=== PATIENT | female | born 1970 | race Caucasian/White ===

== ENCOUNTER 2019-10-28 11:15 | Emergency (ER) | payer MEDICAID, SELFPAY ==
[2019-10-28 11:30] VITALS: PULSE 102; RESP 20; TEMP 36.7; O2SAT 92; BMI 41.1
[2019-10-28 11:36] VITALS: BP 204/126
--- NOTE | 2019-10-28 11:42 | W.ED.GENADLT ---
HPI - General Adult General: Chief complaint: Headache Stated complaint: H/A Time Seen by Provider: 10/28/19 11:31 History of Present Illness: HPI narrative: Patient is had a headache for 2 weeks. I reviewed her MRI from February where she says she was told she had a mass in her brain and there is no mass on that report. Patient relates that she feels like she has stress tension and possible migraine as she has had in the past. MD complaint: Headache Onset (ago): day(s) Location: head Severity: moderate Severity scale (1-10): 6 Quality: aching Pain Consistency: intermittent Relieving factors: none Associated symptoms: Reports no associated symptoms and headache(s); Deny chest pain, dyspnea, nausea, rash or vomiting Review of Systems Const: Denies: fever, chills or body aches Eyes: Denies: change in vision or blurry vision ENMT: Denies: throat pain or nasal congestion Card: Denies: chest pain or shortness of breath on exertion Resp: Denies: shortness of breath, productive cough or non-productive cough GI: Denies: abdominal pain, nausea or vomiting Musc: Denies: extremity pain Skin/Breast: Denies: rash Neuro: Reports: headache Psych: Denies: anxiety or depression Marlon/Lymph: Denies: easy bruising PFSH ED PFSH: Social History Smoking and tobacco status: never smoked Physical Exam Const: COMMON NORMALS: no apparent distress, average body habitus and oriented x3 HENMT: COMMON NORMALS: normocephalic HEAD & SCALP: normal to inspection and normocephalic FACE & SINUS: normal facial exam Eye: COMMON NORMALS: conjunctivae normal GENERAL EYE: normal appearance of both eyes CONJUNCTIVA: Yes conjunctivae normal Neck/C-Spine: COMMON NORMALS: no JVD Chest: COMMONS NORMALS: inspection of chest normal Resp: COMMON NORMALS: normal respiratory effort and clear to auscultation bilaterally AUSCULTATION: clear to auscultation bilaterally Cardio: COMMON NORMALS: no JVD, regular rate and regular rhythm RATE: regular rate RHYTHM: regular rhythm GI: COMMON NORMALS: normal to inspection, nondistended, normoactive bowel sounds Extremity: COMMON NORMALS: normal to inspection and full ROM Neuro: COMMON NORMALS: oriented x3 and CN's II-XII intact bilaterally Course Vital Signs: Vital signs: Vital Signs Temperature 98.0 F 10/28/19 11:30 Pulse Rate 102 H 10/28/19 11:30 Respiratory Rate 20 H 10/28/19 11:30 Blood Pressure 204/126 10/28/19 11:36 Pulse Oximetry 92 10/28/19 11:30 Coding Level of Care Code ED Concrete Finisher Apprentice for Evelyn Berg
[2019-10-28] MEDS: sodium chloride 0.9% 1,000 ML 999 ML IV (12:02)
[2019-10-28] MEDS: metoclopramide 5 mg/mL SDV 2 mL 10 MG IVP (12:03)
[2019-10-28] MEDS: ketorolac 30 mg/mL INJ IVP (12:04)
[2019-10-28 13:36] VITALS: BP 172/100; PULSE 84; RESP 16; TEMP 36.3; O2SAT 97
== END 2019-10-28 13:37 | disposition home or self-care (01) ==
PROVIDERS: Emergency Provider Nurse Practitioner Family; Family Provider Nurse Practitioner Family; PCP Nurse Practitioner Family
DX: R51 Headache (principal)
CPT/HCPCS: 96361; 96374; 96375; 99282; 99283; J1885; J2765; J7030

== ENCOUNTER 2019-11-01 09:56 | Emergency (ER) | payer MEDICAID, SELFPAY ==
[2019-11-01 09:56] VITALS: BP 132/97; PULSE 96; RESP 20; TEMP 36.7; O2SAT 96; BMI 41.1
[2019-11-01 10:02] VITALS: O2SAT 96
--- NOTE | 2019-11-01 10:19 | W.ED.URI ---
HPI - URI/Sore Throat General: Chief Complaint: Upper Respiratory Infection Stated Complaint: FEVER N/V History of Present Illness: HPI Narrative: 49 yo female presents with nause, vomiting, fever. MD elicited complaint: fever PFSH ED PFSH: Social History Smoking and tobacco status: never smoked Course Vital Signs: Vital signs: Vital Signs Temperature 98.1 F 11/01/19 09:56 Pulse Rate 96 11/01/19 09:56 Respiratory Rate 20 H 11/01/19 09:56 Blood Pressure 132/97 11/01/19 09:56 Pulse Oximetry 96 11/01/19 09:56 Discharge Plan Discharge Prescriptions: No Action Esgic 50-325-40 mg capsule 1 cap PO Q6H PRN (Reason: pain) Qty: 14 RF: 0 Coding Level of Care Code ED Carpenter General for Evelyn Berg
[2019-11-01 10:47] LABS: Influenza A by IFA Negative (Negative); Influenza B by IFA Negative (Negative)
--- NOTE | 2019-11-01 11:12 | XR_ITS ---
WS: [id number] Portable AP upright chest, 11/01/2019 Clinical Data: cough/congestion Comparison: Portable chest, 02/08/2019. Findings: No nodules, masses or effusions are seen. The heart is normal. The pulmonary vascularity is not increased. No pneumonia or pneumothorax is seen. There is diminished aeration in the upper lobes unchanged. XR/XR chest 1V portable [id number] Impression: Probable chronic obstructive pulmonary disease.
--- NOTE | 2019-11-01 11:25 | PC.NURSE ---
RADIOLOGY AT BEDSIDE FOR CHEST XRAY
--- NOTE | 2019-11-01 11:34 | ED_ITS ---
HPI - General Adult General: Chief complaint: Upper Respiratory Infection Stated complaint: FEVER N/V Time Seen by Provider: 11/01/19 10:26 Source: patient Mode of arrival: ambulatory Limitations: no limitations History of Present Illness: HPI narrative: Patient is a 49-year-old female who presents to ED today with multiple medical complaints. She tells me over the past 2 weeks she has had intermittent fevers, body aches, cough, congestion, sinus pain, headache, abdominal pain, nausea, vomiting, and diarrhea. She has not had any blood in her vomit or diarrhea. She is afebrile upon arrival. Patient has multiple chronic medical conditions and is completely noncompliant with her medication regimen. According to pharmacy she has not had medications filled since June. Onset (ago): week(s) Associated symptoms: Reports headache(s), nausea and vomiting; Deny chest pain, dyspnea, rash, palpitations or syncope Review of Systems Const: Reports: fever, chills and body aches Eyes: Denies: change in vision or blurry vision ENMT: Reports: nasal discharge, nasal congestion and facial/sinus pain; Denies: throat pain, enlarged tonsils, painful swallowing, oral sores/lesions, ear pain or ear discharge Card: Denies: chest pain, palpitations, irregular heart rhythm, edema, swelling of feet/ankles, lightheadedness, syncope, pre-syncope, shortness of breath on exertion or shortness of breath when lying down Resp: Reports: productive cough and chest congestion; Denies: shortness of breath, non-productive cough, pain on inspiration, change in phlegm color or coughing up blood GI: Reports: abdominal pain, nausea, vomiting and diarrhea; Denies: vomiting blood, coffee grounds in vomit, blood in stool, black tarry stool, white/light colored stool or fatty stool : Denies: flank pain, difficulty urinating, painful urination, urinary frequency, urinary urgency, urinary hesitancy, vaginal odor or vaginal discharge Musc: Denies: neck pain, back pain, extremity pain, extremity swelling, joint pain or joint swelling Skin/Breast: Denies: rash Neuro: Reports: headache; Denies: numbness in extremities, weakness in extremities, changes in sensation, lack of coordination, difficulty walking or slurred speech PFSH ED PFSH: Social History Smoking and tobacco status: never smoked Physical Exam Const: COMMON NORMALS: no apparent distress, oriented x3, no limitations, healthy appearing and alert NUTRITIONAL APPEARANCE: obese morbidly obese HENMT: COMMON NORMALS: normocephalic, head/scalp atraumatic, hearing grossly normal bilaterally, external ears normal, EAC's normal, TM's normal bilaterally, nasal mucous membranes and turbinates normal, moist oral mucous membranes and oropharynx normal HEAD & SCALP: normocephalic and atraumatic FACE & SINUS: sinus tenderness maxillary (mild) NOSE: nasal mucous membranes and turbinates normal EXTERNAL EAR: Yes external ears normal EXTERNAL AUDITORY CANAL: EAC's normal TYMPANIC MEMBRANE: TM's normal bilaterally THROAT: posterior oropharynx normal, tonsils normal and uvula midline Eye: COMMON NORMALS: PERRL, EOMs intact bilaterally, conjunctivae normal and no scleral icterus CONJUNCTIVA: Yes conjunctivae normal PUPIL: Yes PERRL Neck/C-Spine: COMMON NORMALS: full ROM, no lymphadenopathy and no meningeal signs Lymph: LYMPHATIC: no lymphadenopathy noted Resp: COMMON NORMALS: normal respiratory effort and clear to auscultation bilaterally AUSCULTATION: clear to auscultation bilaterally Cardio: COMMON NORMALS: regular rate and regular rhythm RATE: regular rate RHYTHM: regular rhythm GI: COMMON NORMALS: normal to inspection, nondistended, normoactive bowel sounds, soft to palpation and no hepatosplenomegaly PALPATION: Yes soft, Yes tender (mild diffusely; non surgical abdomen) and Yes no hepatosplenomegaly : COMMON NORMALS: Yes no CVA tenderness BLADDER/KIDNEY EXAM: Yes no CVA tenderness Back/Pelvis: COMMON NORMALS: no CVA tenderness Extremity: COMMON NORMALS: normal to inspection Neuro: WAQAS COMA SCALE: document GCS findings Waqas coma scale eye opening: Spontaneous [place] coma scale verbal response: Orientated Waqas coma scale motor response: Obey commands [place] coma scale total score: 15 COMMON NORMALS: oriented x3, CN's II-XII intact bilaterally, moves all extremities, no focal motor deficits, no sensory deficits noted and gait normal SENSORIUM/ORIENTATION: Yes alert MENINGEAL SIGNS: Yes no meningeal signs Skin: COMMON NORMALS: no rashes or lesions noted GENERAL SKIN EXAM: no rashes or lesions noted Course Vital Signs: Vital signs: Vital Signs Temperature 98.1 F 11/01/19 09:56 Pulse Rate 82 11/01/19 13:00 Respiratory Rate 19 H 11/01/19 13:00 Blood Pressure 116/72 11/01/19 13:00 Pulse Oximetry 95 11/01/19 13:00 MDM - General Adult MDM Narrative: Medical decision making narrative: Patient's physical exam is benign. Her vitals are completely stable. CXR shows probable COPD but no acute consolidation or active process. Influenza was negative. Blood work does not show any concerning abnormalities. She has no evidence for DKA. Symptoms most likely sound like a viral syndrome. Patient needs to follow-up with primary care to get back on her medications and for follow-up if symptoms do not improve or fail to resolve. Return to ED precautions given. Lab Data: Labs: Lab Results 11/01/19 11/01/19 11/01/19 Range/Units 10:05 11:30 11:38 WBC 11.7 H (4.0-10.0) 10^3/ uL RBC 5.58 H (4.1-5.3) 10^6/u L Hgb 16.9 H (11.5-15.3) g/dL Hct 49.8 H (37.0-47.0) % MCV 89.2 (81-99) fL MCH 30.3 (28.0-34.0) pg MCHC 33.9 (30.0-36.0) g/dL RDW 12.7 (12.1-15.1) % Plt Count 305 (130-400) 10^3/c mm MPV 11.4 H (7.4-10.4) fL Neut % (Auto) 71.4 % Lymph % (Auto) 18.2 % Sabine % (Auto) 9.3 % Eos % (Auto) 0.6 % Baso % (Auto) 0.2 % Neut # (Auto) 8.3 H (1.8-7.7) 10^3/u L Lymph # (Auto) 2.1 (0.8-4.8) 10^3/u L Sabine # (Auto) 1.1 H (0.2-0.9) 10^3/u L Eos # (Auto) 0.1 (0.0-0.8) 10^3/u L Baso # (Auto) 0.0 (0.0-0.1) 10^3/u L Nucleated RBC % (a uto) 0 % Nucleated RBCs # 0.0 /100WBC Specimen Type Sample Site ABG pH (7.35-7.45) ABG pCO2 (35-45) mmHg ABG pO2 (80.0-100.0) mmH g ABG HCO3 (22-26) mmol/L ABG O2 Saturation ABG Base Excess (-2.0-2.0) mmol/ L Sukhi Test A-a O2 Gradient (5-10) mmHg Hematocrit (37-47) % Hgb O2 Saturation (95-100) % Carboxyhemoglobin (0.4-20.1) %THgb Methemoglobin (0.4-1.5) % Total Hemoglobin (12-16) g/dL Ionized Calcium (1.1-1.4) mmol/L O2 Delivery Device FiO2 % Alternative Energy Engineer ID Sodium (136-145) mmol/L Potassium (3.5-5.1) mmol/L Chloride (98-107) mmol/L Carbon Dioxide (22-29) mmol/L Anion Gap (5-19) BUN (6-20) mg/dL Creatinine (0.5-0.9) mg/dL GFR Calculation (90-130) mL/min Glucose (65-115) mg/dL Calcium (8.5-10.5) mg/dL Total Bilirubin (0.15-1.2) mg/dL AST (0-32) U/L ALT (0-33) U/L Alkaline Phosphata se (35-105) IU/L Total Protein (6.6-8.7) g/dL Albumin (3.5-5.2) g/dL Globulin (1.3-4.6) g/dL Lipase (13-60) U/L HCG, Qual (Negative) Urine Color Yellow (Yellow) Urine Appearance Clear (CLEAR) Urine pH 5.0 (5-7) Ur Specific Gravit y 1.015 (1.005-1.030) Urine Protein 2+ H (Negative) Urine Glucose (UA) 2+ (Normal) Urine Ketones 1+ H (Negative) Urine Blood Neg (Negative) Urine Nitrate Negative (Negative) Urine Bilirubin 1+ H (NEGATIVE) Urine Urobilinogen Norm (Negative) mg/dL Ur Leukocyte Maribel ase Negative (Negative) Urine RBC None (0-2) /hpf Urine WBC None (0-5) /hpf Ur Squamous Epith Cells 5-10 H (0-5) Urine Bacteria 1+ H (NONE) Urine Mucus 2+ Serum Ketones (Negative) Influenza Type A A g Negative (Negative) POC Influenza B Ag Negative (Negative) 11/01/19 11/01/19 11/01/19 Range/Units 11:38 11:38 11:38 WBC (4.0-10.0) 10^3/ uL RBC (4.1-5.3) 10^6/u L Hgb (11.5-15.3) g/dL Hct (37.0-47.0) % MCV (81-99) fL MCH (28.0-34.0) pg MCHC (30.0-36.0) g/dL RDW (12.1-15.1) % Plt Count (130-400) 10^3/c mm MPV (7.4-10.4) fL Neut % (Auto) % Lymph % (Auto) % Sabine % (Auto) % Eos % (Auto) % Baso % (Auto) % Neut # (Auto) (1.8-7.7) 10^3/u L Lymph # (Auto) (0.8-4.8) 10^3/u L Sabine # (Auto) (0.2-0.9) 10^3/u L Eos # (Auto) (0.0-0.8) 10^3/u L Baso # (Auto) (0.0-0.1) 10^3/u L Nucleated RBC % (a uto) % Nucleated RBCs # /100WBC Specimen Type Sample Site ABG pH (7.35-7.45) ABG pCO2 (35-45) mmHg ABG pO2 (80.0-100.0) mmH g ABG HCO3 (22-26) mmol/L ABG O2 Saturation ABG Base Excess (-2.0-2.0) mmol/ L Sukhi Test A-a O2 Gradient (5-10) mmHg Hematocrit (37-47) % Hgb O2 Saturation (95-100) % Carboxyhemoglobin (0.4-20.1) %THgb Methemoglobin (0.4-1.5) % Total Hemoglobin (12-16) g/dL Ionized Calcium (1.1-1.4) mmol/L O2 Delivery Device FiO2 % Alternative Energy Engineer ID Sodium 130 L (136-145) mmol/L Potassium 4.1 (3.5-5.1) mmol/L Chloride 87 L (98-107) mmol/L Carbon Dioxide 28 (22-29) mmol/L Anion Gap 19.1 H (5-19) BUN 27 H (6-20) mg/dL Creatinine 0.9 (0.5-0.9) mg/dL GFR Calculation 66.8 L (90-130) mL/min Glucose 270 H (65-115) mg/dL Calcium 9.5 (8.5-10.5) mg/dL Total Bilirubin 0.3 (0.15-1.2) mg/dL AST 36 H (0-32) U/L ALT 32 (0-33) U/L Alkaline Phosphata se 93 (35-105) IU/L Total Protein 8.7 (6.6-8.7) g/dL Albumin 3.6 (3.5-5.2) g/dL Globulin 5.1 H (1.3-4.6) g/dL Lipase 36 (13-60) U/L HCG, Qual Negative (Negative) Urine Color (Yellow) Urine Appearance (CLEAR) Urine pH (5-7) Ur Specific Gravit y (1.005-1.030) Urine Protein (Negative) Urine Glucose (UA) (Normal) Urine Ketones (Negative) Urine Blood (Negative) Urine Nitrate (Negative) Urine Bilirubin (NEGATIVE) Urine Urobilinogen (Negative) mg/dL Ur Leukocyte Maribel ase (Negative) Urine RBC (0-2) /hpf Urine WBC (0-5) /hpf Ur Squamous Epith Cells (0-5) Urine Bacteria (NONE) Urine Mucus Serum Ketones Negative (Negative) Influenza Type A A g (Negative) POC Influenza B Ag (Negative) 11/01/19 Range/Units 12:10 WBC (4.0-10.0) 10^3/ uL RBC (4.1-5.3) 10^6/u L Hgb (11.5-15.3) g/dL Hct (37.0-47.0) % MCV (81-99) fL MCH (28.0-34.0) pg MCHC (30.0-36.0) g/dL RDW (12.1-15.1) % Plt Count (130-400) 10^3/c mm MPV (7.4-10.4) fL Neut % (Auto) % Lymph % (Auto) % Sabine % (Auto) % Eos % (Auto) % Baso % (Auto) % Neut # (Auto) (1.8-7.7) 10^3/u L Lymph # (Auto) (0.8-4.8) 10^3/u L Sabine # (Auto) (0.2-0.9) 10^3/u L Eos # (Auto) (0.0-0.8) 10^3/u L Baso # (Auto) (0.0-0.1) 10^3/u L Nucleated RBC % (a uto) % Nucleated RBCs # /100WBC Specimen Type Arterial Sample Site Radial, right ABG pH 7.38 (7.35-7.45) ABG pCO2 46.0 H (35-45) mmHg ABG pO2 53.2 L (80.0-100.0) mmH g ABG HCO3 26.9 H (22-26) mmol/L ABG O2 Saturation 87.9 ABG Base Excess 1.1 (-2.0-2.0) mmol/ L Sukhi Test Pos A-a O2 Gradient 40.1 H (5-10) mmHg Hematocrit 47.1 H (37-47) % Hgb O2 Saturation 86.6 L (95-100) % Carboxyhemoglobin 1.2 (0.4-20.1) %THgb Methemoglobin 0.3 L (0.4-1.5) % Total Hemoglobin 15.4 (12-16) g/dL Ionized Calcium 1.1 (1.1-1.4) mmol/L O2 Delivery Device None FiO2 21.0 % Alternative Energy Engineer ID ed Sodium 133.0 (136-145) mmol/L Potassium 3.5 (3.5-5.1) mmol/L Chloride (98-107) mmol/L Carbon Dioxide (22-29) mmol/L Anion Gap (5-19) BUN (6-20) mg/dL Creatinine (0.5-0.9) mg/dL GFR Calculation (90-130) mL/min Glucose 208.0 H (65-115) mg/dL Calcium (8.5-10.5) mg/dL Total Bilirubin (0.15-1.2) mg/dL AST (0-32) U/L ALT (0-33) U/L Alkaline Phosphata se (35-105) IU/L Total Protein (6.6-8.7) g/dL Albumin (3.5-5.2) g/dL Globulin (1.3-4.6) g/dL Lipase (13-60) U/L HCG, Qual (Negative) Urine Color (Yellow) Urine Appearance (CLEAR) Urine pH (5-7) Ur Specific Gravit y (1.005-1.030) Urine Protein (Negative) Urine Glucose (UA) (Normal) Urine Ketones (Negative) Urine Blood (Negative) Urine Nitrate (Negative) Urine Bilirubin (NEGATIVE) Urine Urobilinogen (Negative) mg/dL Ur Leukocyte Maribel ase (Negative) Urine RBC (0-2) /hpf Urine WBC (0-5) /hpf Ur Squamous Epith Cells (0-5) Urine Bacteria (NONE) Urine Mucus Serum Ketones (Negative) Influenza Type A A g (Negative) POC Influenza B Ag (Negative) Imaging Data^: CXR: Radiologist's impression: [place] [address] XRay Report Signed Patient: Felicia Valdez Unit #: [id number] : 1970 Age/Sex: 49 / F ADM Date: 11/01/19 Loc: ER Room/Bed: Attending Dr: Ordering Provider/Ordering MD: Shayna Good Date of Service: 11/01/19 Procedure(s): XR chest 1V portable [id number] Accession Number(s): [id number] Report Number: [id number] WS: [id number] Portable AP upright chest, 11/01/2019 Clinical Data: cough/congestion Comparison: Portable chest, 02/08/2019. Findings: No nodules, masses or effusions are seen. The heart is normal. The pulmonary vascularity is not increased. No pneumonia or pneumothorax is seen. There is diminished a eration in the upper lobes unchanged. XR/XR chest 1V portable [id number] Impression: Probable chronic obstructive pulmonary disease. Dictated By: Yu Gauthier MD Signed By: Yu Gauthier MD Signed Date/Time: 11/01/19 1127 DD/ 1126 Discharge Plan Discharge Patient Disposition: Home, Self-Care Clinical Impression: Viral syndrome Condition: Stable Prescriptions: No Action [id number] [Esgic] 50-325-40 mg capsule 1 cap PO Q6H PRN (Reason: pain) Qty: 14 RF: 0 atorvastatin 40 mg tablet 40 mg PO DAILY RF: 0 metoprolol tartrate 100 mg tablet 100 mg PO BID RF: 0 gabapentin 400 mg capsule 400 mg PO TID RF: 0 Aspir-81 81 mg Tablet,Delayed Release (Dr/Ec) 81 mg PO DAILY RF: 0 Norvasc 10 mg tablet 10 mg PO DAILY RF: 0 metformin 1,000 mg tablet 1,000 mg PO BID RF: 0 nitroglycerin 0.4 mg tablet, sublingual 0.4 mg sublingual DIRECTED PRN (Reason: Chest Pain) RF: 0 mirtazapine 15 mg tablet 7.5 mg PO DAILY RF: 0 losartan 100 mg tablet 100 mg PO DAILY RF: 0 Victoza 2-Bryan 0.6 mg/0.1 mL (18 mg/3 mL) pen injector See Rx Instructions .ROUTE .COMPLEX RF: 0 Discharge Orders: Discharge Order (Routine); Ordered 11/01/19 Ordered By: Shayna Good Referrals: Yesy Carbajal FNP-C [Primary Care Provider] - Discharge Diet: Usual diet Discharge Activity: Increase activity as tolerated Patient Instructions: Viral Syndrome - Adult Activity Restrictions/Additional Instructions: Follow up with primary care next week for continued symptoms. Discharge Date/Time: 11/01/19 12:58 Coding Level of Care Code ED Real Estate Office Supervisor for Chg Fwd Exam Comprehensive
[2019-11-01] MEDS: sodium chloride 0.9% 1,000 ML 999 ML IV (11:40)
[2019-11-01 11:46] VITALS: BP 153/96; PULSE 83; RESP 18; O2SAT 86
[2019-11-01 11:46] LABS: Basophils % 0.2 %; Eosinophils # 0.1 10^3/uL (0.0-0.8); Eosinophils % 0.6 %; Hematocrit 49.8 % (37.0-47.0); Hemoglobin 16.9 g/dL (11.5-15.3); Lymphocytes # 2.1 10^3/uL (0.8-4.8); Lymphocytes % 18.2 %; Mean Corpuscular HGB Conc 33.9 g/dL (30.0-36.0); Mean Corpuscular Hemoglobin 30.3 pg (28.0-34.0); Mean Corpuscular Volume 89.2 fL (81-99); Mean Platelet Volume 11.4 fL (7.4-10.4); Monocytes # 1.1 10^3/uL (0.2-0.9); Monocytes % 9.3 %; Neutrophils # 8.3 10^3/uL (1.8-7.7); Neutrophils % 71.4 %; Nucleated Red Blood Cells % 0 %; Platelet Count 305 10^3/cmm (130-400); Red Blood Count 5.58 10^6/uL (4.1-5.3); Red Cell Distribution Width 12.7 % (12.1-15.1); White Blood Count 11.7 10^3/uL (4.0-10.0)
[2019-11-01 11:52] LABS: Add Urine Microscopic? YES; Bilirubin Urine 1+ (NEGATIVE); Blood Urine Neg (Negative); Glucose Urine UA 2+ (Normal); Ketones Urine 1+ (Negative); Leukocyte Esterase Urine Negative (Negative); Nitrate Urine Negative (Negative); Protein Urine 2+ (Negative); Specific Gravity, Urine 1.015 (1.005-1.030); Urine Appearance Clear (CLEAR); Urine Color Yellow (Yellow); Urobilinogen Urine Norm (Negative)
[2019-11-01 11:57] LABS: HCG, Serum Qual Negative (Negative)
[2019-11-01 12:05] LABS: Alanine Aminotransferase 32 U/L (0-33); Albumin Level 3.6 g/dL (3.5-5.2); Alkaline Phosphatase 93 IU/L (35-105); Anion Gap 19.1 (5-19); Aspartate Amino Transferase 36 U/L (0-32); Blood Urea Nitrogen 27 mg/dL (6-20); Calcium 9.5 mg/dL (8.5-10.5); Carbon Dioxide 28 mmol/L (22-29); Chloride 87 mmol/L (98-107); Globulin 5.1 g/dL (1.3-4.6); Glomerular Filtration Rate 66.8 mL/min (90-130); Glucose 270 mg/dL (65-115); Lipase 36 U/L (13-60); Potassium 4.1 mmol/L (3.5-5.1); Sodium 130 mmol/L (136-145); Total Bilirubin 0.3 mg/dL (0.15-1.2); Total Protein 8.7 g/dL (6.6-8.7)
[2019-11-01 12:08] LABS: Bacteria Urine 1+; Mucus Urine 2+
[2019-11-01 12:09] LABS: Add Urine Culture? No
[2019-11-01 12:11] VITALS: BP 150/96; PULSE 80; RESP 18; O2SAT 94; O2SAT 98
[2019-11-01 12:21] LABS: Ketone (Acetest) Serum Negative (Negative)
[2019-11-01 12:21] LABS: ABG PH Result 7.38 (7.35-7.45); Alveolar-Arterial Oxygen Gradi 40.1 mmHg (5-10); Arterial Blood Gas Hematocrit 47.1 % (37-47); Base Excess ABG 1.1 mmol/L (-2.0-2.0); Blood Gas Allen Test Pos; Blood Gas Sample Site Radial, right; Blood Gas Sample Type Arterial; Carboxyhemoglobin 1.2 %THgb (0.4-20.1); HCO3 ABG 26.9 mmol/L (22-26); HGB O2 Sat 86.6 % (95-100); Ionized Calcium Level - ABG 1.1 mmol/L (1.1-1.4); Methemoglobin 0.3 % (0.4-1.5); Oxygen Saturation ABG 87.9; PO2 ABG 53.2 mmHg (80.0-100.0); Potassium Level - ABG 3.5 mmol/L (3.5-5.0); Total Hemoglobin 15.4 g/dL (12-16)
[2019-11-01 13:00] VITALS: BP 116/72; PULSE 82; RESP 19; O2SAT 95
== END 2019-11-01 12:58 | disposition home or self-care (01) ==
PROVIDERS: Family Medicine; Emergency Provider Physician Assistant; Family Provider Nurse Practitioner Family; PCP Nurse Practitioner Family
DX: B34.9 Viral infection, unspecified (principal); E66.01 Morbid (severe) obesity due to excess calories; Z68.41 Body mass index [BMI] 40.0-44.9, adult
CPT/HCPCS: 36600; 71045; 80051; 80053; 81001; 82009; 82810; 83690; 83986; 84703; 85025; 87804; 96360; 99283; J7030

== ENCOUNTER 2019-11-27 15:37 | Emergency (ER) | payer MEDICAID, SELFPAY ==
[2019-11-27 15:39] VITALS: BP 146/98; PULSE 103; RESP 18; TEMP 37.1; O2SAT 93; BMI 41.5
[2019-11-27 15:45] VITALS: PULSE 95; RESP 18; O2SAT 87
--- NOTE | 2019-11-27 15:46 | XR_ITS ---
WS: [id number] Portable AP upright chest, 11/27/2019 Clinical Data: cough/congestion Comparison: Portable chest, 11/01/2019 Findings: No nodules, masses or effusions are seen. The heart is normal. The pulmonary vascularity is not increased. No pneumonia or pneumothorax is seen. XR/XR chest 1V portable [id number] Impression: Negative chest.
--- NOTE | 2019-11-27 15:58 | W.ED.URI ---
HPI - URI/Sore Throat General: Chief Complaint: Shortness of Breath/Dyspnea Stated Complaint: SOB, chest pain, cough Time Seen by Provider: 11/27/19 15:46 Source: patient Mode of arrival: ambulatory Limitations: no limitations History of Present Illness: HPI Narrative: Patient is a 49-year-old female who presents to ED today with complaints of a productive cough over the past month. Patient tells me I think I overdid it with the cleaning chemicals . 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 She is complaining of thick productive white phlegm. She states she has a sore throat and painful swallowing. She denies difficulty breathing. Reports some shortness of breath and chest pains only when coughing. Reports a fever yesterday but otherwise afebrile throughout this course. No sick contacts. No recent travel. MD elicited complaint: cough and sore throat Able to tolerate fluids by mouth: Yes Exacerbating factors: other (coughing) Relieving factors: nothing Associated symptoms: Reports fever(s) (subjective; yesterday ); Deny abdominal pain, chills, chest pain (only when coughing), diarrhea, ear or mastoid pain, headache(s), nasal congestion, nausea, sinus pain or vomiting Treatments prior to arrival: none Review of Systems General: Reports: 10 or more systems reviewed and unremarkable except in HPI and below Const: Reports: fever (subjective; yesterday ); Denies: chills, body aches, change in appetite, change in weight, fatigue or malaise Eyes: Denies: change in vision, blurry vision or photophobia ENMT: Reports: throat pain, enlarged tonsils and painful swallowing; Denies: uvular edema, oral sores/lesions, dental pain, ear pain, nasal discharge, nasal congestion or facial/sinus pain Card: Denies: chest pain (only when coughing), palpitations, irregular heart rhythm, edema, swelling of feet/ankles, lightheadedness, syncope, pre-syncope, shortness of breath on exertion, shortness of breath when lying down or leg pain with exertion Resp: Reports: shortness of breath (only when coughing), productive cough and chest congestion; Denies: wheezing, pain on inspiration or coughing up blood GI: Denies: abdominal pain, nausea, vomiting or diarrhea Musc: Denies: neck pain or back pain Skin/Breast: Denies: rash Neuro: Denies: headache, numbness in extremities, weakness in extremities or changes in sensation PFSH ED PFSH: Social History Smoking and tobacco status: never smoked Physical Exam Const: COMMON NORMALS: no apparent distress, oriented x3, no limitations and alert NUTRITIONAL APPEARANCE: obese morbidly obese HENMT: COMMON NORMALS: normocephalic, head/scalp atraumatic, hearing grossly normal bilaterally, external ears normal, EAC's normal, TM's normal bilaterally, external nose normal, nasal mucous membranes and turbinates normal, moist oral mucous membranes and gingiva normal HEAD & SCALP: normal to inspection, normocephalic and atraumatic FACE & SINUS: normal facial exam and sinuses nontender NOSE: external nose normal and nasal mucous membranes and turbinates normal EXTERNAL EAR: Yes external ears normal EXTERNAL AUDITORY CANAL: EAC's normal TYMPANIC MEMBRANE: TM's normal bilaterally MOUTH: lip normal and tongue normal THROAT: tonsils abnormal bilateral erythema and hypertrophy; no peritonsillar mass and no uvular edema Eye: COMMON NORMALS: PERRL and EOMs intact bilaterally PUPIL: Yes PERRL Neck/C-Spine: COMMON NORMALS: full ROM, no lymphadenopathy and no meningeal signs Chest: COMMONS NORMALS: inspection of chest normal and palpation of chest normal Resp: COMMON NORMALS: normal respiratory effort and clear to auscultation bilaterally AUSCULTATION: clear to auscultation bilaterally OTHER: RN stated she saw pt at 88% on RA thus placed her on 2L; reported this was after coughing; I removed O2 while I was in the room and during my entire exam and patient talking she remained at 94-96% with good waveforms. Cardio: COMMON NORMALS: regular rate and regular rhythm RATE: regular rate RHYTHM: regular rhythm Neuro: COMMON NORMALS: oriented x3 SENSORIUM/ORIENTATION: Yes alert MENINGEAL SIGNS: Yes no meningeal signs Skin: COMMON NORMALS: no rashes or lesions noted GENERAL SKIN EXAM: no rashes or lesions noted Course Vital Signs: Vital signs: Vital Signs Temperature 98.8 F 11/27/19 15:39 Pulse Rate 95 11/27/19 15:45 Respiratory Rate 18 11/27/19 15:45 Blood Pressure 146/98 11/27/19 15:39 Pulse Oximetry 87 L 11/27/19 15:45 MDM - URI/Sore Throat MDM Narrative: Medical decision making narrative: Patient is strep positive. She was given IM Bicillin-LA for treatment of this. Still with possibility of bronchitis given her productive cough. We will go ahead and put her on some steroids and albuterol. Patient was once again reexamined after nurse stating she saw patient's O2 on the monitor dipping down to 87-88%. Patient again during my entire reexamination with no oxygen was satting at 94%. She has absolutely no signs or symptoms of respiratory distress. Her lungs were clear to auscultation. Her CXR is normal. Patient at this time is stable to go home with recommendations to continue to self quarantine. Lab Data: Labs: Lab Results 11/27/19 11/27/19 11/27/19 Range/Units 15:59 16:10 16:10 WBC 15.8 H (4.0-10.0) 10^3/ uL RBC 5.19 (4.1-5.3) 10^6/u L Hgb 15.2 (11.5-15.3) g/dL Hct 45.9 (37.0-47.0) % MCV 88.4 (81-99) fL MCH 29.3 (28.0-34.0) pg MCHC 33.1 (30.0-36.0) g/dL RDW 13.0 (12.1-15.1) % Plt Count 325 (130-400) 10^3/c mm MPV 11.3 H (7.4-10.4) fL Neut % (Auto) 66.8 % Lymph % (Auto) 20.7 % [place] % (Auto) 9.3 % Eos % (Auto) 2.1 % Baso % (Auto) 0.5 % Neut # (Auto) 10.5 H (1.8-7.7) 10^3/u L Lymph # (Auto) 3.3 (0.8-4.8) 10^3/u L [place] # (Auto) 1.5 H (0.2-0.9) 10^3/u L Eos # (Auto) 0.3 (0.0-0.8) 10^3/u L Baso # (Auto) 0.1 (0.0-0.1) 10^3/u L Nucleated RBC % (a uto) 0 % Nucleated RBCs # 0.0 /100WBC Sodium 134 L (136-145) mmol/L Potassium 4.3 (3.5-5.1) mmol/L Chloride 93 L (98-107) mmol/L Carbon Dioxide 27 (22-29) mmol/L Anion Gap 18.3 (5-19) BUN 19 (6-20) mg/dL Creatinine 0.6 (0.5-0.9) mg/dL GFR Calculation 106.7 (90-130) mL/min Glucose 270 H (65-115) mg/dL Calculated Osmolal ity 284 L (285-295) mOsm/k g Calcium 9.9 (8.5-10.5) mg/dL Total Bilirubin 0.3 (0.15-1.2) mg/dL AST 19 (0-32) U/L ALT 25 (0-33) U/L Alkaline Phosphata se 114 H (35-105) IU/L Total Protein 8.3 (6.6-8.7) g/dL Albumin 3.6 (3.5-5.2) g/dL Globulin 4.7 H (1.3-4.6) g/dL Group A Strep Rapi d Positive H (Negative) Imaging Data^: CXR: Radiologist's impression: [address] [address] XRay Report Signed Patient: Felicia Valdez Unit #: [id number] : 1970 Age/Sex: 49 / F ADM Date: 11/27/19 Loc: ER Room/Bed: Attending Dr: Ordering Provider/Ordering MD: Shayna Good Date of Service: 11/27/19 Procedure(s): XR chest 1V portable [id number] Accession Number(s): [id number] Report Number: [id number] WS: [id number] Portable AP upright chest, 11/27/2019 Clinical Data: cough/congestion Comparison: Portable chest, 11/01/2019 Findings: No nodules, masses or effusions are seen. The heart is normal. The pulmonary vascularity is not increased. No pneumonia or pneumothorax is seen. XR/XR chest 1V portable [id number] Impression: Negative chest. Dictated By: Yu Gauthier MD Signed By: Yu Gauthier MD Signed Date/Time: 11/27/191605 DD/ 04 Discharge Plan Discharge Patient Disposition: Home, Self-Care Clinical Impression: Strep tonsillitis, Bronchitis Condition: Stable Prescriptions: New albuterol sulfate 90 mcg/actuation HFA aerosol inhaler 2 inh INHALATION Q4H PRN (Reason: shortness of breath) Qty: 6.7 RF: 0 prednisone 10 mg tablet 60 mg PO DAILY 5 Days Qty: 30 RF: 0 No Action [id number]-[id number] [Esgic] 50-325-40 mg capsule 1 cap PO Q6H PRN (Reason: pain) Qty: 14 RF: 0 atorvastatin 40 mg tablet 40 mg PO DAILY RF: 0 metoprolol tartrate 100 mg tablet 100 mg PO BID RF: 0 gabapentin 400 mg capsule 400 mg PO TID RF: 0 Aspir-81 81 mg Tablet,Delayed Release (Dr/Ec) 81 mg PO DAILY RF: 0 Norvasc 10 mg tablet 10 mg PO DAILY RF: 0 metformin 1,000 mg tablet 1,000 mg PO BID RF: 0 nitroglycerin 0.4 mg tablet, sublingual 0.4 mg sublingual DIRECTED PRN (Reason: Chest Pain) RF: 0 mirtazapine 15 mg tablet 7.5 mg PO DAILY RF: 0 losartan 100 mg tablet 100 mg PO DAILY RF: 0 Victoza 2-Bryan 0.6 mg/0.1 mL (18 mg/3 mL) pen injector See Rx Instructions .ROUTE .COMPLEX RF: 0 Discharge Orders: Discharge Order (Routine); Ordered 11/27/19 Ordered By: Shayna Good Referrals: Yesy Carbajal FNP-C [Primary Care Provider] - Patient Instructions: Strep Throat (ED) Coding Level of Care Code ED Unix Manager for Chg Fwd Exam Comprehensive
[2019-11-27 16:00] VITALS: BP 168/110; PULSE 97; O2SAT 94
[2019-11-27 16:17] LABS: Basophils # 0.1 10^3/uL (0.0-0.1); Basophils % 0.5 %; Eosinophils # 0.3 10^3/uL (0.0-0.8); Eosinophils % 2.1 %; Hematocrit 45.9 % (37.0-47.0); Hemoglobin 15.2 g/dL (11.5-15.3); Lymphocytes # 3.3 10^3/uL (0.8-4.8); Lymphocytes % 20.7 %; Mean Corpuscular HGB Conc 33.1 g/dL (30.0-36.0); Mean Corpuscular Hemoglobin 29.3 pg (28.0-34.0); Mean Corpuscular Volume 88.4 fL (81-99); Mean Platelet Volume 11.3 fL (7.4-10.4); Monocytes # 1.5 10^3/uL (0.2-0.9); Monocytes % 9.3 %; Neutrophils # 10.5 10^3/uL (1.8-7.7); Neutrophils % 66.8 %; Nucleated Red Blood Cells % 0 %; Platelet Count 325 10^3/cmm (130-400); Red Blood Count 5.19 10^6/uL (4.1-5.3); White Blood Count 15.8 10^3/uL (4.0-10.0)
[2019-11-27 16:23] LABS: Rapid Strep A Test Positive (Negative)
[2019-11-27 16:32] LABS: Alanine Aminotransferase 25 U/L (0-33); Albumin Level 3.6 g/dL (3.5-5.2); Alkaline Phosphatase 114 IU/L (35-105); Anion Gap 18.3 (5-19); Aspartate Amino Transferase 19 U/L (0-32); Blood Urea Nitrogen 19 mg/dL (6-20); Calcium 9.9 mg/dL (8.5-10.5); Carbon Dioxide 27 mmol/L (22-29); Chloride 93 mmol/L (98-107); Globulin 4.7 g/dL (1.3-4.6); Glomerular Filtration Rate 106.7 mL/min (90-130); Glucose 270 mg/dL (65-115); Osmolality Calculated 284 mOsm/kg (285-295); Potassium 4.3 mmol/L (3.5-5.1); Sodium 134 mmol/L (136-145); Total Bilirubin 0.3 mg/dL (0.15-1.2); Total Protein 8.3 g/dL (6.6-8.7)
[2019-11-27] MEDS: penicillin g (L-A) 1,200,000 unit/2 mL Syr 1200000 UNIT IM (17:18)
[2019-11-27 17:45] VITALS: BP 144/102; PULSE 100; RESP 18; O2SAT 93
== END 2019-11-27 17:45 | disposition home or self-care (01) ==
PROVIDERS: Emergency Provider Physician Assistant; Family Provider Nurse Practitioner Family; PCP Nurse Practitioner Family
DX: J03.00 Acute streptococcal tonsillitis, unspecified (principal); J40 Bronchitis, not specified as acute or chronic; E66.01 Morbid (severe) obesity due to excess calories; Z68.41 Body mass index [BMI] 40.0-44.9, adult
CPT/HCPCS: 12345; 36415; 71045; 80053; 85025; 87880; 96372; 99281; 99283; J0561

== ENCOUNTER 2021-04-03 11:55 | Emergency (ER) | payer MEDICAID, SELFPAY ==
[2021-04-03 12:22] VITALS: BP 161/112; PULSE 74; RESP 17; TEMP 37.1; O2SAT 95; BMI 42.9
--- NOTE | 2021-04-03 12:33 | XR_ITS ---
WS: [id number] XR chest 1V portable [id number] REASON FOR EXAM: reduced breath sounds FINDINGS: Mild tortuosity of the thoracic aorta without aneurysmal dilatation. Normal heart size. Calcified granulomatous changes in both hemithoraces. No acute pulmonary parenchymal or pleural abnor mality is identified. Bony thorax is intact. XR/XR chest 1V portable [id number] IMPRESSION: No acute chest abnormality.
--- NOTE | 2021-04-03 12:33 | ECG_ITS ---
[facility] Test Date: 2021-04-03 Pat Name: Felicia Valdez Department: Room: Gender: Female Neurology Nurse: : 1970 Requested By: Jose E Finn Order Number: [id number] Reading MD: RADHA PURVIS Measurements Intervals [place] Rate: 74 P: 44 [place]: 208 QRS: -40 QRSD: 118 T: 155 QT: 387 QTc: 432 Interpretive Statements SINUS RHYTHM MARKED LEFT AXIS DEVIATION [QRS AXIS < -30] INCOMPLETE RIGHT BUNDLE BRANCH BLOCK [90+ ms QRS DURATION, TERMINAL R IN V1/V2, 40+ ms S IN I/aVL/V4/V5/V6] SEPTAL MYOCARDIAL INFARCTION [40+ ms Q WAVE IN V1/V2], PROBABLY OLD MODERATE T-WAVE ABNORMALITY, CONSIDER LATERAL ISCHEMIA [-0.1+ mV T WAVE IN I/aVL/V5/V6] INTERPRETATION BASED ON A DEFAULT AGE OF 40 YEARS Compared to ECG 02/08/2019 14:01:19 No significant change Electronically Signed On 04-04-2021 20:29:29 CDT by RADHA PURVIS [id number] f
--- NOTE | 2021-04-03 13:52 | W.ED.CHESTPA ---
HPI - Chest Pain General: Chief Complaint: Chest Pain Stated Complaint: CP Time Seen by Provider: 04/03/21 13:10 History of Present Illness: HPI narrative: 51-year-old female with a known history of left ventricular mural thrombus on Coumadin. She was Coumadin was stopped for an angiogram last week which was negative. She has not restarted the Coumadin lost her prescription. She is currently at about 10 days since she has been on her Coumadin. She had stopped taking it for 4 days prior to the procedure. She has some left-sided chest discomfort that is vague in nature she has had no shortness of breath no difficulty speech swallowing. No abdominal pain no fever sweats or chills MD complaint: chest pain and chest heaviness Onset (ago): minute(s) Timing of current episode: episodic Prior episodes: Yes Onset: during rest Pain location: left chest Pain radiation: none Severity: mild Quality: tightness and heaviness Relieving factors: nothing Exacerbating factors: nothing Associated symptoms: Deny abdominal pain, diaphoresis, dyspnea, fever(s), leg edema, palpitations, sense of impending doom, syncope or vomiting Treatment prior to arrival: none Review of Systems Const: Denies: fever(s) or diaphoresis ENMT: Denies: throat pain, ear or mastoid pain, nasal discharge or nasal congestion Card: Denies: palpitations or syncope Resp: Denies: dyspnea GI: Denies: abdominal pain or vomiting : Denies: flank pain, difficulty voiding, dysuria, urinary frequency or urinary urgency Skin/Breast: Denies: rash or pruritus PFS ED PFSH: Social History Smoking and tobacco status: never smoked Physical Exam Const: COMMON NORMALS: no acute distress GENERAL APPEARANCE: cooperative and comfortable ORIENTATION/CONSCIOUSNESS: Yes awake, Yes oriented to person, Yes oriented to place and Yes oriented to time HENMT: COMMON NORMALS: normocephalic, atraumatic and hearing grossly normal bilaterally HEAD & SCALP: normocephalic and atraumatic Neck/C-Spine: COMMON NORMALS: no JVD Resp: COMMON NORMALS: normal respiratory effort, No retractions, No use of accessory muscles and clear to auscultation bilaterally AUSCULTATION: clear to auscultation bilaterally Cardio: COMMON NORMALS: no JVD, regular rate, regular rhythm and No murmurs present (Cardio) RATE: regular rate RHYTHM: regular rhythm GI: COMMON NORMALS: Soft to palpation and No hepatosplenomegaly present AUSCULTATION: Yes normoactive bowel sounds PALPATION: Yes Soft to palpation, No Tenderness to palpation present (GI), No Guarding due to palpation present (GI) and Yes No hepatosplenomegaly present Extremity: COMMON NORMALS: normal to inspection, capillary refill normal, no clubbing, cyanosis or edema, no calf tenderness and no pedal edema Neuro: SENSORIUM/ORIENTATION: Yes oriented to person, Yes oriented to place and Yes oriented to time Skin: COMMON NORMALS: no rashes or lesions noted GENERAL SKIN EXAM: no rashes or lesions noted Course Vital Signs: Vital signs: Vital Signs Temperature 98.7 F 04/03/21 16:00 Pulse Rate 73 04/03/21 16:47 Respiratory Rate 18 04/03/21 16:47 Blood Pressure 188/116 04/03/21 16:47 Pulse Oximetry 96 04/03/21 16:47 MDM - Chest Pain MDM Narrative: Medical decision making narrative: Labs unremarkable refill all of her medications and try to get her set up with a primary care doctor. Her biggest concern she came in today was getting her medications refilled we will get her restarted on her Coumadin she should resume her previous dose and should get it INR checked within the next 3 to 5 days. Return if has further problems. Lab Data: Labs: Lab Results 04/03/21 04/03/21 04/03/21 Range/Units 14:00 14:00 14:00 WBC Cancelled Corrected WBC Cancelled RBC Cancelled Hgb Cancelled Hct Cancelled MCV Cancelled MCH Cancelled MCHC Cancelled RDW Cancelled Plt Count Cancelled MPV Cancelled Gran % Cancelled Neut % (Auto) Cancelled Lymph % (Auto) Cancelled [place] % (Auto) Cancelled Eos % (Auto) Cancelled Baso % (Auto) Cancelled Neut # (Auto) Cancelled Lymph # (Auto) Cancelled [place] # (Auto) Cancelled Eos # (Auto) Cancelled Baso # (Auto) Cancelled Absolute Gran (aut o) Cancelled Nucleated RBC % (a uto) Cancelled Nucleated RBCs # Cancelled PT Cancelled INR Cancelled D-Dimer Cancelled Sodium Cancelled Potassium Cancelled Chloride Cancelled Carbon Dioxide Cancelled Anion Gap Cancelled BUN Cancelled Creatinine Cancelled GFR Calculation Cancelled Glucose Cancelled Calculated Osmolal ity Cancelled Calcium Cancelled Total Bilirubin Cancelled AST Cancelled ALT Cancelled Alkaline Phosphata se Cancelled Troponin T Baselin e NT-Pro-B Natriuret Pep Cancelled Total Protein Cancelled Albumin Cancelled Globulin Cancelled Urine Color (Yellow) Urine Appearance (CLEAR) Urine pH (5-7) Ur Specific Gravit y (1.005-1.030) Urine Protein (Negative) Urine Glucose (UA) (Normal) Urine Ketones (Negative) Urine Blood (Negative) Urine Nitrate (Negative) Urine Bilirubin (Negative) Urine Urobilinogen (Negative) mg/dL Ur Leukocyte Maribel ase (Negative) Urine RBC (0-2) /hpf Urine WBC (0-5) /hpf Ur Squamous Epith Cells (0-5) /hpf Amorphous Sediment Urine Bacteria (NONE) /hpf 04/03/21 04/03/21 04/03/21 Range/Units 14:00 14:00 14:30 WBC 10.9 H Corrected WBC RBC 4.70 Hgb 14.4 Hct 42.6 MCV 90.6 MCH 30.6 MCHC 33.8 RDW 12.8 Plt Count 325 MPV 11.3 H Gran % Neut % (Auto) 59.9 Lymph % (Auto) 27.5 [place] % (Auto) 8.8 Eos % (Auto) 2.7 Baso % (Auto) 0.8 Neut # (Auto) 6.50 Lymph # (Auto) 3.0 [place] # (Auto) 1.0 H Eos # (Auto) 0.3 Baso # (Auto) 0.1 Absolute Gran (aut o) Nucleated RBC % (a uto) 0 Nucleated RBCs # 0.0 PT INR D-Dimer Sodium Potassium Chloride Carbon Dioxide Anion Gap BUN Creatinine GFR Calculation Glucose Calculated Osmolal ity Calcium Total Bilirubin AST ALT Alkaline Phosphata se Troponin T Baselin e Cancelled NT-Pro-B Natriuret Pep Total Protein Albumin Globulin Urine Color Yellow (Yellow) Urine Appearance Clear (CLEAR) Urine pH 5 (5-7) Ur Specific Gravit y 1.015 (1.005-1.030) Urine Protein 1+ H (Negative) Urine Glucose (UA) 4+ H (Normal) Urine Ketones Negative (Negative) Urine Blood Neg (Negative) Urine Nitrate Negative (Negative) Urine Bilirubin Neg (Negative) Urine Urobilinogen Norm (Negative) mg/dL Ur Leukocyte Maribel ase Negative (Negative) Urine RBC None (0-2) /hpf Urine WBC None (0-5) /hpf Ur Squamous Epith Cells 0-4 H (0-5) /hpf Amorphous Sediment Not Reportable Urine Bacteria 1+ H (NONE) /hpf 04/03/21 04/03/21 04/03/21 Range/Units 14:30 14:30 14:30 WBC Corrected WBC RBC Hgb Hct MCV MCH MCHC RDW Plt Count MPV Gran % Neut % (Auto) Lymph % (Auto) [place] % (Auto) Eos % (Auto) Baso % (Auto) Neut # (Auto) Lymph # (Auto) [place] # (Auto) Eos # (Auto) Baso # (Auto) Absolute Gran (aut o) Nucleated RBC % (a uto) Nucleated RBCs # PT 13.40 INR 0.99 D-Dimer 0.34 Sodium 136 Potassium 4.1 Chloride 98 Carbon Dioxide 27 Anion Gap 15.1 BUN 17 Creatinine 0.5 GFR Calculation 130.6 H Glucose 179 H Calculated Osmolal ity 288 Calcium 9.0 Total Bilirubin 0.2 AST 12 ALT 15 Alkaline Phosphata se 77 Troponin T Baselin e 15 H NT-Pro-B Natriuret Pep 180 H Total Protein 7.4 Albumin 4.0 Globulin 3.4 Urine Color (Yellow) Urine Appearance (CLEAR) Urine pH (5-7) Ur Specific Gravit y (1.005-1.030) Urine Protein (Negative) Urine Glucose (UA) (Normal) Urine Ketones (Negative) Urine Blood (Negative) Urine Nitrate (Negative) Urine Bilirubin (Negative) Urine Urobilinogen (Negative) mg/dL Ur Leukocyte Maribel ase (Negative) Urine RBC (0-2) /hpf Urine WBC (0-5) /hpf Ur Squamous Epith Cells (0-5) /hpf Amorphous Sediment Urine Bacteria (NONE) /hpf Discharge Plan Discharge Patient Disposition: Home Clinical Impression: Atypical chest pain, Mural thrombus of heart, Hypertension Condition: Stable Prescriptions: New albuterol sulfate 90 mcg/actuation HFA aerosol inhaler 2 inh inhalation Q4H PRN (Reason: shortness of breath or wheezing) Qty: 18 RF: 0 carvedilol 6.25 mg tablet 6.25 mg PO BID Qty: 60 RF: 0 Lasix 20 mg tablet 20 mg PO DAILY Qty: 30 RF: 0 gabapentin 100 mg capsule 200 mg PO DAILY Qty: 60 RF: 0 isosorbide mononitrate 60 mg tablet extended release 24 hr 60 mg PO DAILY Qty: 30 RF: 0 losartan 100 mg tablet 100 mg PO DAILY Qty: 30 RF: 0 spironolactone 25 mg tablet 25 mg PO DAILY Qty: 30 RF: 0 warfarin 5 mg tablet 5 mg PO DAILY Qty: 30 RF: 0 Lantus Solostar U-100 Insulin 100 unit/mL (3 mL) insulin pen 15 unit SUBCUT QPM Qty: 15 RF: 0 Novolog Flexpen U-100 Insulin 100 unit/mL (3 mL) insulin pen 3 unit SUBCUT TID Qty: 15 RF: 0 No Action nitroglycerin 0.4 mg tablet, sublingual 0.4 mg sublingual DIRECTED PRN (Reason: Chest Pain) RF: 0 losartan 100 mg tablet 100 mg PO DAILY RF: 0 carvedilol 6.25 mg Tablet 6.25 mg PO BID RF: 0 Lantus U-100 Insulin 100 unit/mL Solution 15 unit SUBCUT BEDTIME RF: 0 spironolactone 25 mg Tablet 25 mg PO DAILY RF: 0 isosorbide mononitrate 60 mg Tablet Extended Release 24 Hr 60 mg PO DAILY RF: 0 Novolog U-100 Insulin aspart 100 unit/mL Solution See Rx Instructions .ROUTE .COMPLEX RF: 0 warfarin 5 mg Tablet 5 mg PO . DIRECTED RF: 0 Lasix 20 mg Tablet 20 mg PO DAILY PRN (Reason: Edema) RF: 0 gabapentin 100 mg Capsule 200 mg PO QID RF: 0 albuterol sulfate 90 mcg/actuation HFA aerosol inhaler 2 inh INHALATION Q4H PRN (Reason: shortness of breath) Qty: 6.7 RF: 0 Discharge Orders: Discharge ED (Routine); Ordered 04/03/21 Ordered By: Vinny Abbott Referrals: Seth Brock MD [Physician] - 04/10/21 8:00 am (You have an appointment to establish primary care with Dr. Brock on April 10 at 08:00. Please take your discharge paperwork and medications with you to your appointment. ) Discharge Diet: Usual diet Discharge Activity: Resume usual activity Patient Instructions: Opioid Safety Activity Restrictions/Additional Instructions: Check INR at your primary care doctor or to urgent care clinic within the next 4 to 5 days return to the ER if you have further problems Coding Level of Care Code ED Master Deputy [employer] [address] Security for Evelyn Berg
[2021-04-03 14:04] VITALS: BP 184/122; PULSE 72; RESP 18; O2SAT 95
[2021-04-03 14:39] LABS: Protein Urine 1+ (Negative); Specific Gravity, Urine 1.015 (1.005-1.030); Urine Appearance Clear (CLEAR); Urine Color Yellow (Yellow); pH Urine 5 (5-7)
[2021-04-03 14:40] LABS: Add Urine Microscopic? YES; Bacteria Urine 1+ /hpf; Bilirubin Urine Neg (Negative); Blood Urine Neg (Negative); Glucose Urine UA 4+ (Normal); Ketones Urine Negative (Negative); Leukocyte Esterase Urine Negative (Negative); Nitrate Urine Negative (Negative); Squamous Epithelial Cell Urine 0-4 /hpf (0-5); Urobilinogen Urine Norm (Negative)
[2021-04-03 14:41] LABS: Add Urine Culture? No
[2021-04-03 14:55] LABS: Basophils # 0.1 10^3/uL (0.0-0.1); Basophils % 0.8 %; Eosinophils # 0.3 10^3/uL (0.0-0.8); Eosinophils % 2.7 %; Hematocrit 42.6 % (37.0-47.0); Hemoglobin 14.4 g/dL (11.5-15.3); Lymphocytes % 27.5 %; Mean Corpuscular HGB Conc 33.8 g/dL (30.0-36.0); Mean Corpuscular Hemoglobin 30.6 pg (28.0-34.0); Mean Corpuscular Volume 90.6 fL (81-99); Mean Platelet Volume 11.3 fL (7.4-10.4); Monocytes % 8.8 %; Neutrophils % 59.9 %; Nucleated Red Blood Cells % 0 %; Platelet Count 325 10^3/cmm (130-400); Red Cell Distribution Width 12.8 % (12.1-15.1); White Blood Count 10.9 10^3/uL (4.0-10.0)
[2021-04-03 15:04] VITALS: BP 184/122; PULSE 71; RESP 15; O2SAT 95
[2021-04-03 15:50] LABS: Troponin(5th) Baseline 15 ng/L (0-10)
[2021-04-03 15:59] LABS: Alanine Aminotransferase 15 U/L (0-33); Alkaline Phosphatase 77 IU/L (35-105); Anion Gap 15.1 (5-19); Aspartate Amino Transferase 12 U/L (0-32); Blood Urea Nitrogen 17 mg/dL (6-20); Carbon Dioxide 27 mmol/L (22-29); Chloride 98 mmol/L (98-107); Globulin 3.4 g/dL (1.3-4.6); Glomerular Filtration Rate 130.6 mL/min (90-130); Glucose 179 mg/dL (65-115); NT Pro B Type Natriuretic Pept 180 pg/mL (0-125); Osmolality Calculated 288 mOsm/kg (285-295); Potassium 4.1 mmol/L (3.5-5.1); Sodium 136 mmol/L (136-145); Total Bilirubin 0.2 mg/dL (0.15-1.2); Total Protein 7.4 g/dL (6.6-8.7)
[2021-04-03 16:00] VITALS: BP 184/122; PULSE 71; RESP 15; TEMP 37.1; O2SAT 95
[2021-04-03 16:01] LABS: INR 0.99 (0.8-1.2)
[2021-04-03 16:05] LABS: D Dimer 0.34 ug/mIFEU (0-0.59)
[2021-04-03 16:47] VITALS: BP 188/116; PULSE 73; RESP 18; O2SAT 96
== END 2021-04-03 16:48 | disposition home or self-care (01) ==
PROVIDERS: Family Medicine; Emergency Provider Family Medicine
DX: R07.89 Other chest pain (principal); I10 Essential (primary) hypertension; I25.2 Old myocardial infarction
CPT/HCPCS: 36415; 71045; 80053; 81001; 83880; 84484; 85025; 85378; 85610; 93005; 99283

== ENCOUNTER → 2021-04-10 08:41 | Outpatient (BNVA) | payer SELFPAY | PROVIDERS: PCP Family Medicine Adult Medicine; Visit Provider Family Medicine Adult Medicine | DX: Z09 Encounter for follow-up examination after completed treatment for conditions other than malignant neoplasm (principal); I51.3 Intracardiac thrombosis, not elsewhere classified; K02.9 Dental caries, unspecified; F43.10 Post-traumatic stress disorder, unspecified; F31.30 Bipolar disorder, current episode depressed, mild or moderate severity, unspecified; F41.8 Other specified anxiety disorders; I10 Essential (primary) hypertension; I25.10 Atherosclerotic heart disease of native coronary artery without angina pectoris; R07.89 Other chest pain; I50.9 Heart failure, unspecified; E11.9 Type 2 diabetes mellitus without complications; J44.9 Chronic obstructive pulmonary disease, unspecified; Z79.01 Long term (current) use of anticoagulants; Z87.19 Personal history of other diseases of the digestive system; Z90.49 Acquired absence of other specified parts of digestive tract; Z90.710 Acquired absence of both cervix and uterus; Z98.890 Other specified postprocedural states; Z98.891 History of uterine scar from previous surgery | CPT/HCPCS: 85610 ==

== ENCOUNTER → 2021-04-15 10:00 | Outpatient (BNVA) | payer MEDICAID, SELFPAY | PROVIDERS: PCP Family Medicine Adult Medicine; Visit Provider Family Medicine Adult Medicine | DX: E11.9 Type 2 diabetes mellitus without complications (principal); E66.01 Morbid (severe) obesity due to excess calories; Z68.41 Body mass index [BMI] 40.0-44.9, adult; Z79.01 Long term (current) use of anticoagulants; I51.3 Intracardiac thrombosis, not elsewhere classified; I10 Essential (primary) hypertension; F31.30 Bipolar disorder, current episode depressed, mild or moderate severity, unspecified | CPT/HCPCS: 80061; 80307; 83036; 85610 ==

== ENCOUNTER → 2021-04-21 07:44 | Outpatient (BNVA) | payer SELFPAY | PROVIDERS: PCP Family Medicine Adult Medicine; Visit Provider Family Medicine | DX: Z79.01 Long term (current) use of anticoagulants (principal) | CPT/HCPCS: 85610 ==

== ENCOUNTER → 2021-05-29 08:38 | Outpatient (BNVA) | payer MEDICAID, SELFPAY | PROVIDERS: PCP Family Medicine Adult Medicine; Visit Provider Psychiatry & Neurology Psychiatry | DX: F43.10 Post-traumatic stress disorder, unspecified (principal); F31.30 Bipolar disorder, current episode depressed, mild or moderate severity, unspecified; F19.94 Other psychoactive substance use, unspecified with psychoactive substance-induced mood disorder; F41.8 Other specified anxiety disorders; F15.20 Other stimulant dependence, uncomplicated; F12.10 Cannabis abuse, uncomplicated | CPT/HCPCS: 90792; 85610 ==

== ENCOUNTER → 2021-08-12 14:51 | Outpatient (BNVA) | payer MEDICAID, SELFPAY | PROVIDERS: PCP Family Medicine Adult Medicine; Visit Provider Family Medicine Adult Medicine | DX: E11.69 Type 2 diabetes mellitus with other specified complication (principal); I25.10 Atherosclerotic heart disease of native coronary artery without angina pectoris; E78.5 Hyperlipidemia, unspecified; I10 Essential (primary) hypertension; R07.1 Chest pain on breathing | CPT/HCPCS: 80053; 83036; 84484; 85025 ==

== ENCOUNTER 2021-10-15 15:44 | Emergency (ER) | payer MEDICAID, SELFPAY ==
[2021-10-15 16:28] VITALS: BP 144/89; PULSE 83; RESP 20; TEMP 36.7; O2SAT 94; BMI 43.6
--- NOTE | 2021-10-15 19:26 | ED_ITS ---
HPI - General Adult General: Chief complaint: Extremity Problem,Nontraumatic Stated complaint: R ARM PAIN Time Seen by Provider: 10/15/21 19:25 History of Present Illness: Ms Valdez is a 51-year-old lady with complex past medical history who presents the emergency department due to right wrist pain. She does not recall specific inciting event though approximately 3 weeks ago did have a pallet fall mostly leg and she thinks perhaps this may have caused her wrist pain. Since that time she is taking deep in her wrist and she has noticed some swelling. Symptoms have progressed to being to the point that she feels she cannot hold her phone without pain. Denies proximal pain or distal changes in CMS. Has tried [id number] medications without significant relief. Overall the course of symptoms has been worsening. Intensity is moderate. Denies similar episodes in the past. Denies signs of systemic illness. No other specific changes in health, exacerbating, relieving factors. Symptoms are not similar to prior cardiac chest pain. Onset (ago): week(s) Location: upper extremity Radiation: non-radiation Severity: moderate Quality: aching Pain Consistency: constant Exacerbating factors: movement (Supination/pronation) Associated symptoms: Deny fevers/chills or rash Review of Systems General: Reports: 10 or more systems reviewed and unremarkable except in HPI and below Skin/Breast: Denies: rash PFSH ED PFSH: Medical History Anxiety about health CAD (coronary artery disease) Cannabis abuse Chest pain made worse by breathing CHF (congestive heart failure) COPD (chronic obstructive pulmonary disease) Dental caries Diabetes Hyperlipidemia associated with type 2 diabetes mellitus Hypertension Injury of Lower Extremity Methamphetamine dependence Morbid obesity with BMI of 40.0-44.9, adult Mural thrombus of left ventricle Psychiatric care PTSD (post-traumatic stress disorder) Substance induced mood disorder Surgical History History of 2 sections History of umbilical hernia repair Hx of cholecystectomy Hx of hysterectomy Family History (Updated 09/07/21 @ 14:46 by Shawnee Lou, RN) Grandmother CAD (coronary artery disease) Dementia Lung disease Mother Hypertension Dementia Lung disease Stroke Grandmother Family history of premature coronary artery disease Family/Other Diabetes Father Lung disease Grandfather Stroke Denies family history of Clotting disorder Chronic kidney disease (CKD) Suicide Anesthesia complication Bleeding disorder Cancer Social History (Updated 09/07/21 @ 09:21 by Shawnee Lou RN) Smoking and tobacco status: never smoked Alcohol intake: current Alcohol intake frequency: holidays/special occasions only Last substance use date: 11/03/20 Adopted: No Lives independently: Yes Household members: children and none Housing: Apartment Marital status: / Number of children: 4 Highest education level completed: GED or Equivalent service: No Current occupational status: disabled Female Reproductive History: Date of last menstrual period: 10/06/06 Physical Exam Const: COMMON NORMALS: alert GENERAL APPEARANCE: cooperative and well developed HENMT: COMMON NORMALS: normocephalic and atraumatic HEAD & SCALP: normocephalic and atraumatic Eye: COMMON NORMALS: conjunctivae normal CONJUNCTIVA: Yes conjunctivae normal SCLERA: sclerae normal Neck/C-Spine: COMMON NORMALS: supple GENERAL: Yes trachea midline Resp: COMMON NORMALS: normal respiratory effort and clear to auscultation bilaterally EFFORT & INSPECTION: Yes able to speak in complete sentences AUSCULTATION: clear to auscultation bilaterally Cardio: COMMON NORMALS: regular rate and regular rhythm RATE: regular rate RHYTHM: regular rhythm GI: COMMON NORMALS: Soft to palpation PALPATION: Yes Soft to palpation and No Tenderness to palpation present (GI) PERCUSSION: normal to percussion Extremity: NARRATIVE EXTREMITY EXAM: Right wrist without obvious deformity, trace edema without palpable effusion. There is tenderness to pronation and supination however not to flexion and extension. No snuffbox tenderness. Distal CMS intact. GENERAL: No edema Neuro: COMMON NORMALS: moves all extremities SENSORIUM/ORIENTATION: Yes alert and No Orientation impaired Psych: COMMON NORMALS: mental status grossly normal and Normal thought process present THOUGHT PROCESS: Normal thought process present Course ED course: - Patient was seen and evaluated by me at bedside -Vital signs obtained. Patient afebrile and does not report history of fevers - Initial evaluation notable for exam as above - Analgesia ordered - Imaging notable for no acute finding on x-ray - Given negative x-ray I did order labs. Mild leukocytosis, mild elevation in ESR however CRP is negative. - Upon serial reexamination after treatment the patient was mildly improved - Based on patient history, evaluation, labs, and imaging as interpreted the most likely cause of the patient's condition is unclear. I discussed possible etiologies. Based on clinical exam and patient's description of systems in addition to ED evaluation I feel that etiology such as septic arthritis is very unlikely. I did discuss potential further evaluation with the patient however in discussion with risks and benefits patient comfortable with foregoing arthrocentesis at this time with strict return precautions and close follow-up with outpatient orthopedics. - The results of ED evaluation were discussed with the patient including prescriptions and/or symptomatic cares (if applicable) including appropriate and responsible use, followup plan, and return precautions. The patient verbalized understanding and felt safe for discharge. - Patient discharged in satisfactory condition. Note: Click bubbles or prepopulated harding in note writing are used for assistance with data collection and billing and are inherently more limited than narrative and other text portions of this note. Please use narrative for additional clinical history and defer to narrative/free test for any case of contradictory information. If information appears in only free text or click bubble it should be considered present or absent as reported. Please contact note ad writer for clarifications of clinical information or contradictory information. MDM is a brief summary, contradictory or erroneous seeming information should be clarified and full note should be reviewed. Vital Signs: Vital signs: Vital Signs Temperature 98.1 F 10/15/21 16:28 Pulse Rate 84 10/15/21 21:50 Respiratory Rate 18 10/15/21 21:50 Blood Pressure 144/89 10/15/21 16:28 Pulse Oximetry 94 10/15/21 21:50 MDM - General Adult Medical Decision Making 51-year-old lady presenting with wrist pain. Negative x-ray. Clinical history and physical exam not consistent with septic joint. Plan to treat patient outpatient setting and have follow-up with orthopedics. Patient comfortable with plan. Medical Records I reviewed the patient's medical records. Lab Data I reviewed the patient's lab results. : 10/15/21 20:00 Radiology Impressions Wrist X-Ray 10/15/21 19:32 IMPRESSION: No acute findings. Laboratory Results WBC 12.0 10^3/uL (4.0-10.0) H 10/15/21 20:00 RBC 5.35 10^6/uL (4.1-5.3) H 10/15/21 20:00 Hgb 16.1 g/dL (11.5-15.3) H 10/15/21 20:00 Hct 48.0 % (37.0-47.0) H 10/15/21 20:00 MCV 89.7 fl (81-99) 10/15/21 20:00 MCH 30.1 pg (28.0-34.0) 10/15/21 20:00 MCHC 33.5 g/dL (30.0-36.0) 10/15/21 20:00 RDW 12.7 % (12.1-15.1) 10/15/21 20:00 Plt Count 390 10^3/cmm (130-400) 10/15/21 20:00 MPV 11.3 fL (7.4-10.4) H 10/15/21 20:00 Neut % (Auto) 55.2 % 10/15/21 20:00 Lymph % (Auto) 31.7 % 10/15/21 20:00 Davie % (Auto) 8.2 % 10/15/21 20:00 Eos % (Auto) 3.9 % 10/15/21 20:00 Baso % (Auto) 0.7 % 10/15/21 20:00 Neut # (Auto) 6.63 10^3/uL (1.8-7.7) 10/15/21 20:00 Lymph # (Auto) 3.8 10^3/uL (0.8-4.8) 10/15/21 20:00 [place]ie # (Auto) 1.0 10^3/uL (0.2-0.9) H 10/15/21 20:00 Eos # (Auto) 0.5 10^3/uL (0.0-0.8) 10/15/21 20:00 Baso # (Auto) 0.1 10^3/uL (0.0-0.1) 10/15/21 20:00 Nucleated RBC % (auto) 0 % 10/15/21 20: Nucleated RBCs # 0.0 /100WBC 10/15/21 20:00 ESR 45 mm/hr (0-15) H 10/15/21 20:00 C-Reactive Protein 3.9 mg/L (0.0-4.9) 10/15/21 20:00 Discharge Plan Discharge Patient Disposition: Home Clinical Impression: Acute wrist pain Condition: Stable Prescriptions: New oxycodone 5 mg tablet 5 mg PO Q4H PRN (Reason: pain) Qty: 14 0RF No Action Eliquis 5 mg tablet 5 mg PO BID 30 Days Qty: 60 5RF Rx Instructions: 340 B medication Novolog Flexpen U-100 Insulin 100 unit/mL (3 mL) insulin pen 3 unit SUBCUT TID Qty: 15 5RF Rx Instructions: PER SLIDING SCALE Lantus Solostar U-100 Insulin 100 unit/mL (3 mL) insulin pen 15 unit SUBCUT QPM Qty: 15 5RF losartan 100 mg tablet 100 mg PO DAILY Qty: 30 5RF amoxicillin 500 mg tablet 500 mg PO BID Qty: 30 1RF atorvastatin 40 mg tablet 40 mg PO DAILY Qty: 30 5RF Rx Instructions: 340 B meds metformin 500 mg tablet 500 mg PO BID Qty: 60 5RF Rx Instructions: 340 B meds carvedilol 25 mg tablet 25 mg PO BID 90 Days Qty: 180 3RF Rx Instructions: must administer with a meal/food gabapentin 100 mg capsule 200 mg PO DAILY Qty: 60 5RF bupropion HCl 150 mg tablet sustained-release 12 hr 150 mg PO QAM Qty: 30 5RF Rx Instructions: 340 B medication (DME) blood-glucose meter [Accu-Chek Guide Glucose Meter] Misc See Rx Instructions .Route Qty: 1 0RF Rx Instructions: As directed, test blood sugar Twice a day. (DME) lancets [BD Ultra Fine Lancets] 33 gauge misc See Rx Instructions .Route Qty: 100 0RF Rx Instructions: As directed check blood sugar twice a day. (DME) blood pressure monitor [Blood Pressure Kit] Kit See Rx Instructions .Route Qty: 1 0RF Rx Instructions: As directed, check blood pressure 3 times a day, prn. Lasix 20 mg tablet 20 mg PO DAILY Qty: 30 5RF Rx Instructions: 340 B meds celecoxib 200 mg capsule See Rx Instructions .ROUTE .COMPLEX 30 Days Qty: 60 0RF Dose Instruction: TAKE 1 CAPSULE BY MOUTH TWICE DAILY FOR LEFT LEG PAIN Rx Instructions: TAKE 1 CAPSULE BY MOUTH TWICE DAILY FOR LEFT LEG PAIN spironolactone 25 mg tablet See Rx Instructions .ROUTE .COMPLEX 90 Days Qty: 90 1RF Dose Instruction: TAKE 1 TABLET BY MOUTH EVERY DAY Rx Instructions: TAKE 1 TABLET BY MOUTH EVERY DAY isosorbide mononitrate 60 mg tablet extended release 24 hr See Rx Instructions .ROUTE .COMPLEX 90 Days Qty: 90 1RF Dose Instruction: TAKE 1 TABLET BY MOUTH EVERY DAY Rx Instructions: TAKE 1 TABLET BY MOUTH EVERY DAY albuterol sulfate [ProAir HFA] 90 mcg/actuation HFA aerosol inhaler See Rx Instructions .ROUTE .COMPLEX Qty: 8.5 4RF Dose Instruction: USE 2 INHALATIONS INTO LUNGS EVERY FOUR HOURS NEEDED FOR SHORTNESS OF BREATH OR WHEEZING Rx Instructions: USE 2 INHALATIONS INTO LUNGS EVERY FOUR HOURS NEEDED FOR SHORTNESS OF BREATH OR WHEEZING (DME) OneTouch Ultra Test Strip See Rx Instructions .ROUTE .COMPLEX Qty: 100 0RF Dose Instruction: USE DIRECTED CHECK BLOOD SUGAR TWICE DAILY Rx Instructions: USE DIRECTED CHECK BLOOD SUGAR TWICE DAILY nitroglycerin 0.4 mg tablet, sublingual 0.4 mg sublingual DIRECTED PRN (Reason: Chest Pain) 0RF Discharge Orders: Discharge ED (Routine); Ordered 10/15/21 Ordered By: Jabari Montoya Referrals: Seth Brock MD [Primary Care Provider] - Discharge Diet: Usual diet Discharge Activity: Limit activity as instructed Patient Instructions: Arthralgia (ED), Opioid Safety Activity Restrictions/Additional Instructions: Thank you for visiting the emergency department. You were seen and evaluated for wrist pain. The exact cause of the symptoms is unclear. I recommend follow-up with orthopedics. Return to the emergency department for fevers, wrist swelling, uncontrolled pain, or anything else that you are concerned about and feel needs emergency department evaluation. Coding Level of Care Code ED Cardiovascular Physician Assistant for Evelyn Berg
--- NOTE | 2021-10-15 19:32 | XRR_ITS ---
PROCEDURE INFORMATION: Exam: XR Right Wrist Exam date and time: 10/15/2021 7:32 PM Age: 51 years old Clinical indication: Pain; Wrist; Right; Additional info: Pain, swelling, injury 3 weeks ago TECHNIQUE: Imaging protocol: XR Right wrist. Views: 3 or more views. COMPARISON: No relevant prior studies available. FINDINGS: Bones/joints: Normal. Soft tissues: Normal. XR/XR wrist RT min 3V* [id number] IMPRESSION: No acute findings.
[2021-10-15 20:13] VITALS: RESP 18
[2021-10-15] MEDS: oxyCODONE 5 mg IR Tab/Cap PO (20:13)
[2021-10-15 20:20] LABS: Basophils # 0.1 10^3/uL (0.0-0.1); Basophils % 0.7 %; Eosinophils # 0.5 10^3/uL (0.0-0.8); Eosinophils % 3.9 %; Hemoglobin 16.1 g/dL (11.5-15.3); Lymphocytes # 3.8 10^3/uL (0.8-4.8); Lymphocytes % 31.7 %; Mean Corpuscular HGB Conc 33.5 g/dL (30.0-36.0); Mean Corpuscular Hemoglobin 30.1 pg (28.0-34.0); Mean Corpuscular Volume 89.7 fl (81-99); Mean Platelet Volume 11.3 fL (7.4-10.4); Monocytes % 8.2 %; Neutrophils # 6.63 10^3/uL (1.8-7.7); Neutrophils % 55.2 %; Nucleated Red Blood Cells % 0 %; Platelet Count 390 10^3/cmm (130-400); Red Blood Count 5.35 10^6/uL (4.1-5.3); Red Cell Distribution Width 12.7 % (12.1-15.1)
[2021-10-15 20:46] LABS: C Reactive Protein 3.9 mg/L (0.0-4.9)
[2021-10-15 21:22] LABS: Erythrocyte Sedimentation Rate 45 mm/hr (0-15)
[2021-10-15 21:50] VITALS: PULSE 84; RESP 18; O2SAT 94
--- NOTE | 2021-10-19 09:40 | DCPLANNER ---
Addendum entered by Sari Otto 10/30/21 21:55: Patient had a follow up appointment scheduled for 10.27.[address] Oliver at ortho - patient did attend appointment. Original Note: ux design manager had message to schedule a follow up appointment for patient with ortho. ux design manager called the ortho clinic, spoke with Ingrid, gave clinic patients information. ux design manager was told that patients information would be printed and reviewed. Clinic will call patient with appointment information.
== END 2021-10-15 21:51 | disposition home or self-care (01) ==
PROVIDERS: Emergency Provider Emergency Medicine; PCP Family Medicine Adult Medicine
DX: M25.531 Pain in right wrist (principal); Z79.01 Long term (current) use of anticoagulants; Z79.84 Long term (current) use of oral hypoglycemic drugs; Z79.4 Long term (current) use of insulin; I25.10 Atherosclerotic heart disease of native coronary artery without angina pectoris; I11.0 Hypertensive heart disease with heart failure; I50.9 Heart failure, unspecified; J44.9 Chronic obstructive pulmonary disease, unspecified; E11.9 Type 2 diabetes mellitus without complications; E78.5 Hyperlipidemia, unspecified
CPT/HCPCS: 73110; 85025; 85651; 86140; 99283

== ENCOUNTER 2021-10-21 06:30 | Outpatient (CLI) | payer MEDICAID, SELFPAY ==
--- NOTE | 2021-10-21 07:15 | USCV_ITS ---
Felicia Valdez Age: 51 Gender: F : 1970 Exam Date: 10/21/2021 06:57 Ordering Phys: Andressa Jason MD ([email or web address]) Technologist: Exam Location: [facility] [place]: chest pain BP: 190 / 100 HR: 82 Rhythm: Sinus Technical Quality: Adequate MEASUREMENTS (Male / Female) Normal Values 2D ECHO LV Diastolic Diameter PLAX 3.6 cm 4.2 - 5.9 / 3.9 - 5.3 cm LV Systolic Diameter PLAX 2.6 cm IVS Diastolic Thickness 1.7 cm 0.6 - 1.0 / 0.6 - 0.9 cm IVS Systolic Thickness 1.9 cm LVPW Diastolic Thickness 1.6 cm 0.6 - 1.0 / 0.6 - 0.9 cm LVPW Systolic Thickness 1.7 cm LVOT Diameter 2.0 cm LV Ejection Fraction 2D Teich 47.8 % LV Ejection Fraction MOD 2C 65.0 % LV Ejection Fraction 2C AL 66.6 % LA Diameter 4.1 cm Aorta at Sinotubular Diameter 3.0 cm M-MODE Aortic Annulus Diameter 3.5 cm LA Ao Ratio MM 1.2 MV E Point Septal Separation 0.8 cm DOPPLER AV Peak Velocity 162.0 cm/s LVOT Peak Velocity 94.0 cm/s AV Area Cont Eq vti 1.8 cm squared AV Area Cont Eq pk 1.9 cm squared MV Area PHT 5.0 cm squared Mitral E to A Ratio 6.7 MV E' Velocity 71.0 cm/s Mitral E to MV E' Ratio 44.9 Mitral E to LV E' Lateral Ratio 51.6 Mitral E to LV E' Septal Ratio 41.0 TR Peak Velocity 124.0 cm/s TR Peak Gradient 6.2 mmHg TV Peak E Velocity 120.0 cm/s Right Atrial Pressure 3.0 mmHg Pulmonary Artery Systolic Pressu 9.2 mmHg PV Peak Velocity 104.0 cm/s RV Acceleration Time 0.2 s FINDINGS Left Ventricle Normal left ventricular size. LV systolic function is normal with EF of 55-60%. No regional wall motion abnormalities. Right Ventricle The right ventricle is normal in size and function. Right Atrium The right atrium is normal in size. Left Atrium The left atrium is normal in size. Mitral Valve Mild to moderate mitral annular calcification without significant stenosis or prolapse. There is no mitral regurgitation. Aortic Valve Structurally normal aortic valve without significant sclerosis or stenosis. There is no aortic regurgitation. Tricuspid Valve Structurally normal tricuspid valve without significant stenosis or regurgitation. Insufficient TR jet to calculate RVSP Pulmonic Valve Grossly normal Pericardium Normal pericardium without effusion. Aorta Normal ascending aorta dimension. CONCLUSIONS LV systolic function is normal with EF of 55-60% Mild to moderate mitral annular calcification No signficant valvular heart disease noted Compared to prior echocardiogram from 03/30/2019, no significant changes are noted Guero Brown MD (Electronically Signed) Final Date: 27 October 2021 10:04 S
== END 2021-10-21 06:31 | disposition home or self-care (01) ==
LOC: RAD 06:32
PROVIDERS: PCP Family Medicine Adult Medicine; Visit Provider Internal Medicine Cardiovascular Disease
DX: I42.8 Other cardiomyopathies (principal); R06.00 Dyspnea, unspecified
CPT/HCPCS: 93306

== ENCOUNTER → 2021-10-27 15:22 | Outpatient (BNVA) | payer MEDICAID, SELFPAY | PROVIDERS: PCP Family Medicine Adult Medicine; Referring Provider Family Medicine Adult Medicine; Visit Provider Orthopaedic Surgery | DX: S62.109A Fracture of unspecified carpal bone, unspecified wrist, initial encounter for closed fracture (principal); X58.XXXA Exposure to other specified factors, initial encounter | CPT/HCPCS: 73110 ==

== ENCOUNTER → 2021-11-04 14:51 | Outpatient (BNVA) | payer MEDICAID, SELFPAY | PROVIDERS: PCP Family Medicine Adult Medicine; Visit Provider Internal Medicine Cardiovascular Disease | DX: R07.1 Chest pain on breathing (principal); I42.8 Other cardiomyopathies; R00.0 Tachycardia, unspecified | CPT/HCPCS: 93270; 99214 ==

== ENCOUNTER 2021-11-24 18:58 | Emergency (ER) | payer MEDICAID, SELFPAY ==
--- NOTE | 2021-11-24 19:07 | XRR_ITS ---
PROCEDURE INFORMATION: Exam: XR Chest Exam date and time: 11/24/2021 6:29 PM Age: 51 years old Clinical indication: Other: Syncope TECHNIQUE: Imaging protocol: XR of the chest. Views: 1 view. COMPARISON: CR XR chest 1V portable [id number] 04/03/2021 12:52 PM FINDINGS: The lungs are clear of infiltrate. There are no pleural effusions or pneumothorax. The heart size and pulmonary vascularity are normal. XR/XR chest 1V portable [id number] IMPRESSION: No active disease.
--- NOTE | 2021-11-24 19:07 | ECG_ITS ---
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 Measurements Intervals [place] Rate: 74 P: 62 AL: 213 QRS: -69 QRSD: 105 T: 106 QT: 414 QTc: 462 Interpretive Statements SINUS RHYTHM WITH FIRST DEGREE AV BLOCK LEFT AXIS DEVIATION [QRS AXIS < -30] INCOMPLETE RIGHT BUNDLE BRANCH BLOCK [90+ ms QRS DURATION, TERMINAL R IN V1/V2, 40+ ms S IN I/aVL/V4/V5/V6] MODERATE T-WAVE ABNORMALITY, CONSIDER LATERAL ISCHEMIA [-0.1+ mV T-WAVE IN I/aVL/V5/V6] Compared to ECG 04/03/2021 12:29:21 First degree AV block now present Myocardial infarct finding no longer present T-wave abnormality still present Possible ischemia still present Electronically Signed On 11-25-2021 17:52:54 CDT by Priscilla Cano M.D. [id number]
[2021-11-24 19:08] VITALS: BP 152/97; PULSE 80; RESP 18; TEMP 36.7; O2SAT 93; BMI 36.8
--- NOTE | 2021-11-24 19:26 | W.ED.DIZZY ---
HPI - Dizziness General: Chief Complaint: Dizziness Stated Complaint: blurry vision, feels like passing out Time Seen by Provider: 11/24/21 19:26 History of Present Illness: HPI Narrative: Ms. Valdez is a 51-year-old lady with complex past medical history significant for hypertension, hyperlipidemia, diabetes, cardiomyopathy, CAD, obesity who presents to the emergency department due to visual disturbance and dizziness. She reports intermittent blurry vision which typically improves with blinking which has become more frequent over the past month. Today it has been near constant. She endorses bilateral nature of symptoms. No pain or floaters associated with this. Around noon, she had sudden onset of dizziness which she describes as spinning. This is worse with head movement however at times persists even at rest She feels unsteady with her gait. She denies any other focal neurologic symptoms or sensory changes with the exception of a few centimeter area of numbness on her left lip upper. She denies similar episodes in the past. Intensity symptoms is moderate to severe. Course has persisted. No other infectious symptoms, neck stiffness, or any other changes that she can think of. She does have chronic right wrist pain which has previously been evaluated. No other specific changes in health, exacerbating, or alleviating factors identified. Onset (ago): hour(s) Timing: sudden onset Severity: severe Description: sense of movement and room spinning Exacerbating factors: movement/ambulation Relieving factors: keeping eyes closed Associated symptoms: Reports headache(s) and other Review of Systems General: Reports: 10 or more systems reviewed and unremarkable except in HPI and below Neuro: Reports: headache(s) ON LICENSE OF [facility] ED PFSH: Medical History Anxiety about health CAD (coronary artery disease) SPG 03/2021 Cath with mild 30% LAD Cannabis abuse Chest pain made worse by breathing CHF (congestive heart failure) Echo SPG 04/07/2021 45-50% LVEF Dental caries Diabetes Hyperlipidemia associated with type 2 diabetes mellitus Hypertension Injury of Lower Extremity Methamphetamine dependence Morbid obesity with BMI of 40.0-44.9, adult Mural thrombus of left ventricle Not present on 04/07/2021 Echo SPG Psychiatric care PTSD (post-traumatic stress disorder) Substance induced mood disorder Cannabis and Methamphetamine 05/31/2021 Dr Perdue Surgical History History of 2 sections History of umbilical hernia repair Hx of cholecystectomy Hx of hysterectomy Family History Grandmother CAD (coronary artery disease) Dementia Lung disease Mother Hypertension Dementia Lung disease Stroke Grandmother Family history of premature coronary artery disease Family/Other Diabetes Father Lung disease Grandfather Stroke Denies family history of Clotting disorder Chronic kidney disease (CKD) Suicide Anesthesia complication Bleeding disorder Cancer Social History Smoking and tobacco status: never smoked Alcohol intake: current Alcohol intake frequency: holidays/special occasions only Last substance use date: 11/03/20 Adopted: No Lives independently: Yes Household members: children and none Housing: Apartment Marital status: / Number of children: 4 Highest education level completed: GED or Equivalent service: No Current occupational status: disabled Female Reproductive History: Date of last menstrual period: 10/06/06 Physical Exam Const: COMMON NORMALS: patient oriented x3 and alert GENERAL APPEARANCE: cooperative and well developed HENMT: COMMON NORMALS: normocephalic and atraumatic HEAD & SCALP: normocephalic and atraumatic THROAT: posterior oropharynx normal Eye: COMMON NORMALS: conjunctivae normal CONJUNCTIVA: Yes conjunctivae normal SCLERA: sclerae normal Neck/C-Spine: COMMON NORMALS: full ROM, supple and no meningeal signs GENERAL: Yes trachea midline Resp: COMMON NORMALS: normal respiratory effort EFFORT & INSPECTION: Yes able to speak in complete sentences Cardio: COMMON NORMALS: regular rate and regular rhythm RATE: regular rate RHYTHM: regular rhythm GI: COMMON NORMALS: Soft to palpation PALPATION: Yes Soft to palpation and No Tenderness to palpation present (GI) PERCUSSION: normal to percussion Extremity: GENERAL: Yes normal exam except as noted and No edema Neuro: COMMON NORMALS: patient oriented x3, CN's II-XII intact bilaterally (far left gaze right beating nystagmus), moves all extremities, no focal motor deficits and no sensory deficits noted SENSORIUM/ORIENTATION: Yes alert and No Orientation impaired MENINGEAL SIGNS: Yes no meningeal signs GAIT: Yes Staggering gait present and Yes Wide-based gait present Psych: COMMON NORMALS: mental status grossly normal and Normal thought process present THOUGHT PROCESS: Normal thought process present Course ED course: - Patient was seen and evaluated by me at bedside - Patient placed on cardiac monitors, IV access obtained - Initial evaluation notable for exam as above, unsteady gait and nystagmus present though neurologic exam is not entirely consistent with purely peripheral cause - Labs and xrays personally interpreted by me -Fluids and meclizine ordered - Labs notable for mild leukocytosis. Mild dehydration on metabolic panel. Troponin negative. - Imaging notable for no acute hemorrhage or mass noted on plain head CT. CTA with abnormal vasculature. - Upon serial reexamination after treatment the patient was similar with basically no improvement in fluids and meclizine. This patient with abnormal CTA imaging wants further imaging and therefore MRI was ordered to evaluate for acute stroke. Currently there are no beds available in the hospital and thus emergent evaluation is warranted. - Based on patient history, evaluation, and testing as interpreted the most likely cause of the patient's condition is dizziness and visual disturbance, mild central in nature. -Patient did have very mild improvement with additional symptom treatment. - The results of ED evaluation were discussed with the patient including prescriptions and/or symptomatic cares (if applicable) including appropriate and responsible use, followup plan, and return precautions. The patient verbalized understanding and felt safe for discharge. - Patient discharged in satisfactory condition. Note: Click bubbles or prepopulated harding in note writing are used for assistance with data collection and billing and are inherently more limited than narrative and other text portions of this note. Please use narrative for additional clinical history and defer to narrative/free test for any case of contradictory information. If information appears in only free text or click bubble it should be considered present or absent as reported. Please contact note customs entry writer for clarifications of clinical information or contradictory information. MDM is a brief summary, contradictory or erroneous seeming information should be clarified and full note should be reviewed. Vital Signs: Vital signs: Vital Signs Temperature 98.0 F 11/24/21 19:08 Pulse Rate 71 11/24/21 23:42 Respiratory Rate 18 11/24/21 23:42 Blood Pressure 142/83 11/24/21 23:42 Pulse Oximetry 96 11/24/21 23:42 MDM - Dizziness Medical Decision Making 51-year-old lady with complex past medical history presenting with 1 month of intermittent visual disturbance now constant with dizziness. Neurologic exam favors peripheral cause however elements of history make this less certain. CT imaging with abnormal cerebrovascular. Patient had no significant improvement with meclizine and fluids and therefore, in conjugation with clinical history and exam, MRI wanted. MRI negative for acute cause of symptoms. Satisfactory for outpatient treatment. Patient will be referred for vestibular therapy. Medical Records I reviewed the patient's medical records. Lab Data I reviewed the patient's lab results. : 11/24/21 20:26 11/24/21 20:52 Radiology Impressions Chest X-Ray 11/24/21 19:07 IMPRESSION: No active disease. Head CT 11/24/21 19:42 IMPRESSION: No evidence for acute infarct, mass or hemorrhage. Head/Neck CTA 11/24/21 19:42 IMPRESSION: 1. Mild atherosclerotic disease. No occlusion, thrombosis, stenosis, extravasation, dissection, or aneurysm. 2. Cavitary and periodontal disease involving multiple maxillary and mandibular teeth. 3. The anterior communicating artery and posterior communicating arteries are not visualized. The posterior communicating arteries may be congenitally absent, or may be too small for the resolution capabilities of this study. 4. Variant arterial anatomy as described in the report. 5. Incidental/nonacute findings are listed in the report. IMPRESSION: 1. Mild atherosclerotic disease. No occlusion, thrombosis, stenosis, extravasation, dissection, or aneurysm. 2. Nonspecific cervical lymphadenopathy, which could be reactive in nature. Followup imaging recommended to insure stability/resolution however. 3. Incidental/nonacute findings are listed in the report. REFERENCES: NASCET CRITERIA. The degree of internal carotid artery stenosis is based on NASCET criteria. Normal is no stenosis. Mild is less than 50% stenosis. Moderate is 50-69% stenosis. Severe is 70% to 99% stenosis. Total occlusion is no detectable patent lumen. Head MRI 11/24/21 21:43 IMPRESSION: 1. No acute abnormality of the brain. 2. Mild mucoperiosteal thickening in the the left maxillary sinus. Laboratory Results WBC 10.3 10^3/uL (4.0-10.0) H 11/24/21 20:26 RBC 4.69 10^6/uL (4.1-5.3) 11/24/21 20:26 Hgb 13.9 g/dL (11.5-15.3) 11/24/21 20: Hct 41.9 % (37.0-47.0) 11/24/21: MCV 89.3 fl (81-99) 11/24/21: MCH 29.6 pg (28.0-34.0) 11/24/21 MCHC 33.2 g/dL (30.0-36.0) 11/24/21: RDW 13.5 % (12.1-15.1) 11/24/21: Plt Count 288 10^3/cmm (130-400) 11/24/21: MPV 11.4 fL (7.4-10.4) H 11/24/21: Neut % (Auto) 64.7 % 11/24/21: Lymph % (Auto) 23.5 % 11/24/21: Dick[place] % (Auto) 7.4 % 11/24/21: Eos % (Auto) 3.4 % 11/24/21: Baso % (Auto) 0.8 % 11/24/21 Neut # (Auto) 6.64 10^3/uL (1.8-7.7) 11/24/21: Lymph # (Auto) 2.4 10^3/uL (0.8-4.8) 11/24/21: Dickens # (Auto) 0.8 10^3/uL (0.2-0.9) 11/24/21: Eos # (Auto) 0.4 10^3/uL (0.0-0.8) 11/24/21: Baso # (Auto) 0.1 10^3/uL (0.0-0.1) 11/24/21 Nucleated RBC % (auto) 0 % 11/24/21 Nucleated RBCs # 0.0 /100WBC 11/24/21 20: Sodium 134 mmol/L (136-145) L 11/24/21 20: Potassium 4.2 mmol/L (3.5-5.1) 11/24/21: Chloride 98 mmol/L (98-107) 11/24/21 20:52 Carbon Dioxide 23 mmol/L (22-29) 11/24/21 20:52 Anion Gap 17.2 (5-19) 11/24/21 20:52 BUN 24 mg/dL (6-20) H 11/24/21 20:52 Creatinine 0.7 mg/dL (0.5-0.9) 11/24/21 20:52 GFR Calculation 88.6 mL/min (90-130) L 11/24/21 20:52 Glucose 259 mg/dL (65-115) H 11/24/21 20:52 Calculated Osmolality 291 mOsm/kg (285-295) 11/24/21 20:52 Calcium 9.1 mg/dL (8.5-10.5) 11/24/21 20:52 Total Bilirubin 0.3 mg/dL (0.15-1.2) 11/24/21 20:52 AST 21 U/L (0-32) 11/24/21 20:52 ALT 29 U/L (0-33) 11/24/21 20:52 Alkaline Phosphatase 83 IU/L (35-105) 11/24/21 20:52 Troponin T Baseline 19 ng/L (0-10) H 11/24/21 20:26 Troponin T 120 Minute 19.10 ng/L (0-10) H 11/24/21 22:41 Delta Troponin T 0.10 ABS# (0-10) 11/24/21 22:41 Total Protein 7.2 g/dL (6.6-8.7) 11/24/21 20:52 Albumin 3.5 g/dL (3.5-5.2) 11/24/21 20:52 Globulin 3.7 g/dL (1.3-4.6) 11/24/21 20:52 TSH 2.34 uIU/mL (0.27-4.20) 11/24/21 20:52 EKG Data EKG 1: I personally reviewed and interpreted this EKG as follows: EKG interpretation date: 11/24/21 EKG interpretation time: 19:20 Interpretation: Twelve-lead EKG shows a regular rhythm at a rate of 74 NM interval 213, NM interval 105, QRS duration 462 Left axis deviation Interpretation: Sinus rhythm. First-degree AV block. [place] deviation. Nonspecific ST segment abnormalities. Discharge Plan Discharge Patient Disposition: Home Clinical Impression: Blurred vision, bilateral, Dizziness Condition: Stable Prescriptions: New meclizine 25 mg tablet 12.5 mg PO TID PRN (Reason: dizziness) Qty: 10 0RF No Action Eliquis 5 mg tablet 5 mg PO BID 30 Days Qty: 60 5RF Rx Instructions: 340 B medication losartan 100 mg tablet 100 mg PO DAILY Qty: 30 5RF amoxicillin 500 mg tablet 500 mg PO BID Qty: 30 1RF atorvastatin 40 mg tablet 40 mg PO DAILY Qty: 30 5RF Rx Instructions: 340 B meds metformin 500 mg tablet 500 mg PO BID Qty: 60 5RF Rx Instructions: 340 B meds carvedilol 25 mg tablet 25 mg PO BID 90 Days Qty: 180 3RF Rx Instructions: must administer with a meal/food gabapentin 100 mg capsule 200 mg PO DAILY Qty: 60 5RF bupropion HCl 150 mg tablet sustained-release 12 hr 150 mg PO QAM Qty: 30 5RF Rx Instructions: 340 B medication (DME) blood-glucose meter [Accu-Chek Guide Glucose Meter] Misc See Rx Instructions .Route Qty: 1 0RF Rx Instructions: As directed, test blood sugar Twice a day. (DME) lancets [BD Ultra Fine Lancets] 33 gauge misc See Rx Instructions .Route Qty: 100 0RF Rx Instructions: As directed check blood sugar twice a day. celecoxib 200 mg capsule 200 mg PO DAILY 30 Days Qty: 30 0RF Rx Instructions: 200 mg PO twice a day; (DME) blood pressure monitor [Blood Pressure Kit] Kit See Rx Instructions .Route Qty: 1 0RF Rx Instructions: As directed, check blood pressure 3 times a day, prn. Lasix 20 mg tablet 20 mg PO DAILY Qty: 30 5RF Rx Instructions: 340 B meds spironolactone 25 mg tablet See Rx Instructions .ROUTE .COMPLEX 90 Days Qty: 90 1RF Dose Instruction: TAKE 1 TABLET BY MOUTH EVERY DAY Rx Instructions: TAKE 1 TABLET BY MOUTH EVERY DAY isosorbide mononitrate 60 mg tablet extended release 24 hr See Rx Instructions .ROUTE .COMPLEX 90 Days Qty: 90 1RF Dose Instruction: TAKE 1 TABLET BY MOUTH EVERY DAY Rx Instructions: TAKE 1 TABLET BY MOUTH EVERY DAY albuterol sulfate [ProAir HFA] 90 mcg/actuation HFA aerosol inhaler See Rx Instructions .ROUTE .COMPLEX Qty: 8.5 4RF Dose Instruction: USE 2 INHALATIONS INTO LUNGS EVERY FOUR HOURS NEEDED FOR SHORTNESS OF BREATH OR WHEEZING Rx Instructions: USE 2 INHALATIONS INTO LUNGS EVERY FOUR HOURS NEEDED FOR SHORTNESS OF BREATH OR WHEEZING (DME) OneTouch Ultra Test Strip See Rx Instructions .ROUTE .COMPLEX Qty: 100 0RF Dose Instruction: USE DIRECTED CHECK BLOOD SUGAR TWICE DAILY Rx Instructions: USE DIRECTED CHECK BLOOD SUGAR TWICE DAILY Lantus Solostar U-100 Insulin 100 unit/mL (3 mL) insulin pen See Rx Instructions .ROUTE .COMPLEX Qty: 15 1RF Dose Instruction: INJECT 15 UNITS SUBCUTANEOUSLY EVERY EVENING Rx Instructions: INJECT 15 UNITS SUBCUTANEOUSLY EVERY EVENING Novolog Flexpen U-100 Insulin 100 unit/mL (3 mL) insulin pen See Rx Instructions .ROUTE .COMPLEX Qty: 15 1RF Dose Instruction: INJECT 3 UNITS SUBCUTANEOUSLY THREE TIMES DAILY PER SLIDING SCALE Rx Instructions: INJECT 3 UNITS SUBCUTANEOUSLY THREE TIMES DAILY PER SLIDING SCALE nitroglycerin 0.4 mg tablet, sublingual 0.4 mg sublingual DIRECTED PRN (Reason: Chest Pain) 0RF oxycodone 5 mg tablet 5 mg PO Q4H PRN (Reason: pain) Qty: 14 0RF Discharge Orders: Discharge ED (Routine); Ordered 11/24/21 Ordered By: Jabari Montoya Referrals: Seth Brock MD [Primary Care Provider] - Discharge Diet: Usual diet Discharge Activity: Increase activity as tolerated Patient Instructions: Vertigo (ED), Blurred Vision (ED), Dizziness (ED), Opioid Safety Activity Restrictions/Additional Instructions: Thank you for visiting the emergency department. You were seen and evaluated for blurry vision and dizziness. The exact cause of symptoms is unclear. You do have abnormal blood vessel imaging on CT however no evidence of stroke. Please followup with your PCP and an eye doctor. Make sure to continue you medications especially eliquis and your atorvastatin. I will messege case management for vestibular therapy referral if symptoms continue and neurology followup. Please return for any new neurological symptoms or anything else that you are concerned about and feel needs ED evaluation. Coding Level of Care Code ED Patrol Supervisor for Evelyn Berg
--- NOTE | 2021-11-24 19:42 | CTR_ITS ---
PROCEDURE INFORMATION: Exam: CT Head Without Contrast Exam date and time: 11/24/2021 8:00 PM Age: 51 years old Clinical indication: Patient HX: Blurry vision and dizziness; Additional info: Dizzy, visual disturbance TECHNIQUE: Imaging protocol: Computed tomography of the head without contrast. Radiation optimization: All CT scans at this facility use at least one of these dose optimization techniques: automated exposure control; mA and/or kV adjustment per patient size (includes targeted exams where dose is matched to clinical indication); or iterative reconstruction. COMPARISON: MRI Head w/wo* [id number] 03/01/2019 12:18 PM RADIATION DOSE METRICS: Total DLP (mGy-cm): 936.06 FINDINGS: The ventricles, sulci and basilar cisterns appear normal for the patient's stated age. There is no evidence of mass, hemorrhage or infarct. No extra-axial fluid collections are identified. There is no midline shift. There is no evidence of fracture. The visualized paranasal sinuses are well-aerated. There is atherosclerotic change of the cavernous carotid arteries. CT/CT head wo con* [id number] IMPRESSION: No evidence for acute infarct, mass or hemorrhage.
--- NOTE | 2021-11-24 19:42 | CTR_ITS ---
PROCEDURE INFORMATION: Exam: CT Angiography Head With Contrast, Arteriography Exam date and time: 11/24/2021 8:04 PM Age: 51 years old Clinical indication: Dizziness and giddiness; Additional info: Dizzy TECHNIQUE: Imaging protocol: Computed tomography angiography of the head with contrast. Exam focused on the arteries. 3D rendering (Not supervised by radiologist): MIP and/or 3D reconstructed images were created by the technologist. Radiation optimization: All CT scans at this facility use at least one of these dose optimization techniques: automated exposure control; mA and/or kV adjustment per patient size (includes targeted exams where dose is matched to clinical indication); or iterative reconstruction. Contrast material: OMNI 350; Contrast volume: 95 ml; Contrast route: INTRAVENOUS (IV); COMPARISON: CT head wo con* [id number] 11/24/2021 8:00 PM RADIATION DOSE METRICS: Total DLP (mGy-cm): 2711.68 FINDINGS: ANTERIOR CIRCULATION: Right internal carotid artery: Mild calcified plaque at the cavernous and supraclinoid segments. No occlusion, thrombosis, stenosis, extravasation, dissection, or aneurysm. Right middle cerebral artery: Unremarkable. No occlusion, thrombosis, stenosis, extravasation, dissection, or aneurysm. Right anterior cerebral artery: Unremarkable. No occlusion, thrombosis, stenosis, extravasation, dissection, or aneurysm. Anterior communicating artery: The anterior communicating artery is not visualized. The anterior communicating artery may be congenitally absent, or may be too small for the resolution capabilities of this study. Left internal carotid artery: Mild calcified and noncalcified plaque at the cavernous and supraclinoid segments. No occlusion, thrombosis, stenosis, extravasation, dissection, or aneurysm. Left middle cerebral artery: Unremarkable. No occlusion, thrombosis, stenosis, extravasation, dissection, or aneurysm. Left anterior cerebral artery: Unremarkable. No occlusion, thrombosis, stenosis, extravasation, dissection, or aneurysm. POSTERIOR CIRCULATION: Right vertebral artery: Diffusely small caliber, likely congenital in nature. Right vertebral artery terminates as the right posterior inferior cerebellar artery. No occlusion, thrombosis, stenosis, extravasation, dissection, or aneurysm. Left vertebral artery: Dominant left vertebral artery. Mild focal calcified plaque at the intracranial segment. The left vertebral artery continues as the basilar artery. No occlusion, thrombosis, stenosis, extravasation, dissection, or aneurysm. Basilar artery: Unremarkable. No occlusion, thrombosis, stenosis, extravasation, dissection, or aneurysm. Right posterior cerebral artery: Unremarkable. No occlusion, thrombosis, stenosis, dissection, or aneurysm. Left posterior cerebral artery: Unremarkable. No occlusion, thrombosis, stenosis, extravasation, dissection, or aneurysm. Right posterior communicating artery: The right posterior communicating artery is not visualized. The right posterior communicating artery may be congenitally absent, or may be too small for the resolution capabilities of this study. Left posterior communicating artery: The left posterior communicating artery is not visualized. The left posterior communicating artery may be congenitally absent, or may be too small for the resolution capabilities of this study. Brain: No definite mass, mass effect, or midline shift. Cerebral ventricles: No ventriculomegaly. Orbital cavity: Globes and lenses, extraocular muscles, and optic nerves are intact bilaterally. No acute intraorbital abnormality. Bones/joints: Unremarkable. No acute fracture. Mastoid air cells: Mastoid air cells are clear bilaterally. Soft tissues: Unremarkable. Paranasal sinuses: Mild mucoperiosteal thickening in the left maxillary sinus.Other paranasal sinuses are clear. Dental: Cavitary and periodontal disease involving multiple maxillary and mandibular teeth. PROCEDURE INFORMATION: Exam: CT Angiography Neck With Contrast Exam date and time: 11/24/2021 8:04 PM Age: 51 years old Clinical indication: Dizziness and giddiness; Additional info: Dizzy TECHNIQUE: Imaging protocol: Computed tomography angiography of the neck with contrast. Sagittal and coronal reformatted images were created and reviewed. 3D rendering (Not supervised by radiologist): MIP and/or 3D reconstructed images were created by the technologist. Radiation optimization: All CT scans at this facility use at least one of these dose optimization techniques: automated exposure control; mA and/or kV adjustment per patient size (includes targeted exams where dose is matched to clinical indication); or iterative reconstruction. Contrast material: OMNI 350; Contrast volume: 95 ml; Contrast route: INTRAVENOUS (IV); COMPARISON: No relevant prior studies available. RADIATION DOSE METRICS: Total DLP (mGy-cm): 2711.68 FINDINGS: Right common carotid artery: Mild noncalcified plaque at the carotid bulb. No occlusion, thrombosis, stenosis, extravasation, dissection, or aneurysm. Right internal carotid artery: Unremarkable. No occlusion, thrombosis, stenosis, extravasation, dissection, or aneurysm. Right external carotid artery: Unremarkable. No occlusion, thrombosis, stenosis, extravasation, dissection, or aneurysm. Left common carotid artery: Mild noncalcified plaque distally. No occlusion, thrombosis, stenosis, extravasation, dissection, or aneurysm. Left internal carotid artery: Mild calcified and noncalcified plaque at the origin. Tortuous course of the mid cervical segment. No occlusion, thrombosis, stenosis, extravasation, dissection, or aneurysm. Left external carotid artery: Mild noncalcified plaque at the origin. No occlusion, thrombosis, stenosis, extravasation, dissection, or aneurysm. Right vertebral artery: Diffusely small caliber, likely congenital in nature. No occlusion, thrombosis, stenosis, extravasation, dissection, or aneurysm. Left vertebral artery: Dominant left vertebral artery. No occlusion, thrombosis, stenosis, extravasation, dissection, or aneurysm. Brachiocephalic artery: Unremarkable. No occlusion, thrombosis, stenosis, extravasation, dissection, or aneurysm. Subclavian arteries: Unremarkable. No occlusion, thrombosis, stenosis, extravasation, dissection, or aneurysm. Aorta: Mild calcified plaque in the visualized aortic arch. No occlusion, thrombosis, stenosis, extravasation, dissection, or aneurysm. Lymph nodes: Multiple enlarged lymph nodes in the neck. The largest measures 1.5 cm in short axis (series 3, image 67). Soft tissues: No soft tissue swelling. No radiopaque foreign body. Bones/joints: Mild degenerative changes in the visualized spine. Mild degenerative changes in the visualized spine. Lungs: Visualized lungs are clear. CT/CT angio headneck* [id number] IMPRESSION: 1. Mild atherosclerotic disease. No occlusion, thrombosis, stenosis, extravasation, dissection, or aneurysm. 2. Cavitary and periodontal disease involving multiple maxillary and mandibular teeth. 3. The anterior communicating artery and posterior communicating arteries are not visualized. The posterior communicating arteries may be congenitally absent, or may be too small for the resolution capabilities of this study. 4. Variant arterial anatomy as described in the report. 5. Incidental/nonacute findings are listed in the report. IMPRESSION: 1. Mild atherosclerotic disease. No occlusion, thrombosis, stenosis, extravasation, dissection, or aneurysm. 2. Nonspecific cervical lymphadenopathy, which could be reactive in nature. Followup imaging recommended to insure stability/resolution however. 3. Incidental/nonacute findings are listed in the report. REFERENCES: NASCET CRITERIA. The degree of internal carotid artery stenosis is based on NASCET criteria. Normal is no stenosis. Mild is less than 50% stenosis. Moderate is 50-69% stenosis. Severe is 70% to 99% stenosis. Total occlusion is no detectable patent lumen.
[2021-11-24] MEDS: iohexol 350 mg/mL 100 mL Btl IV (20:00)
[2021-11-24 20:15] VITALS: BP 156/96; PULSE 74; RESP 23; O2SAT 94
--- NOTE | 2021-11-24 20:17 | PC.NURSE ---
PT PLACED ON CONTINUOUS BEDSIDE CARDIAC, BP AND O2 MONITOR.
[2021-11-24] MEDS: meclizine 25 mg tablet PO ×2 (20:22→23:07)
[2021-11-24] MEDS: sodium chloride 0.9% 1,000 ML 999 ML IV (20:22)
[2021-11-24 20:33] LABS: Basophils # 0.1 10^3/uL (0.0-0.1); Basophils % 0.8 %; Eosinophils # 0.4 10^3/uL (0.0-0.8); Eosinophils % 3.4 %; Hematocrit 41.9 % (37.0-47.0); Hemoglobin 13.9 g/dL (11.5-15.3); Lymphocytes # 2.4 10^3/uL (0.8-4.8); Lymphocytes % 23.5 %; Mean Corpuscular HGB Conc 33.2 g/dL (30.0-36.0); Mean Corpuscular Hemoglobin 29.6 pg (28.0-34.0); Mean Corpuscular Volume 89.3 fl (81-99); Mean Platelet Volume 11.4 fL (7.4-10.4); Monocytes # 0.8 10^3/uL (0.2-0.9); Monocytes % 7.4 %; Neutrophils # 6.64 10^3/uL (1.8-7.7); Neutrophils % 64.7 %; Nucleated Red Blood Cells % 0 %; Platelet Count 288 10^3/cmm (130-400); Red Blood Count 4.69 10^6/uL (4.1-5.3); Red Cell Distribution Width 13.5 % (12.1-15.1); White Blood Count 10.3 10^3/uL (4.0-10.0)
[2021-11-24 20:57] LABS: Troponin(5th) Baseline 19 ng/L (0-10)
[2021-11-24 21:30] LABS: Alanine Aminotransferase 29 U/L (0-33); Albumin Level 3.5 g/dL (3.5-5.2); Alkaline Phosphatase 83 IU/L (35-105); Anion Gap 17.2 (5-19); Aspartate Amino Transferase 21 U/L (0-32); Blood Urea Nitrogen 24 mg/dL (6-20); Calcium 9.1 mg/dL (8.5-10.5); Carbon Dioxide 23 mmol/L (22-29); Chloride 98 mmol/L (98-107); Globulin 3.7 g/dL (1.3-4.6); Glomerular Filtration Rate 88.6 mL/min (90-130); Glucose 259 mg/dL (65-115); Osmolality Calculated 291 mOsm/kg (285-295); Potassium 4.2 mmol/L (3.5-5.1); Sodium 134 mmol/L (136-145); Thyroid Stimulating Hormone 2.34 uIU/mL (0.27-4.20); Total Bilirubin 0.3 mg/dL (0.15-1.2); Total Protein 7.2 g/dL (6.6-8.7)
--- NOTE | 2021-11-24 21:43 | MRR_ITS ---
PROCEDURE INFORMATION: Exam: MR Head Without Contrast Exam date and time: 11/24/2021 10:15 PM Age: 51 years old Clinical indication: Dizziness; Additional info: Stroke like symptoms, dizzy, visual disturbance, abnormal CT TECHNIQUE: Imaging protocol: MR of the head without contrast. COMPARISON: CT head wo con* [id number] 11/24/2021 8:00 PM FINDINGS: Brain: No acute intracranial hemorrhage. No acute infarct. No intra-axial or extra-axial masses. No midline shift. No extra-axial fluid collections. Raya-white matter differentiation is unremarkable. Normal flow voids are present. Seventh and eighth cranial nerve complexes are unremarkable. No evidence for Chiari 1 malformation. No evidence for mesial temporal sclerosis. Cerebral ventricles: No hydrocephalus. Incidental note of a cavum septum pellucidum. Bones/joints: No acute fracture. Paranasal sinuses: Mild mucoperiosteal thickening in the the left maxillary sinus. Other visualized paranasal sinuses are clear. Mastoid air cells: Visualized mastoid air cells are clear. Orbital cavities: Globes and lenses, extraocular muscles, and optic nerves are intact bilaterally. No acute intraorbital abnormality. Soft tissues: No acute abnormality of the extracranial soft tissues. MR/MR head wo con* [id number] IMPRESSION: 1. No acute abnormality of the brain. 2. Mild mucoperiosteal thickening in the the left maxillary sinus.
[2021-11-24] MEDS: diazePAM 5 mg Tablet PO (23:27)
[2021-11-24 23:42] VITALS: BP 142/83; PULSE 71; RESP 18; O2SAT 96
--- NOTE | 2021-11-26 14:28 | DCPLANNER ---
Addendum entered by Sari Otto 11/27/21 08:51: assistant community manager called to confirm that the clinic received the order for physical therapy, rn case manager was told that they did receive the order. Original Note: assistant community manager had message to refer patient to physical therapy. assistant community manager faxed signed order to physical therapy. Clinic will call patient with appointment information.
--- NOTE | 2021-11-26 14:33 | DCPLANNER ---
Addendum entered by Sari Otto 02/21/22 06:49: Patient had an appointment scheduled for 02.15.[address] Dean at neurology - patient did attend appointment. Addendum entered by Sari Otto 12/08/21 15:06: Patient has a follow up appointment scheduled for Tuesday, February 15, 2022 at 10:[address] Dean. Clinic will notify patient with appointment information. Addendum entered by Sari Otto 12/03/21 07:03: web services manager sent a message to neurology to confirm if an appointment had been scheduled for patient. Addendum entered by Sari Otto 12/01/21 15:44: web services manager sent an email checking to see if an appointment had been scheduled for patient. Original Note: web services manager had message to schedule a follow up appointment for patient with neurology. web services manager emailed patients information to the neurology clinic group email. Patients information will be printed and reviewed. Clinic will call patient with appointment information.
== END 2021-11-24 23:44 | disposition home or self-care (01) ==
PROVIDERS: Emergency Medicine; Emergency Provider Emergency Medicine; PCP Family Medicine Adult Medicine
DX: R42 Dizziness and giddiness (principal); H53.8 Other visual disturbances; Z79.01 Long term (current) use of anticoagulants; Z79.84 Long term (current) use of oral hypoglycemic drugs; Z79.4 Long term (current) use of insulin; I25.10 Atherosclerotic heart disease of native coronary artery without angina pectoris; I11.0 Hypertensive heart disease with heart failure; I50.9 Heart failure, unspecified; E11.9 Type 2 diabetes mellitus without complications; E78.5 Hyperlipidemia, unspecified
CPT/HCPCS: 36415; 70450; 70496; 70498; 70551; 71045; 80053; 84443; 84484; 85025; 93005; 96360; 99284; J7030; J8597; Q9967

== ENCOUNTER → 2021-12-09 02:55 | Outpatient (BNVA) | payer MEDICAID, SELFPAY | PROVIDERS: PCP Family Medicine Adult Medicine; Visit Provider Orthopaedic Surgery | DX: M25.531 Pain in right wrist (principal) | CPT/HCPCS: 99213 ==

== ENCOUNTER 2022-01-26 15:04 | Outpatient (CLI) | payer MEDICAID, SELFPAY ==
--- NOTE | 2022-01-26 15:15 | MR_ITS ---
WS: [id number] INDICATION: Medial RIGHT wrist pain TECHNIQUE: Coronal T1, PD, coronal 3-D FSPGR, sagittal T1, axial T1, axial T2 fat sat, and coronal ST IR imaging FINDINGS: Marker overlying the wrist at the level of the distal ulna. Soft tissue edema in the underl derek subcutaneous soft tissues extending to the retinaculum. Small effusion in the DRUJ. Evidence of complex tear TFCC. This involves the foveal and styloid attachments. Fluid and edema along the extens or carpi ulnaris compatible with tenosynovitis. Suggestion of additional small central TFCC tear Normal bone marrow signal in the distal ulna. Ulna styloid appears intact. Normal bone marrow signal in the distal radius. Normal carpal tunnel. Small amount of subchondral cystic change involving the l unate. Normal scaphoid. Normal scapholunate interval. Mild cystic degenerative changes involving the proximal and distal carpal row. Normal carpal tunnel. Small amount of edema along the extensor retina culum. MR/MR wrist RT wo con* [id number] IMPRESSION: 1. Fluid and edema deep to the palpable marker along the ulnar aspect of the R IGHT wrist. 2. Complex tear of the peripheral TFCC involving the foveal and styloid attach ments. Small amount of fluid in the DRUJ. 3. Tenosynovitis along the extensor carpi ulnaris. 4. Suggestion of a tiny central TFCC tear with fluid in the DRUJ and subchondr al cystic change in the lunate. 5. Normal scaphoid. 6. Small amount of edema along the extensor retinaculum.
== END 2022-01-26 15:05 | disposition home or self-care (01) ==
LOC: RAD 15:04
PROVIDERS: PCP Family Medicine Adult Medicine; Visit Provider Orthopaedic Surgery
DX: M65.88 Other synovitis and tenosynovitis, other site (principal); M25.531 Pain in right wrist; S66.811A Strain of other specified muscles, fascia and tendons at wrist and hand level, right hand, initial encounter; X58.XXXA Exposure to other specified factors, initial encounter
CPT/HCPCS: 73221

== ENCOUNTER → 2022-02-15 09:27 | Outpatient (BNVA) | payer MEDICAID, SELFPAY | PROVIDERS: PCP Family Medicine Adult Medicine; Referring Provider Emergency Medicine; Visit Provider Specialist | DX: R42 Dizziness and giddiness (principal); F15.21 Other stimulant dependence, in remission; G25.4 Drug-induced chorea; T43.625S Adverse effect of amphetamines, sequela; G43.711 Chronic migraine without aura, intractable, with status migrainosus; F41.9 Anxiety disorder, unspecified; E11.42 Type 2 diabetes mellitus with diabetic polyneuropathy; Z79.4 Long term (current) use of insulin; Z79.84 Long term (current) use of oral hypoglycemic drugs | CPT/HCPCS: 99204; 99205 ==

== ENCOUNTER → 2022-02-16 10:40 | Outpatient (BNVA) | payer MEDICAID, SELFPAY | PROVIDERS: PCP Family Medicine Adult Medicine; Visit Provider Orthopaedic Surgery | DX: S63.591A Other specified sprain of right wrist, initial encounter (principal); X58.XXXA Exposure to other specified factors, initial encounter | CPT/HCPCS: 99213 ==

== ENCOUNTER → 2022-06-02 10:05 | Outpatient (BNVA) | payer MEDICAID, SELFPAY | PROVIDERS: PCP Family Medicine Adult Medicine; Visit Provider Family Medicine Adult Medicine | DX: Z91.013 Allergy to seafood (principal); K21.9 Gastro-esophageal reflux disease without esophagitis; G47.33 Obstructive sleep apnea (adult) (pediatric); J44.9 Chronic obstructive pulmonary disease, unspecified; I50.9 Heart failure, unspecified; E11.9 Type 2 diabetes mellitus without complications; H40.9 Unspecified glaucoma; J42 Unspecified chronic bronchitis | CPT/HCPCS: 83036 ==

== ENCOUNTER → 2023-04-05 08:28 | Outpatient (BNVA) | payer MEDICAID, SELFPAY | PROVIDERS: PCP Family Medicine Adult Medicine; Visit Provider Family Medicine Adult Medicine | DX: E11.69 Type 2 diabetes mellitus with other specified complication (principal); E78.5 Hyperlipidemia, unspecified; I10 Essential (primary) hypertension | CPT/HCPCS: 80053; 80061; 83036 ==

== ENCOUNTER 2023-08-17 10:36 | Outpatient (CLI) | payer MEDICAID, SELFPAY ==
--- NOTE | 2023-08-17 10:52 | MM_ITS ---
WS: [id number] VIEWS: MLO and CC views both breasts. 3D digital tomosynthesis is also included in this exam. Comparison made with prior exam of 04/21/2011. Findings: There was no sign of mass, architectural distortion or suspicious calcification in either breast. The breasts are almost entirely fatty Impression: MM/[place] [id number] BI-RADS: 1-Negative FOLLOW-UP: 1 Year Follow-up This mammogram was also analyzed by the Computer Aided Detection System R2 Imag e Regulator Operator.
== END 2023-08-17 10:37 | disposition home or self-care (01) ==
LOC: RAD 10:36
PROVIDERS: PCP Family Medicine Adult Medicine; Visit Provider Family Medicine Adult Medicine
DX: Z12.31 Encounter for screening mammogram for malignant neoplasm of breast (principal)
CPT/HCPCS: 77063; 77067

== ENCOUNTER 2024-03-11 13:38 | Emergency (ER) | payer MEDICARE, MEDICAID, SELFPAY ==
[2024-03-11 14:53] VITALS: BP 116/111; PULSE 87; RESP 16; TEMP 36.6; O2SAT 94
--- NOTE | 2024-03-11 15:13 | XRR_ITS ---
PROCEDURE INFORMATION: Exam: XR Right Shoulder Exam date and time: 03/11/2024 3:50 PM Age: 54 years old Clinical indication: Right; Patient HX: RT shoulder pain with limited rom; No known injury TECHNIQUE: Imaging protocol: Radiologic exam of the right shoulder. Views: 2 or more views. COMPARISON: CR XR shoulder RT min 2V* [id number] 11/10/2018 1:57 PM FINDINGS: Bones/joints: Calcification adjacent to the greater tuberosity of the humeral head is consistent with calcific tendinosis of the rotator cuff tendons. There moderate degenerative changes across the acromioclavicular joint. Soft tissues: Normal. XR/XR shoulder RT min 2V* [id number] IMPRESSION: 1. Calcification adjacent to the greater tuberosity of the humeral head is consistent with calcific tendinosis of the rotator cuff tendons. 2. There moderate degenerative changes across the acromioclavicular joint.
--- NOTE | 2024-03-11 15:13 | W.ED.EXTPRO ---
HPI - Extremity Problem General: Chief complaint: Extremity Injury, Upper Stated complaint: Right shoulder pain going down arm Time Seen by Provider: 03/11/24 14:59 History of Present Illness: 54-year-old female comes in today for complaints of right shoulder pain. Patient reports pain started about 3 days ago. Patient just awakened with the pain. Patient does not recall any injury. Patient has increased pain with movement of the shoulder and palpation of the shoulder. Review of Systems General: Reports: 10 or more systems reviewed and unremarkable except in HPI and below Musc: Reports: joint pain (Right shoulder) PFSH ED PFSH: Medical History (Updated 03/11/24 @ 15:35 by NIESHA Dolan) SANDRA treated with BiPAP Diabetes mellitus type 2 with neurological manifestations Osteoarthritis GERD (gastroesophageal reflux disease) Uncontrolled diabetes mellitus Ocular migraine eye exam 04/06/2023 Mikel Howard Chest pain made worse by breathing Cannabis abuse Methamphetamine dependence Hyperlipidemia associated with type 2 diabetes mellitus Hypertension Mural thrombus of left ventricle Not present on 04/07/2021 Echo SPG Morbid obesity with BMI of 40.0-44.9, adult Anxiety about health PTSD (post-traumatic stress disorder) Dental caries CHF (congestive heart failure) Echo SPG 04/07/2021 45-50% LVEF CAD (coronary artery disease) SPG 03/2021 Cath with mild 30% LAD Surgical History History of 2 sections Hx of cholecystectomy Hx of hysterectomy History of umbilical hernia repair Family History Grandmother CAD (coronary artery disease) Dementia Lung disease Mother Hypertension Dementia Lung disease Stroke Grandmother Family history of premature coronary artery disease Family/Other Diabetes Father Lung disease Grandfather Stroke Denies family history of Clotting disorder Chronic kidney disease (CKD) Suicide Anesthesia complication Bleeding disorder Cancer Social History (Updated 06/22/22 @ 09:00 by Jabari Lamar LPN) Smoking and tobacco/nicotine status: never used tobacco/nicotine Second hand smoke exposure: No Alcohol intake: current Alcohol intake frequency: holidays/special occasions only Alcohol type: hard liquor Substance/Drug Use: current Substance/Drug use frequency: Special occassions/opportunity only Adopted: No Lives independently: Yes Household members: children and none Housing: Apartment Marital status: / Number of children: 4 Highest education level completed: GED or Equivalent service: No Current occupational status: disabled Physical Exam Const: COMMON NORMALS: alert HENMT: COMMON NORMALS: normocephalic HEAD & SCALP: normocephalic Neck/C-Spine: COMMON NORMALS: full ROM Resp: COMMON NORMALS: normal respiratory effort and clear to auscultation bilaterally AUSCULTATION: clear to auscultation bilaterally Cardio: COMMON NORMALS: regular rate and regular rhythm RATE: regular rate RHYTHM: regular rhythm GI: COMMON NORMALS: Soft to palpation and non-tender PALPATION: Yes Soft to palpation Back/Pelvis: COMMON NORMALS: thoracic and lumbar spine normal to inspection Extremity: RIGHT UPPER EXTREMITY: Yes shoulder joint (Palpable tenderness, increased pain with range of motion.) Right shoulder: Yes Right shoulder joint inspection exam, Yes palpation and Yes Right shoulder joint ROM exam (Decreased due to pain, drop test positive) Neuro: SENSORIUM/ORIENTATION: Yes alert Skin: COMMON NORMALS: turgor normal GENERAL SKIN EXAM: turgor normal Course Vital Signs: Vital signs: Vital Signs Temperature 97.8 F 03/11/24 14:53 Pulse Rate 87 03/11/24 14:53 Respiratory Rate 16 03/11/24 14:53 Blood Pressure 116/111 03/11/24 14:53 Pulse Oximetry 94 03/11/24 14:53 MDM - Extremity (Nontraumatic) Medical Decision Making 54-year-old female comes in today with right shoulder pain. On exam patient has tenderness and decreased range of motion due to pain to the shoulder. Distal pulses and sensation are intact. Vital signs are normal. Differential diagnosis includes impingement syndrome of the shoulder, tendinitis, rotator cuff syndrome, osteoarthritis. X-ray was unremarkable. Patient was given medication that dexamethasone 10 mg, hydrocodone with acetaminophen 7.5, and 30 mg of Toradol. Patient was recommended to use the shoulder as tolerated. Recommend ice packs for further pain relief. Recommend return to ER for new concerns such as high fever, shortness of breath, or increased redness and swelling of the shoulder. Patient was recommended to follow-up with primary care. Patient was also placed a case management to orthopedist for further evaluation and treatment. XR interpretation done by ED provider, pending radiology final review Discharge Plan Discharge Patient Disposition: Home Clinical Impression: Right shoulder tendonitis Condition: Stable Prescriptions: New celecoxib 200 mg capsule 200 mg PO BID Qty: 20 0RF hydrocodone-acetaminophen 5-325 mg tablet 1 tab PO Q6H PRN (Reason: pain (scale score 7-10)) Qty: 10 0RF No Action (DME) blood-glucose meter [Accu-Chek Guide Glucose Meter] Misc See Rx Instructions .Route Qty: 1 0RF Rx Instructions: As directed, test blood sugar Twice a day. (DME) lancets [BD Ultra Fine Lancets] 33 gauge misc See Rx Instructions .Route Qty: 100 0RF Rx Instructions: As directed check blood sugar twice a day. latanoprost 0.005 % drops 1 drp ophthalmic (eye) DAILY epinephrine [EpiPen 2-Bryan] 0.3 mg/0.3 mL auto-injector 0.3 mg IM Q4H PRN (Reason: anaphylaxis) Qty: 2 0RF (DME) Bipap machine and supplies See Rx Instructions .Route .MEDSUPPLY Qty: 1 0RF Rx Instructions: As directed, Settings 18/14 cm with insp. time 1.5 sec and rate of 12 citalopram 20 mg tablet See Rx Instructions .ROUTE .COMPLEX Qty: 30 3RF Dose Instruction: TAKE ONE TABLET BY MOUTH DAILY Rx Instructions: TAKE ONE TABLET BY MOUTH DAILY bupropion HCl 150 mg tablet sustained-release 12 hr See Rx Instructions .ROUTE .COMPLEX Qty: 30 3RF Dose Instruction: TAKE 1 TABLET BY MOUTH EVERY MORNING FOR mental health Rx Instructions: TAKE 1 TABLET BY MOUTH EVERY MORNING FOR mental health Eliquis 5 mg tablet See Rx Instructions .ROUTE .COMPLEX Qty: 60 5RF Dose Instruction: TAKE 1 TABLET BY MOUTH TWICE DAILY FOR HISTORY OF THROMBUS Rx Instructions: TAKE 1 TABLET BY MOUTH TWICE DAILY FOR HISTORY OF THROMBUS losartan 100 mg tablet 100 mg PO DAILY Qty: 30 5RF meclizine 25 mg tablet 12.5 mg PO TID PRN (Reason: dizziness) Qty: 10 0RF nitroglycerin 0.4 mg tablet, sublingual 0.4 mg sublingual DIRECTED PRN (Reason: Chest Pain) Qty: 10 0RF Januvia 100 mg tablet 100 mg PO DAILY Qty: 30 5RF atorvastatin 40 mg tablet 40 mg PO BID Qty: 60 5RF (DME) OneTouch Ultra Test Strip See Rx Instructions .ROUTE .COMPLEX Qty: 100 3RF Dose Instruction: USE DIRECTED CHECK BLOOD SUGAR TWICE DAILY Rx Instructions: USE DIRECTED CHECK BLOOD SUGAR TWICE DAILY carvedilol 25 mg tablet 25 mg PO BID 90 Days Qty: 180 3RF Rx Instructions: must administer with a meal/food furosemide 20 mg tablet 20 mg PO QAM Qty: 30 5RF gabapentin 300 mg capsule 300 mg PO TID Qty: 90 5RF isosorbide mononitrate 60 mg tablet extended release 24 hr 60 mg PO DAILY Qty: 90 1RF Jardiance 25 mg tablet 25 mg PO DAILY Qty: 30 5RF spironolactone 25 mg tablet See Rx Instructions .ROUTE .COMPLEX Qty: 30 5RF Dose Instruction: TAKE 1 TABLET BY MOUTH EVERY DAY Rx Instructions: TAKE 1 TABLET BY MOUTH EVERY DAY pantoprazole 40 mg tablet,delayed release (DR/EC) 40 mg PO DAILY Qty: 90 3RF (DME) pen needle, diabetic [TechLITE Pen Needle] 31 gauge x 3/16 needle See Rx Instructions .Route Qty: 200 3RF Rx Instructions: As directed to administer insulin. albuterol sulfate [Ventolin HFA] 90 mcg/actuation HFA aerosol inhaler 2 inh inhalation QID PRN (Reason: shortness of breath or wheezing) Qty: 18 3RF metformin 1,000 mg tablet 1,000 mg PO BID Qty: 60 5RF Novolog FlexPen U-100 Insulin 100 unit/mL (3 mL) insulin pen See Rx Instructions .ROUTE .COMPLEX Qty: 15 5RF Dose Instruction: INJECT THREE UNITS SUBCUTANEOUSLY THREE TIMES DAILY PER SLIDING SCALE Rx Instructions: INJECT THREE UNITS SUBCUTANEOUSLY THREE TIMES DAILY PER SLIDING SCALE Lantus Solostar U-100 Insulin 100 unit/mL (3 mL) insulin pen See Rx Instructions .ROUTE .COMPLEX Qty: 15 5RF Dose Instruction: INJECT 15 UNITS SUBCUTANEOUSLY EVERY EVENING Rx Instructions: INJECT 15 UNITS SUBCUTANEOUSLY EVERY EVENING topiramate 50 mg tablet 50 mg PO DAILY Qty: 30 0RF Rx Instructions: Must have appointment for further refills. Discharge Orders: Discharge ED (Routine); Ordered 03/11/24 Ordered By: Leonard Rajan Referrals: Seth Brock MD [Primary Care Provider] - Discharge Diet: Usual diet Discharge Activity: Increase activity as tolerated Patient Instructions: Shoulder Impingement Syndrome (ED) Activity Restrictions/Additional Instructions: Activity as tolerated. Use ice and heat to help with pain. Take celecoxib 200 mg for pain and inflammation. Use hydrocodone for severe pain. Follow-up with primary care in 3 to 5 days for recheck. Return to ED for new concerns. Case management will contact you regarding follow-up with orthopedist for further evaluation and treatment. Coding Level of Care Code ED Test Center Administrator for Evelyn Berg
[2024-03-11] MEDS: HYDROcodone-acetaminophen 7.5-325 mg Tablet 1 TAB PO (15:30)
[2024-03-11] MEDS: dexamethasone 10 mg/mL INJ IM (15:30)
[2024-03-11] MEDS: ketorolac 30 mg/mL INJ IM (16:27)
[2024-03-11 16:51] VITALS: BP 139/86; PULSE 86; RESP 18; O2SAT 94
--- NOTE | 2024-03-12 07:53 | DCPLANNER ---
Message sent to ortho for a follow up - impingement shoulder syndrome-
== END 2024-03-11 16:52 | disposition home or self-care (01) ==
PROVIDERS: Emergency Provider Nurse Practitioner Family; PCP Family Medicine Adult Medicine
DX: M77.8 Other enthesopathies, not elsewhere classified (principal); Z79.01 Long term (current) use of anticoagulants; Z79.84 Long term (current) use of oral hypoglycemic drugs; Z79.4 Long term (current) use of insulin; E11.9 Type 2 diabetes mellitus without complications; E78.5 Hyperlipidemia, unspecified; I11.0 Hypertensive heart disease with heart failure; I50.9 Heart failure, unspecified; I25.10 Atherosclerotic heart disease of native coronary artery without angina pectoris
CPT/HCPCS: 73030; 96372; 99284; J1100; J1885

== ENCOUNTER 2024-05-22 10:19 | Emergency (ER) | payer MEDICARE, MEDICAID, SELFPAY ==
--- NOTE | 2024-05-22 10:21 | XRR_ITS ---
PROCEDURE INFORMATION: Exam: XR Chest Exam date and time: 05/22/2024 10:29 AM Age: 54 years old Clinical indication: Pain; Angina pectoris; Additional info: Hypertension TECHNIQUE: Imaging protocol: Radiologic exam of the chest. Views: 1 view. COMPARISON: CR XR chest 1V portable [id number] 11/24/2021 6:29 PM FINDINGS: Lungs: Unremarkable. No consolidation. Pleural spaces: Unremarkable. No pleural effusion. No pneumothorax. Heart/Mediastinum: Unremarkable. No cardiomegaly. Bones/joints: Unremarkable. XR/XR chest 1V portable [id number] IMPRESSION: No acute findings.
--- NOTE | 2024-05-22 10:21 | CT_ITS ---
WS: [id number] CT HEAD NONCONTRAST HISTORY: headache TECHNIQUE: Contiguous axial imaging performed through the brain in 2.0 mm imaging. Bone and soft tiss ue windows. Sagittal and coronal reformats reviewed. All CT scans at [facility] use at least one of these dose optimization techniques: automated exposure control; mA and/or kV adjustment per pa tient size (includes targeted exams where dose is matched to clinical indication); or iterative recon struction. DLP: 1153.28 mGy.cm COMPARISON: 11/24/2021 There is a very subtle area of increased density in the expected location of the anterior cerebral ar teries. This was not present on the prior study from 2021. No significant atrophy. Mild small vessel ischemic disease. No atrophy or prior infarcts or herniation. Ventricles: Normal size with no hydrocephalus. Paranasal sinuses: As visualized are clear. Mastoid air cells: Well pneumatized. Calvarium and scalp: Skull is intact with no soft tissue edema or swelling. Dense calcification in the vertebral arteries and intracranial carotid arteries. CT/CT head wo con* 99010 IMPRESSION: 1. Very subtle area of increased density in the anterior frontal lobes along t he expected location of the anterior cerebral arteries. This may be an artifact but the possibility of a small amount of subarachnoid blood or thrombus in the anterior cerebral artery should be considered. Consider follow-up CT angiogram [place]. 2. Otherwise mild small vessel ischemic disease. 3. Very dense heavy calcification in the distal carotid and vertebral arteries . Notified Chey Reardon MD at 05/22/2024 11:26 AM.
--- NOTE | 2024-05-22 10:21 | ECG_ITS ---
[facility] Test Date: 2024-05-22 Pat Name: Felicia Valdez Department: Room: Gender: Female Claim Processing Specialist: : [id number] Requested By: Chey Godinez Order Number: [id number] Octavia MD: Guero Brown M.D. Measurements Intervals [place] Rate: 87 P: 29 MT: 184 QRS: -44 QRSD: 105 T: 116 QT: 354 QTc: 428 Interpretive Statements SINUS RHYTHM LEFT AXIS DEVIATION [QRS AXIS < -30] SEPTAL MYOCARDIAL INFARCTION , PROBABLY OLD [40+ ms Q WAVE IN V1/V2] MODERATE T-WAVE ABNORMALITY, CONSIDER LATERAL ISCHEMIA [-0.1+ mV T-WAVE IN I/aVL/V5/V6] Compared to ECG 11/24/2021 19:16:04 Myocardial infarct finding now present First degree AV block no longer present Incomplete right bundle-branch block no longer present T-wave abnormality still present Possible ischemia still present Electronically Signed On 05-22-2024 11:14:58 CDT by Guero Brown M.D. [id number]
[2024-05-22 10:22] VITALS: BP 204/133; PULSE 91; RESP 18; TEMP 36.8; O2SAT 93; BMI 41.1
--- NOTE | 2024-05-22 10:43 | ED_ITS ---
HPI - Headache 2 General: Chief Complaint: Headache Stated Complaint: headache Time Seen by Provider: 05/22/24 10:19 History of Present Illness: 54-year-old woman with a history of hype rtension, DVT/PE on Eliquis, hyperlipidemia, type 2 diabetes mellitus and hyperlipidemia who presents emergency room with a headache. Patient/depression and was on a depression medication which she thought made her feel bad so she quit that and also quit taking all of her medications. She arrives today and she is quite hypertensive. No focal motor deficits. No altered mental status. No chest pain. No shortness of breath. No abdominal pain. No nausea or vomiting. No fevers. Related Data Home Medications Medication Instructions Recorded Confirmed latanoprost 0.005 % eye drops 1 drp ophthalmic (eye) DAILY 06/02/22 05/22/24 apixaban 5 mg tablet (Eliquis) 5 mg PO BID HISTORY OF THROMBUS 05/22/24 05/22/24 brimonidine 0.2 % eye drops 1 drp ophthalmic (eye) BID 05/22/24 05/22/24 bupropion HCl 150 mg tablet,12 hr 150 mg PO QAM 05/22/24 05/22/24 sustained-release citalopram 20 mg tablet 20 mg PO DAILY 05/22/24 05/22/24 empagliflozin 25 mg tablet 25 mg PO QAM 05/22/24 05/22/24 (Jardiance) gabapentin 300 mg capsule 300 mg PO TID 05/22/24 05/22/24 insulin glargine 100 unit/mL (3 15 unit SUBCUT QPM 05/22/24 05/22/24 mL) subcutaneous pen (Lantus Solostar U-100 Insulin) isosorbide mononitrate 60 mg 60 mg PO QAM 05/22/24 05/22/24 tablet,extended release 24 hr metformin 1,000 mg tablet 1,000 mg PO BID 05/22/24 05/22/24 spironolactone 25 mg tablet 25 mg PO DAILY 05/22/24 05/22/24 topiramate 50 mg tablet 50 mg PO DAILY 05/22/24 05/22/24 Previous Rx's Medication Instructions Recorded blood-glucose meter (Accu-Chek #1 ea 05/29/21 Guide Glucose Meter) lancets 33 gauge (BD Ultra Fine #100 ea 05/29/21 Lancets) Bipap machine and supplies #1 ea 06/02/22 epinephrine 0.3 mg/0.3 mL 0.3 mg (0.3 mL) IM Q4H PRN 06/02/22 injection, auto-injector (EpiPen anaphylaxis #2 ea 2-Bryan) losartan 100 mg tablet 100 mg PO DAILY #30 tabs 04/05/23 nitroglycerin 0.4 mg sublingual 0.4 mg sublingual DIRECTED PRN 04/05/23 tablet Chest Pain #10 tabs sitagliptin phosphate 100 mg 100 mg PO DAILY diabetes #30 tabs 04/05/23 tablet (Januvia) atorvastatin 40 mg tablet 40 mg PO BID high 04/06/23 cholesterol/lipids #60 tabs blood sugar diagnostic (OneTouch #100 strips 08/19/23 Ultra Test strips) carvedilol 25 mg tablet 25 mg PO BID 90 days #180 tabs 12/14/23 pantoprazole 40 mg tablet,delayed 40 mg PO DAILY #90 tabs 01/03/24 release pen needle, diabetic 31 gauge x #200 ea 01/03/24 3/16 (TechLITE Pen Needle) Ventolin HFA 90 mcg/actuation 2 inh inhalation QID PRN shortness 02/10/24 aerosol inhaler (albuterol sulfate) of breath or wheezing #18 grams insulin aspart U-100 100 unit/mL See Rx Instructions .Route 03/01/24 (3 mL) subcutaneous pen (Novolog .COMPLEX #15 mL FlexPen U-100 Insulin aspart) celecoxib 200 mg capsule 200 mg PO BID #20 caps 03/11/24 furosemide 20 mg tablet See Rx Instructions .Route 03/13/24 .COMPLEX #30 tabs Allergies Allergy/AdvReac Type Severity Reaction Status Date / Time duloxetine [From Cymbalta] Allergy ADR-Irritab Verified 03/11/24 14:57 le quetiapine [From Seroquel] Allergy ADR-Drowsy Verified 03/11/24 14:57 shellfish derived Allergy ALGY-Swell Verified 03/11/24 14:57 Lip/Tongue/Throat Review of Systems 2 Narrative: Constitutional symptoms: Negative except as documented in HPI. Skin symptoms: Negative except as documented in HPI. Eye symptoms: Negative except as documented in HPI. ENMT symptoms: Negative except as documented in HPI. Respiratory symptoms: Negative except as documented in HPI. Cardiovascular symptoms: Negative except as documented in HPI. Gastrointestinal symptoms: Negative except as documented in HPI. Genitourinary symptoms: Negative except as documented in HPI. Musculoskeletal symptoms: Negative except as documented in HPI. Neurologic symptoms: Negative except as documented in HPI. Psychiatric symptoms: Negative except as documented in HPI. Endocrine symptoms: Negative except as documented in HPI. PFSH ED 2 PFSH: Medical History (Updated 05/22/24 @ 13:32 by Chey Reardon MD) SANDRA treated with BiPAP Diabetes mellitus type 2 with neurological manifestations Osteoarthritis GERD (gastroesophageal reflux disease) Uncontrolled diabetes mellitus Ocular migraine eye exam 04/06/2023 Mikel Howard Chest pain made worse by breathing Cannabis abuse Methamphetamine dependence Hyperlipidemia associated with type 2 diabetes mellitus Hypertension Mural thrombus of left ventricle Not present on 04/07/2021 Echo SPG Morbid obesity with BMI of 40.0-44.9, adult Anxiety about health PTSD (post-traumatic stress disorder) Dental caries CHF (congestive heart failure) Echo SPG 04/07/2021 45-50% LVEF CAD (coronary artery disease) SPG 03/2021 Cath with mild 30% LAD Surgical History History of 2 sections Hx of cholecystectomy Hx of hysterectomy History of umbilical hernia repair Family History Grandmother CAD (coronary artery disease) Dementia Lung disease Mother Hypertension Dementia Lung disease Stroke Grandmother Family history of premature coronary artery disease Family/Other Diabetes Father Lung disease Grandfather Stroke Denies family history of Clotting disorder Chronic kidney disease (CKD) Suicide Anesthesia complication Bleeding disorder Cancer Social History (Updated 06/22/22 @ 09:00 by Jabari Lamar LPN) Smoking and tobacco/nicotine status: never used tobacco/nicotine Second hand smoke exposure: No Alcohol intake: current Alcohol intake frequency: holidays/special occasions only Alcohol type: hard liquor Substance/Drug Use: current Substance/Drug use frequency: Special occassions/opportunity only Adopted: No Lives independently: Yes Household members: children and none Housing: Apartment Marital status: / Number of children: 4 Highest education level completed: GED or Equivalent service: No Current occupational status: disabled Physical Exam 2 Narrative: EXAM NARRATIVE: General: Alert, no acute distress. Skin: Warm, dry. Head: Normocephalic, atraumatic. Neck: Supple, trachea midline. Eye: Extraocular movements are intact. Ears, nose, mouth and throat: mucosa moist. Cardiovascular: Regular, Normal peripheral perfusion. Respiratory: Lungs are clear to auscultation, respirations are non-labored, breath sounds are equal, Symmetrical chest wall expansion. Gastrointestinal: Soft, Nontender, Non distended Musculoskeletal: Normal ROM, no deformity. Neurological: Alert and oriented, No focal neurological deficit observed. Psychiatric: Cooperative, appropriate mood & affect. Course 2 Vital Signs: Vital signs: Vital Signs Temperature 98.2 F 05/22/24 10:22 Pulse Rate 86 05/22/24 12:51 Respiratory Rate 17 05/22/24 12:51 Blood Pressure 180/115 05/22/24 12:51 Pulse Oximetry 96 05/22/24 12:51 Oxygen Delivery Me thod Room Air 05/22/24 12:47 MDM - Headache Medical Decision Making Medical decision making: Differential diagnosis for this patient presenting with severe headache including but not limited to and based on the above HPI, review of systems and physical exam: Intracranial hemorrhage, stroke, migraine, cluster headache, infections such as influenza, covid Orders placed to evaluate differential diagnosis based on the above differential, HPI and physical exam EKG: Time 10:24 AM. Rate 87. Normal sinus rhythm, No ST-T changes, no ectopy, normal TN & QRS intervals, This was reviewed and interpreted by myself the ER physician at 10:27 AM Lab Review: Laboratory results were reviewed and interpreted by myself the emergency room physician. Lab work is fairly unremarkable. No leukocytosis. No anemia. BUN/creatinine are 22 and 0.5. Glucose is just 207 today. Serial troponins are negative. Chest x-ray: No acute process. No infiltrate. No pneumothorax. This was reviewed and interpreted by myself the ER physician. CT head: No acute intracranial process. no intracranial hemorrhage, no evidence of infarct. no evidence of acute fracture.This was reviewed and interpreted by myself the ER physician. There is concern for density in the anterior frontal lobe, a CTA was ordered and this is likely just artifact as the CTA was negative for any sort of bleeding or abnormalities. CTA of the head and neck: No significant large arterial stenosis or occlusion in the head. This was reviewed and interpreted by myself the emergency room physician. I also reviewed the radiology report. I reviewed the patient's medical record. Reexamination: Patient remained stable. No increased work of breathing. No altered mental status. No focal motor deficits. Patient appears to be doing quite better after blood pressure has improved. She is received clonidine and hydralazine. She will resume her home medications. She still has these. She also has a primary care appointment on Tuesday. This will be her first time with his primary. Assessment and plan: Accelerated hypertension Headache Medical noncompliance ?Clonidine and hydralazine in the emergency room. Improved blood pressures. - Discharged home - Discussed findings and plan with patient. Answered any questions. - All laboratory values were reviewed and interpreted personally by myself, the ER physician - All imaging was reviewed and interpreted personally by myself, the ER physician. - Evaluation and treatment of this problem were appropriate in the emergency setting Lab Data 05/22/24 11:45 05/22/24 11:45 Radiology Impressions Chest X-Ray 05/22/24 10:21 IMPRESSION: No acute findings. Head CT 05/22/24 10:21 IMPRESSION: 1. Very subtle area of increased density in the anterior frontal lobes along the expected location of the anterior cerebral arteries. This may be an artifact but the possibility of a small amount of subarachnoid blood or thrombus in the anterior cerebral artery should be considered. Consider follow-up CT angiogram [place]. 2. Otherwise mild small vessel ischemic disease. 3. Very dense heavy calcification in the distal carotid and vertebral arteries. Notified Chey Reardon MD at 05/22/2024 11:26 AM. Head/Neck CTA 05/22/24 11:28 IMPRESSION: No significant large arterial stenosis or occlusion in the head. IMPRESSION: No significant large arterial stenosis or occlusion in the neck. REFERENCES: NASCET CRITERIA. The degree of stenosis in the cervical segment of the internal carotid artery is based on NASCET criteria. Normal is no stenosis. Mild is less than 50% stenosis. Moderate is 50-69% stenosis. Severe is 70% to 99% stenosis. Total occlusion is no detectable patent lumen. Laboratory Results WBC 9.01 10^3/uL (3.29-11.43) 05/22/24 11:45 RBC 5.19 10^6/uL (3.85-5.65) 05/22/24 11:45 Hgb 15.60 g/dL (11.27-16.99) 05/22/24 11:45 Hct 46.5 % (36-47) 05/22/24 11:45 MCV 89.6 fl (85-98) 05/22/24 11:45 MCH 30.1 pg (27-33) 05/22/24 11:45 MCHC 33.5 g/dL (30-55) 05/22/24 11:45 RDW 12.6 % (12.1-15.1) 05/22/24 11:45 Plt Count 336 10^3/cmm (157-399) 05/22/24 11:45 MPV 10.8 fL (7.4-10.4) H 05/22/24 11:45 Neut % (Auto) 53.4 % 05/22/24 11:45 Lymph % (Auto) 33.3 % 05/22/24 11:45 [place] % (Auto) 8.3 % 05/22/24 11:45 Eos % (Auto) 3.9 % 05/22/24 11:45 Baso % (Auto) 0.9 % 05/22/24 11:45 Neut # (Auto) 4.81 10^3/uL (1.8-7.7) 05/22/24 11:45 Lymph # (Auto) 3.0 10^3/uL (0.8-4.8) 05/22/24 11:45 [place] # (Auto) 0.8 10^3/uL (0.2-0.9) 05/22/24 11:45 Eos # (Auto) 0.4 10^3/uL (0.0-0.8) 05/22/24 11:45 Baso # (Auto) 0.1 10^3/uL (0.0-0.1) 05/22/24 11:45 Nucleated RBC % (auto) 0 % 05/22/24 11:45 Nucleated RBCs # 0.0 /100WBC 05/22/24 11:45 Sodium 138 mmol/L (136-145) 05/22/24 11:45 Potassium 4.7 mmol/L (3.5-5.1) 05/22/24 11:45 Chloride 102 mmol/L (98-107) 05/22/24 11:45 Carbon Dioxide 23 mmol/L (22-29) 05/22/24 11:45 Anion Gap 17.7 (5-19) 05/22/24 11:45 BUN 22 mg/dL (6-20) H 05/22/24 11:45 Creatinine 0.5 mg/dL (0.5-0.9) 05/22/24 11:45 GFR Calculation 129.1 mL/min (90-130) 05/22/24 11:45 Glucose 207 mg/dL (65-115) H 05/22/24 11:45 Calculated Osmolality 295 mOsm/kg (285-295) 05/22/24 11:45 Calcium 8.9 mg/dL (8.5-10.5) 05/22/24 11:45 Total Bilirubin 0.3 mg/dL (0.15-1.2) 05/22/24 11:45 AST 26 U/L (0-32) 05/22/24 11:45 ALT 23 U/L (0-33) 05/22/24 11:45 Alkaline Phosphatase 93 U/L (35-105) 05/22/24 11:45 Troponin T Baseline 32 ng/L (0-10) H 05/22/24 11:45 Troponin T 120 Minute 28.10 ng/L (0-10) H 05/22/24 12:56 Delta Troponin T -3.90 ABS# (0-10) L 05/22/24 12:56 Total Protein 6.9 g/dL (6.6-8.7) 05/22/24 11:45 Albumin 3.9 g/dL (3.5-5.2) 05/22/24 11:45 Globulin 3.0 g/dL (1.3-4.6) 05/22/24 11:45 All radiology interpretation(s) finalized by discharge Discharge Plan Discharge Patient Disposition: Home Clinical Impression: Accelerated hypertension, Headache, Medical non-compliance Condition: Stable Prescriptions: No Action (DME) blood-glucose meter [Accu-Chek Guide Glucose Meter] Misc See Rx Instructions .Route Qty: 1 0RF Rx Instructions: As directed, test blood sugar Twice a day. (DME) lancets [BD Ultra Fine Lancets] 33 gauge misc See Rx Instructions .Route Qty: 100 0RF Rx Instructions: As directed check blood sugar twice a day. latanoprost 0.005 % drops 1 drp ophthalmic (eye) DAILY epinephrine [EpiPen 2-Bryan] 0.3 mg/0.3 mL auto-injector 0.3 mg IM Q4H PRN (Reason: anaphylaxis) Qty: 2 0RF (DME) Bipap machine and supplies See Rx Instructions .Route .MEDSUPPLY Qty: 1 0RF Rx Instructions: As directed, Settings 18/14 cm with insp. time 1.5 sec and rate of 12 losartan 100 mg tablet 100 mg PO DAILY Qty: 30 5RF nitroglycerin 0.4 mg tablet, sublingual 0.4 mg sublingual DIRECTED PRN (Reason: Chest Pain) Qty: 10 0RF Januvia 100 mg tablet 100 mg PO DAILY Qty: 30 5RF atorvastatin 40 mg tablet 40 mg PO BID Qty: 60 5RF (DME) OneTouch Ultra Test Strip See Rx Instructions .ROUTE .COMPLEX Qty: 100 3RF Dose Instruction: USE DIRECTED CHECK BLOOD SUGAR TWICE DAILY Rx Instructions: USE DIRECTED CHECK BLOOD SUGAR TWICE DAILY carvedilol 25 mg tablet 25 mg PO BID 90 Days Qty: 180 3RF Rx Instructions: must administer with a meal/food pantoprazole 40 mg tablet,delayed release (DR/EC) 40 mg PO DAILY Qty: 90 3RF (DME) pen needle, diabetic [TechLITE Pen Needle] 31 gauge x 3/16 needle See Rx Instructions .Route Qty: 200 3RF Rx Instructions: As directed to administer insulin. albuterol sulfate [Ventolin HFA] 90 mcg/actuation HFA aerosol inhaler 2 inh inhalation QID PRN (Reason: shortness of breath or wheezing) Qty: 18 3RF Novolog FlexPen U-100 Insulin 100 unit/mL (3 mL) insulin pen See Rx Instructions .ROUTE .COMPLEX Qty: 15 5RF Dose Instruction: INJECT THREE UNITS SUBCUTANEOUSLY THREE TIMES DAILY PER SLIDING SCALE Rx Instructions: INJECT THREE UNITS SUBCUTANEOUSLY THREE TIMES DAILY PER SLIDING SCALE furosemide 20 mg tablet See Rx Instructions .ROUTE .COMPLEX Qty: 30 5RF Dose Instruction: TAKE ONE TABLET (20 MG) BY MOUTH DAILY AT 9 AM EVERY MORNING FOR EDEMA/ HEART Rx Instructions: TAKE ONE TABLET (20 MG) BY MOUTH DAILY AT 9 AM EVERY MORNING FOR EDEMA/ HEART celecoxib 200 mg capsule 200 mg PO BID Qty: 20 0RF brimonidine 0.2 % drops 1 drp ophthalmic (eye) BID bupropion HCl 150 mg tablet sustained-release 12 hr 150 mg PO QAM spironolactone 25 mg tablet 25 mg PO DAILY isosorbide mononitrate 60 mg tablet extended release 24 hr 60 mg PO QAM citalopram 20 mg tablet 20 mg PO DAILY metformin 1,000 mg tablet 1,000 mg PO BID gabapentin 300 mg capsule 300 mg PO TID topiramate 50 mg tablet 50 mg PO DAILY Lantus Solostar U-100 Insulin 100 unit/mL (3 mL) insulin pen 15 unit SUBCUT QPM Eliquis 5 mg tablet 5 mg PO BID Jardiance 25 mg tablet 25 mg PO QAM Discharge Orders: Discharge ED (Routine); Ordered 05/22/24 Ordered By: Chey Reardon Referrals: Seth Brock MD [Physician] - Discharge Diet: Usual diet Discharge Activity: Increase activity as tolerated Patient Instructions: Hypertension (ED) Activity Restrictions/Additional Instructions: You can resume the following medications: Eliquis, atorvastatin, carvedilol, furosemide, losartan, and spironolactone. At this point your sugar was only 200 today so I would talk with your primary on Tuesday about resuming your metformin and your Lantus. Thank you for choosing [facility] for your healthcare needs today. Please realize this is an emergency room and that we are providing you with a medical screening exam and this may not be complete and all inclusive of all the testing and or work up that you may need to determine your ailment or severity of your illness. You have been screened and evaluated and felt safe for discharge. Health conditions do change or evolve sometimes and as such it is important that you follow up with your Primary Doctor to be re checked, 3-5 days is a general good time frame for follow up. You are always welcome to return to the ED for re assessment if your symptoms are worsening or you have new concerns Coding Level of Care Code ED Homicide Detective for Evelyn Berg
[2024-05-22 11:04] VITALS: BP 207/145; PULSE 85; RESP 20; O2SAT 95
[2024-05-22] MEDS: cloNIDine 0.1 mg Tablet PO (11:04)
--- NOTE | 2024-05-22 11:28 | CTR_ITS ---
PROCEDURE INFORMATION: Exam: CTA Head With Contrast, Arteriography Exam date and time: 05/22/2024 12:04 PM Age: 54 years old Clinical indication: Pain; Headache; Additional info: Possible stroke TECHNIQUE: Imaging protocol: Computed tomographic angiography of the head with contrast. Exam focused on the arteries. 3D rendering (Not supervised by radiologist): MIP and/or 3D reconstructed images were created by the technologist. Radiation optimization: All CT scans at this facility use at least one of these dose optimization techniques: automated exposure control; mA and/or kV adjustment per patient size (includes targeted exams where dose is matched to clinical indication); or iterative reconstruction. Contrast material: [id number]; Contrast volume: 100 ml; Contrast route: INTRAVENOUS (IV); COMPARISON: CT angio headneck* [id number] 11/24/2021 8:04 PM RADIATION DOSE METRICS: Total DLP (mGy-cm): 540 FINDINGS: ANTERIOR CIRCULATION: Right internal carotid artery: Intracranial segment is patent with no significant stenosis. No aneurysm. Right middle cerebral artery: No occlusion or significant stenosis. No aneurysm. Right anterior cerebral artery: No occlusion or significant stenosis. No aneurysm. Left internal carotid artery: Intracranial segment is patent with no significant stenosis. No aneurysm. Left middle cerebral artery: No occlusion or significant stenosis. No aneurysm. Left anterior cerebral artery: No occlusion or significant stenosis. No aneurysm. POSTERIOR CIRCULATION: Right vertebral artery: No occlusion or significant stenosis. No aneurysm. Left vertebral artery: No occlusion or significant stenosis. No aneurysm. Basilar artery: Focal short segment calcific disease of the proximal basilar artery at the skull base, without significant stenosis. No occlusion or significant stenosis. No aneurysm. Right posterior cerebral artery: No occlusion or significant stenosis. No aneurysm. Left posterior cerebral artery: No occlusion or significant stenosis. No aneurysm. Brain: No acute intracranial hemorrhage. Normal differentiation of bhatia white matter. No midline shift. Cerebral ventricles: Ventricles are normal in caliber. Mastoid air cells: Mastoid air cells are clear. Paranasal sinuses: Visualized paranasal sinuses are clear. Bones/joints: No acute osseous findings. Soft tissues: Superficial soft tissues are within normal limits. PROCEDURE INFORMATION: Exam: CTA Neck With Contrast Exam date and time: 05/22/2024 12:04 PM Age: 54 years old Clinical indication: Pain; Headache; Additional info: Possible stroke TECHNIQUE: Imaging protocol: Computed tomographic angiography of the neck with contrast. Exam focused on the cervical segments of the vasculature. 3D rendering (Not supervised by radiologist): MIP and/or 3D reconstructed images were created by the technologist. Radiation optimization: All CT scans at this facility use at least one of these dose optimization techniques: automated exposure control; mA and/or kV adjustment per patient size (includes targeted exams where dose is matched to clinical indication); or iterative reconstruction. Contrast material: [id number]; Contrast volume: 100 ml; Contrast route: INTRAVENOUS (IV); COMPARISON: CT angio headneck* [id number] 11/24/2021 8:04 PM RADIATION DOSE METRICS: Total DLP (mGy-cm): 540 FINDINGS: Right common carotid artery: No stenosis. No dissection or occlusion. Right internal carotid artery: No stenosis of the extracranial segment. No dissection or occlusion. Right external carotid artery: No occlusion or stenosis of the origin. Left common carotid artery: No stenosis. No dissection or occlusion. Left internal carotid artery: No stenosis of the extracranial segment. No dissection or occlusion. Left external carotid artery: No occlusion or stenosis of the origin. Right vertebral artery: Right vertebral artery is diminutive along the majority of its course and does not terminate at the basilar artery. This is a normal variant. No stenosis. No dissection or occlusion. Left vertebral artery: No stenosis. No dissection or occlusion. Thyroid: Thyroid is normal. Lymph nodes: Numerous tiny upper mediastinal and cervical chain lymph nodes. Soft tissues: Visualized superficial soft tissues are within normal limits. Bones/joints: Multilevel thoracolumbar spondylosis. No acute osseous findings. Lungs: Visualized lung apices are clear. CT[facility] [id number] IMPRESSION: No significant large arterial stenosis or occlusion in the head. IMPRESSION: No significant large arterial stenosis or occlusion in the neck. REFERENCES: NASCET CRITERIA. The degree of stenosis in the cervical segment of the internal carotid artery is based on NASCET criteria. Normal is no stenosis. Mild is less than 50% stenosis. Moderate is 50-69% stenosis. Severe is 70% to 99% stenosis. Total occlusion is no detectable patent lumen.
[2024-05-22 12:00] LABS: Basophils # 0.1 10^3/uL (0.0-0.1); Basophils % 0.9 %; Eosinophils # 0.4 10^3/uL (0.0-0.8); Eosinophils % 3.9 %; Hematocrit 46.5 % (36-47); Lymphocytes % 33.3 %; Mean Corpuscular HGB Conc 33.5 g/dL (30-55); Mean Corpuscular Hemoglobin 30.1 pg (27-33); Mean Corpuscular Volume 89.6 fl (85-98); Mean Platelet Volume 10.8 fL (7.4-10.4); Monocytes # 0.8 10^3/uL (0.2-0.9); Monocytes % 8.3 %; Neutrophils # 4.81 10^3/uL (1.8-7.7); Neutrophils % 53.4 %; Nucleated Red Blood Cells % 0 %; Platelet Count 336 10^3/cmm (157-399); Red Blood Count 5.19 10^6/uL (3.85-5.65); Red Cell Distribution Width 12.6 % (12.1-15.1); White Blood Count 9.01 10^3/uL (3.29-11.43)
[2024-05-22] MEDS: iohexol 350 mg/mL 500 mL Btl (per mL) IV (12:16)
[2024-05-22 12:19] LABS: Troponin(5th) Baseline 32 ng/L (0-10)
[2024-05-22 12:20] LABS: Alanine Aminotransferase 23 U/L (0-33); Albumin Level 3.9 g/dL (3.5-5.2); Alkaline Phosphatase 93 U/L (35-105); Aspartate Amino Transferase 26 U/L (0-32); Blood Urea Nitrogen 22 mg/dL (6-20); Calcium 8.9 mg/dL (8.5-10.5); Carbon Dioxide 23 mmol/L (22-29); Chloride 102 mmol/L (98-107); Glomerular Filtration Rate 129.1 mL/min (90-130); Glucose 207 mg/dL (65-115); Osmolality Calculated 295 mOsm/kg (285-295); Sodium 138 mmol/L (136-145); Total Bilirubin 0.3 mg/dL (0.15-1.2); Total Protein 6.9 g/dL (6.6-8.7)
[2024-05-22 12:21] VITALS: BP 162/106; PULSE 80; RESP 17; O2SAT 94
--- NOTE | 2024-05-22 12:21 | ECG_ITS ---
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 Measurements Intervals [place] Rate: 79 P: 27 NV: 192 QRS: -46 QRSD: 113 T: 99 QT: 406 QTc: 466 Interpretive Statements SINUS RHYTHM LEFT AXIS DEVIATION [QRS AXIS < -30] SEPTAL MYOCARDIAL INFARCTION , PROBABLY OLD [40+ ms Q WAVE IN V1/V2] MODERATE T-WAVE ABNORMALITY, CONSIDER LATERAL ISCHEMIA [-0.1+ mV T-WAVE IN I/aVL/V5/V6] Compared to ECG 05/22/2024 10:24:46 No significant changes Electronically Signed On 05-22-2024 15:27:13 CDT by Guero Brown M.D. [id number]
[2024-05-22 12:22] LABS: Anion Gap 17.7 (5-19); Potassium 4.7 mmol/L (3.5-5.1)
[2024-05-22 12:47] VITALS: BP 178/124; PULSE 76; RESP 18; O2SAT 96
[2024-05-22] MEDS: hyDRALAzine 20 mg/mL INJ 1 mL IVP (12:47)
[2024-05-22 12:51] VITALS: BP 180/115; PULSE 86; RESP 17; O2SAT 96
--- NOTE | 2024-05-22 12:52 | PC.PHAR ---
Pt verified all the medications she should be taking but has not taken in 4 months. Pts states gets a bit freaked out about taking so many medications and just stops all of them. Promises to get back on them and keep taking.
[2024-05-22 13:49] VITALS: BP 145/89; PULSE 82; RESP 18; O2SAT 95
== END 2024-05-22 13:51 | disposition home or self-care (01) ==
PROVIDERS: Emergency Provider Emergency Medicine; PCP Family Medicine
DX: R51.9 Headache, unspecified (principal); Z91.148 Patient's other noncompliance with medication regimen for other reason; Z79.4 Long term (current) use of insulin; Z79.01 Long term (current) use of anticoagulants; Z79.84 Long term (current) use of oral hypoglycemic drugs; E11.9 Type 2 diabetes mellitus without complications; E78.5 Hyperlipidemia, unspecified; I11.0 Hypertensive heart disease with heart failure; I50.9 Heart failure, unspecified; I25.10 Atherosclerotic heart disease of native coronary artery without angina pectoris
CPT/HCPCS: 70450; 70496; 70498; 71045; 80053; 84484; 85025; 93005; 96374; 99285; J0360

== ENCOUNTER 2025-04-15 10:11 | Inpatient (IN) | payer OTHER, MEDICAID, SELFPAY ==
[2025-04-15] VITALS (20 sets, daily range): BP systolic 142–178; BP diastolic 82–118; PULSE 73–85; RESP 12–22; TEMP 36.3–36.8; O2SAT 90–97; BMI 34.3; BMI 38.2
--- NOTE | 2025-04-15 10:12 | XRR_ITS ---
PROCEDURE INFORMATION: Exam: XR Chest Exam date and time: 04/15/2025 10:47 AM Age: 55 years old Clinical indication: Pain; Angina pectoris; Additional info: Cp TECHNIQUE: Imaging protocol: Radiologic exam of the chest. Views: 1 view. COMPARISON: CR XR chest 1V portable [id number] 05/22/2024 10:29 AM FINDINGS: Lungs: Unremarkable. No consolidation. Pleural spaces: Unremarkable. No pleural effusion. No pneumothorax. Heart/Mediastinum: Unremarkable. No cardiomegaly. Bones/joints: Unremarkable. XR/XR chest 1V portable [id number] IMPRESSION: No acute findings.
--- NOTE | 2025-04-15 10:18 | ECG_ITS ---
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 Measurements Intervals [place] Rate: 86 P: 66 IN: 181 QRS: -67 QRSD: 109 T: 81 QT: 396 QTc: 475 Interpretive Statements SINUS RHYTHM LEFT AXIS DEVIATION [QRS AXIS < -30] SEPTAL MYOCARDIAL INFARCTION , OF INDETERMINATE AGE [40+ ms Q WAVE IN V1/V2] MODERATE T-WAVE ABNORMALITY, CONSIDER LATERAL ISCHEMIA [-0.1+ mV T-WAVE IN I/aVL/V5/V6] Compared to ECG 05/22/2024 12:14:29 No significant changes Electronically Signed On 04-15-2025 22:45:08 CDT by Andressa Jason M.D. [id number] [id number]
--- NOTE | 2025-04-15 10:28 | CT_ITS ---
WS: [id number] CT ABDOMEN PELVIS TECHNIQUE: Contrast-enhanced CT of the abdomen and pelvis with coronal and sagittal reformatted images. CLINICAL INFORMATION: abd pain COMPARISON: CT 2012 DLP: 978.[address] scans at [facility] use at least one of these dose optimization techniques: automated exposure control; mA and/or kV adjustment per patient size (includes targeted exams where dose is matched to clinical indication); or iterative reconstruction. FINDINGS: Fatty liver. Cholecystectomy. Diffuse gastric rugal enhancement extending into the duodenum compatible with gastroduodenitis. Submucosal enhancement in the distal esophagus compatible with esophagitis. A few dilated enhancing small bowel loops in the LEFT upper quadrant may be due to enteritis versus early partial small bowel obstruction. Air distended loops of transverse colon. No evidence of high-grade obstruction. Few air-fluid levels in small bowel in the midabdomen. Distal ileum is decompressed. Prior cholecystectomy. Prior hysterectomy. Adrenal glands are normal. Normal spleen. Normal renal parenchymal enhancement. No hydronephrosis. CT/CT abdomen pelvis w con* [id number] IMPRESSION: 1. Few dilated loops of fluid-filled small bowel in the LEFT upper quadrant mi d abdomen some with enhancement suspicious for small bowel enteritis versus par tial small bowel obstruction. Persistent air within the colon. No high-grade ob struction. 2. Evidence of prominent gastritis and duodenitis with esophagitis. 3. Prior cholecystectomy and hysterectomy. 4. Air distended transverse colon likely due to adynamic ileus 5. No other acute findings.
--- NOTE | 2025-04-15 10:29 | W.ED.ABDPA2 ---
HPI - Abdominal Pain General: Chief Complaint: Abdominal Pain Stated Complaint: chest pain Time Seen by Provider: 04/15/25 10:13 Source: patient Mode of arrival: ambulatory Limitations: no limitations History of Present Illness: 55-year-old female who states that she started having epigastric and right upper quadrant abdominal pain roughly an hour ago states is a very sharp pain she had some nausea and vomiting with the pain. States it is worse with movement and palpation states she had some pain radiate in her chest she denies any shortness of breath denies any fevers. Associated Symptoms: Reports nausea and vomiting; Denies chills, diarrhea, dysuria and fever(s) Related Data Home Medications ?Medication ?Instructions ?Recorded ?Confirmed latanoprost 0.005 % eye drops 1 drp ophthalmic (eye) DAILY 06/02/22 05/22/24 apixaban 5 mg tablet (Eliquis) 5 mg PO BID HISTORY OF THROMBUS 05/22/24 05/22/24 brimonidine 0.2 % eye drops 1 drp ophthalmic (eye) BID 05/22/24 05/22/24 bupropion HCl 150 mg tablet,12 hr 150 mg PO QAM 05/22/24 05/22/24 sustained-release citalopram 20 mg tablet 20 mg PO DAILY 05/22/24 05/22/24 empagliflozin 25 mg tablet 25 mg PO QAM 05/22/24 05/22/24 (Jardiance) gabapentin 300 mg capsule 300 mg PO TID 05/22/24 05/22/24 insulin glargine 100 unit/mL (3 15 unit SUBCUT QPM 05/22/24 05/22/24 mL) subcutaneous pen (Lantus Solostar U-100 Insulin) isosorbide mononitrate 60 mg 60 mg PO QAM 05/22/24 05/22/24 tablet,extended release 24 hr metformin 1,000 mg tablet 1,000 mg PO BID 05/22/24 05/22/24 spironolactone 25 mg tablet 25 mg PO DAILY 05/22/24 05/22/24 topiramate 50 mg tablet 50 mg PO DAILY 05/22/24 05/22/24 Previous Rx's ?Medication ?Instructions ?Recorded blood-glucose meter (Accu-Chek #1 ea 05/29/21 Guide Glucose Meter) lancets 33 gauge (BD Ultra Fine #100 ea 05/29/21 Lancets) Bipap machine and supplies #1 ea 06/02/22 epinephrine 0.3 mg/0.3 mL 0.3 mg (0.3 mL) IM Q4H PRN 06/02/22 injection, auto-injector (EpiPen anaphylaxis #2 ea 2-Bryan) losartan 100 mg tablet 100 mg PO DAILY #30 tabs 04/05/23 nitroglycerin 0.4 mg sublingual 0.4 mg sublingual DIRECTED PRN 04/05/23 tablet Chest Pain #10 tabs sitagliptin phosphate 100 mg 100 mg PO DAILY diabetes #30 tabs 04/05/23 tablet (Januvia) atorvastatin 40 mg tablet 40 mg PO BID high 04/06/23 cholesterol/lipids #60 tabs blood sugar diagnostic (OneTouch #100 strips 08/19/23 Ultra Test strips) carvedilol 25 mg tablet 25 mg PO BID 90 days #180 tabs 12/14/23 pantoprazole 40 mg tablet,delayed 40 mg PO DAILY #90 tabs 01/03/24 release pen needle, diabetic 31 gauge x #200 ea 01/03/24 3/16 (TechLITE Pen Needle) Ventolin HFA 90 mcg/actuation 2 inh inhalation QID PRN shortness 02/10/24 aerosol inhaler (albuterol sulfate) of breath or wheezing #18 grams insulin aspart U-100 100 unit/mL See Rx Instructions .Route 03/01/24 (3 mL) subcutaneous pen (Novolog .COMPLEX #15 mL FlexPen U-100 Insulin aspart) celecoxib 200 mg capsule 200 mg PO BID #20 caps 03/11/24 furosemide 20 mg tablet See Rx Instructions .Route 03/13/24 .COMPLEX #30 tabs Allergies Allergy/AdvReac Type Severity Reaction Status Date / Time duloxetine (From Cymbalta) Allergy ADR-Irritab Verified 04/15/25 10:20 le quetiapine (From Seroquel) Allergy ADR-Drowsy Verified 04/15/25 10:20 shellfish derived Allergy ALGY-Swell Verified 04/15/25 10:20 Lip/Tongue/Throat Review of Systems Const: Denies: fever(s), chills, body aches or change in appetite ENMT: Denies: throat pain or dental pain Card: Denies: chest pain Resp: Denies: dyspnea GI: Reports: abdominal pain, nausea and vomiting; Denies: diarrhea : Denies: dysuria Musc: Denies: neck pain or back pain Skin/Breast: Denies: rash Neuro: Denies: headache(s) PFSH ED PFSH: Medical History SANDRA treated with BiPAP Diabetes mellitus type 2 with neurological manifestations Osteoarthritis GERD (gastroesophageal reflux disease) Uncontrolled diabetes mellitus Ocular migraine eye exam 04/06/2023 Mikel Howard Chest pain made worse by breathing Cannabis abuse Methamphetamine dependence Hyperlipidemia associated with type 2 diabetes mellitus Hypertension Mural thrombus of left ventricle Not present on 04/07/2021 Echo SPG Morbid obesity with BMI of 40.0-44.9, adult Anxiety about health PTSD (post-traumatic stress disorder) Dental caries CHF (congestive heart failure) Echo SPG 04/07/2021 45-50% LVEF CAD (coronary artery disease) SPG 03/2021 Cath with mild 30% LAD Surgical History History of 2 sections Hx of cholecystectomy Hx of hysterectomy History of umbilical hernia repair Family History Grandmother CAD (coronary artery disease) Dementia Lung disease Mother Hypertension Dementia Lung disease Stroke Grandmother Family history of premature coronary artery disease Family/Other Diabetes Father Lung disease Grandfather Stroke Denies family history of Clotting disorder Chronic kidney disease (CKD) Suicide Anesthesia complication Bleeding disorder Cancer Social History Smoking and tobacco/nicotine status: never used tobacco/nicotine Second hand smoke exposure: No Alcohol intake: current Alcohol intake frequency: holidays/special occasions only Alcohol type: hard liquor Substance/Drug Use: current Substance/Drug use frequency: Special occassions/opportunity only Adopted: No Lives independently: Yes Household members: children and none Housing: Apartment Marital status: / Number of children: 4 Highest education level completed: GED or Equivalent service: No Current occupational status: disabled Physical Exam Const: COMMON NORMALS: patient oriented x3 HENMT: COMMON NORMALS: normocephalic and atraumatic HEAD & SCALP: normocephalic and atraumatic Eye: COMMON NORMALS: conjunctivae normal CONJUNCTIVA: Yes conjunctivae normal Neck/C-Spine: COMMON NORMALS: full ROM and supple Chest: COMMONS NORMALS: normal inspection of the chest and normal palpation of entire chest wall Resp: COMMON NORMALS: normal respiratory effort, No retractions, No use of accessory muscles and clear to auscultation bilaterally AUSCULTATION: clear to auscultation bilaterally Cardio: COMMON NORMALS: regular rate, regular rhythm and No murmurs present (Cardio) RATE: regular rate RHYTHM: regular rhythm GI: COMMON NORMALS: Normal to inspection, nondistended, normoactive bowel sounds present, Soft to palpation and no masses PALPATION: Yes Soft to palpation OTHER: ruq and epigastric tenderness Extremity: COMMON NORMALS: normal to inspection and full ROM Neuro: COMMON NORMALS: patient oriented x3, moves all extremities and no focal motor deficits Psych: COMMON NORMALS: mental status grossly normal, Normal thought process present and cooperative THOUGHT PROCESS: Normal thought process present Skin: COMMON NORMALS: no rashes or lesions noted and no wounds GENERAL SKIN EXAM: no rashes or lesions noted Course Vital Signs: Vital signs: Vital Signs Temperature 98.3 F 04/15/25 10:14 Pulse Rate 76 04/15/25 12:23 Respiratory Rate 17 04/15/25 11:10 Blood Pressure 166/118 04/15/25 10:14 Pulse Oximetry 94 04/15/25 12:23 Oxygen Delivery Me thod Room Air 04/15/25 12:23 MDM - Abdominal Pain Medical Decision Making Patient presents here with abdominal pain vomiting does have a small bowel obstruction likely causing the symptoms we will place an NG I spoke to the hospitalist will admit at this time. Medical Records I reviewed the patient's medical records. Lab Data I reviewed the patient's lab results. 04/15/25 10:40 04/15/25 10:40 Labs/Radiology: Radiology Impressions Chest X-Ray 04/15/25 10:12 IMPRESSION: No acute findings. Abdomen/Pelvis CT 04/15/25 10:28 IMPRESSION: 1. Few dilated loops of fluid-filled small bowel in the LEFT upper quadrant mid abdomen some with enhancement suspicious for small bowel enteritis versus partial small bowel obstruction. Persistent air within the colon. No high-grade obstruction. 2. Evidence of prominent gastritis and duodenitis with esophagitis. 3. Prior cholecystectomy and hysterectomy. 4. Air distended transverse colon likely due to adynamic ileus 5. No other acute findings. Laboratory Results WBC 11.92 10^3/uL (3.29-11.43) H 04/15/25 10:40 RBC 5.83 10^6/uL (3.85-5.65) H 04/15/25 10:40 Hgb 17.50 g/dL (11.27-16.99) H 04/15/25 10:40 Hct 51.2 % (36-47) H 04/15/25 10:40 MCV 87.8 fl (85-98) 04/15/25 10:40 MCH 30.0 pg (27-33) 04/15/25 10:40 MCHC 34.2 g/dL (30-55) 04/15/25 10:40 RDW 13.0 % (12.1-15.1) 04/15/25 10:40 Plt Count 363 10^3/cmm (157-399) 04/15/25 10:40 MPV 10.3 fL (7.4-10.4) 04/15/25 10:40 Neut % (Auto) 60.7 % 04/15/25 10:40 Lymph % (Auto) 28.2 % 04/15/25 10:40 [place] % (Auto) 7.3 % 04/15/25 10:40 Eos % (Auto) 2.8 % 04/15/25 10:40 Baso % (Auto) 0.7 % 04/15/25 10:40 Neut # (Auto) 7.24 10^3/uL (1.8-7.7) 04/15/25 10:40 Lymph # (Auto) 3.4 10^3/uL (0.8-4.8) 04/15/25 10:40 [place] # (Auto) 0.9 10^3/uL (0.2-0.9) 04/15/25 10:40 Eos # (Auto) 0.3 10^3/uL (0.0-0.8) 04/15/25 10:40 Baso # (Auto) 0.1 10^3/uL (0.0-0.1) 04/15/25 10:40 Nucleated RBC % (auto) 0 % 04/15/25 10:40 Nucleated RBCs # 0.0 /100WBC 04/15/25 10:40 Sodium 139 mmol/L (136-145) 04/15/25 10:40 Potassium 4.7 mmol/L (3.5-5.1) 04/15/25 10:40 Chloride 100 mmol/L (98-107) 04/15/25 10:40 Carbon Dioxide 25 mmol/L (22-29) 04/15/25 10:40 Anion Gap 18.7 (5-19) 04/15/25 10:40 BUN 25 mg/dL (6-20) H 04/15/25 10:40 Creatinine 0.8 mg/dL (0.5-0.9) 04/15/25 10:40 GFR Calculation 74.7 mL/min (90-130) L 04/15/25 10:40 Glucose 190 mg/dL (65-115) H 04/15/25 10:40 Calculated Osmolality 297 mOsm/kg (285-295) H 04/15/25 10:40 Calcium 9.8 mg/dL (8.5-10.5) 04/15/25 10:40 Total Bilirubin 0.4 mg/dL (0.15-1.2) 04/15/25 10:40 AST 22 U/L (0-32) 04/15/25 10:40 ALT 23 U/L (0-33) 04/15/25 10:40 Alkaline Phosphatase 109 U/L (35-105) H 04/15/25 10:40 Troponin T Baseline 42 ng/L (0-10) H 04/15/25 10:40 Total Protein 8.1 g/dL (6.6-8.7) 04/15/25 10:40 Albumin 4.3 g/dL (3.5-5.2) 04/15/25 10:40 Globulin 3.8 g/dL (1.3-4.6) 04/15/25 10:40 Lipase 31 U/L (13-60) 04/15/25 10:40 All radiology interpretation(s) finalized by discharge EKG Data EKG 1: I personally reviewed and interpreted this EKG as follows: EKG interpretation date: 04/15/25 EKG interpretation time: 10:18 Interpretation: nsr hr [address] elevation qrs 109 qtc 439 umchamged from previous ekg Discharge Plan Discharge Patient Disposition: Admitted As Inpatient Clinical Impression: Small bowel obstruction Condition: Stable Coding Level of Care Code ED Rifle Case Repairer for Evelyn Berg
[2025-04-15 10:49] LABS: Hematocrit 51.2 % (36-47); Hemoglobin 17.50 g/dL (11.27-16.99); Mean Corpuscular HGB Conc 34.2 g/dL (30-55); Mean Corpuscular Hemoglobin 30.0 pg (27-33); Mean Corpuscular Volume 87.8 fl (85-98); Nucleated Red Blood Cells % 0 %; Platelet Count 363 10^3/cmm (157-399); Red Blood Count 5.83 10^6/uL (3.85-5.65); White Blood Count 11.92 10^3/uL (3.29-11.43)
[2025-04-15] MEDS: morphine 4 mg/mL SDV 1 mL IVP (11:10)
[2025-04-15] MEDS: ondansetron 2 mg/ML SDV 2 mL 4 MG IVP (11:10)
[2025-04-15] MEDS: iohexol 350 mg/mL 500 mL Btl (per mL) IV (11:11)
[2025-04-15] MEDS: HYDROmorphone 0.5 MG/0.5 ML INJ 1 MG IVP (11:11)
[2025-04-15 11:14] LABS: Alanine Aminotransferase 23 U/L (0-33); Albumin Level 4.3 g/dL (3.5-5.2); Alkaline Phosphatase 109 U/L (35-105); Anion Gap 18.7 (5-19); Aspartate Amino Transferase 22 U/L (0-32); Blood Urea Nitrogen 25 mg/dL (6-20); Calcium 9.8 mg/dL (8.5-10.5); Carbon Dioxide 25 mmol/L (22-29); Chloride 100 mmol/L (98-107); Creatinine Clr Calc Pharmacy 87.7038; Globulin 3.8 g/dL (1.3-4.6); Glucose 190 mg/dL (65-115); Lipase 31 U/L (13-60); Osmolality Calculated 297 mOsm/kg (285-295); Potassium 4.7 mmol/L (3.5-5.1); Sodium 139 mmol/L (136-145); Total Protein 8.1 g/dL (6.6-8.7)
[2025-04-15 11:15] LABS: Troponin(5th) Baseline 42 ng/L (0-10)
--- NOTE | 2025-04-15 12:13 | ECG_ITS ---
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1970 Requested By: Jason Guzmán Order Number: [id number] Reading MD: RADHA PURVIS Measurements Intervals [place] Rate: 94 P: 65 MA: 182 QRS: -76 QRSD: 104 T: 109 QT: 364 QTc: 457 Interpretive Statements SINUS RHYTHM LEFT AXIS DEVIATION [QRS AXIS < -30] INCOMPLETE RIGHT BUNDLE BRANCH BLOCK [90+ ms QRS DURATION, TERMINAL R IN V1/V2, 40+ ms S IN I/aVL/V4/V5/V6] MODERATE T-WAVE ABNORMALITY, CONSIDER LATERAL ISCHEMIA [-0.1+ mV T-WAVE IN I/aVL/V5/V6] Compared to ECG 04/15/2025 10:18:37 Incomplete right bundle-branch block now present Myocardial infarct finding no longer present T-wave abnormality still present Possible ischemia still present Electronically Signed On 04-16-2025 20:16:04 CDT by RADHA PURVIS [id number] [id number]
[2025-04-15] MEDS: LORazepam 1 MG/0.5 ML injection 0.5 MG IVP (12:26)
[2025-04-15] MEDS: HYDROmorphone 0.5 MG/0.5 ML INJ IVP (12:35)
--- NOTE | 2025-04-15 12:58 | XRR_ITS ---
PROCEDURE INFORMATION: Exam: XR Chest Exam date and time: 04/15/2025 12:59 PM Age: 55 years old Clinical indication: Device placement; Ng tube; Additional info: Ng tube placement TECHNIQUE: Imaging protocol: Radiologic exam of the chest. Views: 1 view. COMPARISON: CR XR chest 1V portable [id number] 04/15/2025 10:47 AM FINDINGS: Tubes, catheters and devices: Esophagogastric tube is present with the tip in the stomach. Lungs: Unremarkable. No consolidation. Pleural spaces: Unremarkable. No pleural effusion. No pneumothorax. Heart/Mediastinum: Unremarkable. No cardiomegaly. Bones/joints: Unremarkable. XR/XR chest 1V portable [id number] IMPRESSION: 1. No acute cardiopulmonary process. 2. Esophagogastric tube is present with the tip in the stomach.
[2025-04-15 13:11] LABS: Troponin 5 2HR 37.38 ng/L (0-10)
[2025-04-15 13:24] LABS: Troponin 5 2HR Delta -4.62 ABS# (0-10)
--- NOTE | 2025-04-15 13:28 | PM.HP ---
Providers/Chief Complaint Admitting Physician: Dr. Langston Primary Care Provider: Ave Reyes, Chief Complaint: abdominal pain, N/V. History of Present Illness Felicia Valdez is a 55 year old female with sudden onset of right upper quadrant abdominal pain/right lower chest pain that started this AM on awakening. She has had similar pain in the past but not to this extent. She has recently started ozempic for her diabetes, however she states that she has been inconsistent with her medications and doesn't take it regularly. The pain is described as severe, nonradiating and associated with N/V. She denies any blood in the vomit. In ER, her CT was concerning for partial SBO and NGT was placed and she is admitted for further treatment. Review of Systems Const: Denies: fever(s), chills or body aches Eyes: Denies: blurry vision ENMT: Denies: dental pain Card: Denies: chest pain or palpitations Resp: Denies: dyspnea or productive cough GI: Reports: abdominal pain, nausea and vomiting : Denies: dysuria, urinary frequency, urinary urgency or urinary hesitancy Musc: Denies: neck pain or back pain Skin/Breast: Denies: rash, pruritus or erythema Neuro: Denies: headache(s) Psych: Denies: anxiety or depression Medications/Allergies Home Medications ?Medication ?Instructions ?Recorded ?Confirmed ?Last Taken ?Type blood-glucose meter (Accu-Chek #1 ea 05/29/21 05/22/24 Unknown Rx Guide Glucose Meter) lancets 33 gauge (BD Ultra Fine #100 ea 05/29/21 05/22/24 Unknown Rx Lancets) Bipap machine and supplies #1 ea 06/02/22 05/22/24 Unknown Rx sitagliptin phosphate 100 mg 100 mg PO DAILY diabetes #30 tabs 04/05/23 05/22/24 Unknown Rx tablet (Januvia) atorvastatin 40 mg tablet 40 mg PO BID high 04/06/23 05/22/24 Unknown Rx cholesterol/lipids #60 tabs blood sugar diagnostic (OneTouch #100 strips 08/19/23 05/22/24 Unknown Rx Ultra Test strips) carvedilol 25 mg tablet 25 mg PO BID 90 days #180 tabs 12/14/23 05/22/24 Unknown Rx pen needle, diabetic 31 gauge x #200 ea 01/03/24 05/22/24 Unknown Rx 11/18 (TechLITE Pen Needle) celecoxib 200 mg capsule 200 mg PO BID #20 caps 03/11/24 05/22/24 Unknown Rx furosemide 20 mg tablet See Rx Instructions .Route 03/13/24 05/22/24 Unknown Rx .COMPLEX #30 tabs apixaban 5 mg tablet (Eliquis) 5 mg PO BID HISTORY OF THROMBUS 05/22/24 05/22/24 Unknown History brimonidine 0.2 % eye drops 1 drp ophthalmic (eye) BID 05/22/24 05/22/24 Unknown History bupropion HCl 150 mg tablet,12 hr 150 mg PO QAM 05/22/24 05/22/24 Unknown History sustained-release empagliflozin 25 mg tablet 25 mg PO QAM 05/22/24 05/22/24 Unknown History (Jardiance) gabapentin 300 mg capsule 300 mg PO TID 05/22/24 05/22/24 Unknown History isosorbide mononitrate 60 mg 60 mg PO QAM 05/22/24 05/22/24 Unknown History tablet,extended release 24 hr metformin 1,000 mg tablet 1,000 mg PO BID 05/22/24 05/22/24 Unknown History topiramate 50 mg tablet 50 mg PO DAILY 05/22/24 05/22/24 Unknown History insulin glargine 100 unit/mL (3 12 unit SUBCUT BEDTIME 04/15/25 04/15/25 Unknown History mL) subcutaneous pen (Lantus Solostar U-100 Insulin) Allergies Allergy/AdvReac Type Severity Reaction Status Date / Time duloxetine (From Cymbalta) Allergy ADR-Irritab Verified 04/15/25 10:20 le quetiapine (From Seroquel) Allergy ADR-Drowsy Verified 04/15/25 10:20 shellfish derived Allergy ALGY-Swell Verified 04/15/25 10:20 Lip/Tongue/Throat PFSH Acute PFSH: Medical History (Updated 04/15/25 @ 13:36 by Emeterio Langston MD) Peripheral neuropathy 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 Glaucoma SANDRA treated with BiPAP Diabetes mellitus type 2 with neurological manifestations Osteoarthritis GERD (gastroesophageal reflux disease) Uncontrolled diabetes mellitus Ocular migraine eye exam 04/06/2023 Mikel Howard Chest pain made worse by breathing Cannabis abuse Methamphetamine dependence Hyperlipidemia associated with type 2 diabetes mellitus Hypertension Mural thrombus of left ventricle Not present on 04/07/2021 Echo SPG Morbid obesity with BMI of 40.0-44.9, adult Anxiety about health PTSD (post-traumatic stress disorder) Dental caries CHF (congestive heart failure) Echo SPG 04/07/2021 45-50% LVEF CAD (coronary artery disease) SPG 03/2021 Cath with mild 30% LAD Surgical History History of 2 sections Hx of cholecystectomy Hx of hysterectomy History of umbilical hernia repair Family History Grandmother CAD (coronary artery disease) Dementia Lung disease Mother Hypertension Dementia Lung disease Stroke Grandmother Family history of premature coronary artery disease Family/Other Diabetes Father Lung disease Grandfather Stroke Denies family history of Clotting disorder Chronic kidney disease (CKD) Suicide Anesthesia complication Bleeding disorder Cancer Social History (Updated 04/15/25 @ 13:38 by Emeterio Langston MD) Smoking and tobacco/nicotine status: never used tobacco/nicotine Second hand smoke exposure: No Alcohol intake: current Alcohol intake frequency: holidays/special occasions only Alcohol type: hard liquor Substance/Drug Use: current Substance/Drug use frequency: Special occassions/opportunity only Substance/Drug use type: Amphetamines Other substance/drug use details: 7 days abstinence Adopted: No Lives independently: Yes Household members: children and none Housing: Apartment Marital status: / Number of children: 4 Highest education level completed: GED or Equivalent service: No Current occupational status: disabled Vitals/I&O/Wt Last Vital Signs Temp 98.3 F 04/15/25 10:14 Pulse 76 04/15/25 12:23 Resp 17 04/15/25 11:10 BP 166/118 04/15/25 10:14 Pulse Ox 94 04/15/25 12:23 O2 Del Method Room Air 04/15/25 12:23 04/14/25 04/15/25 04/15/25 22:59 06:59 14:59 Intake Total 0 / 0 Balance 0 / 0 Weight last 48 hrs Weight 90.718 kg Physical Exam Const: COMMON NORMALS: patient oriented x3 and no limitations NUTRITIONAL APPEARANCE: obese HENMT: COMMON NORMALS: normocephalic and atraumatic OTHER: NGT present Eye: COMMON NORMALS: Equal, round and reactive pupils present Neck/C-Spine: COMMON NORMALS: supple Resp: COMMON NORMALS: normal respiratory effort, No retractions and clear to auscultation bilaterally Cardio: COMMON NORMALS: regular rate, regular rhythm, No gallops present (Cardio), No murmurs present (Cardio) and No rub (Cardio) GI: OTHER: Tenderness to palpation in RUQ. Extremity: GENERAL: Yes edema (BL LE) Neuro: COMMON NORMALS: patient oriented x3 and CN's II-XII intact bilaterally Psych: COMMON NORMALS: mental status grossly normal, Normal thought process present and normal affect Skin: COMMON NORMALS: no rashes or lesions noted Data 04/15/25 10:40 04/15/25 10:40 A&P Assessment and plan 1. Peripheral neuropathy: 2. Small bowel obstruction: 3. Diabetes mellitus type 2 with neurological manifestations: Plan: 55 year old female presenting with partial SBO. Partial SBO - NGT placed in ER - CT ab/pelvis with partial SBO, no high grade obstruction - cont. NPO except ice chips - IV fluids. - IV pain control for now. 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 SANDRA Obesity - home CPAP - hold home lasix for now. Diet: NPO PPx: SCDs, no AC for SBO in case of nonresolution. Hold home eliquis Disposition - OK to walk patient, PT consulted. - may be able to D/C NGT in AM and attempt diet. PDMP PDMP Reviewed: Not Reviewed Attestations Medical Necessity Statement*: Inpatient anticipate > 2 midnights for SBO Time Spent in Patient Care: 16 - 35 minutes (>than 50% of time spent in counselling and/or direct pt care on unit). Coding Level of Care Code Acute Code for Chg Fwd Diagnoses Peripheral neuropathy G62.9 Small bowel obstruction K56.609 Diabetes mellitus type 2 with neurological manifestations E11.49
--- NOTE | 2025-04-15 13:38 | ECG_ITS ---
[facility] Date: 2025-04-15 Pat Name: Felicia Valdez Department: Room: Gender: Female Manager Contract: : [id number] Requested By: Jason Guzmán Order Number: [id number] Octavia MD: RADHA PURVIS Measurements Intervals [place] Rate: 77 P: 41 NH: 164 QRS: -57 QRSD: 94 T: 118 QT: 390 QTc: 443 Interpretive Statements SINUS RHYTHM LEFT AXIS DEVIATION [QRS AXIS < -30] PATTERN CONSISTENT WITH PULMONARY DISEASE LEFT VENTRICULAR HYPERTROPHY AND ST-T CHANGE [VOLTAGE CRITERIA PLUS ST/T ABNORMALITY] Compared to ECG 04/15/2025 12:25:00 Left ventricular hypertrophy now present ST (T wave) deviation now present Incomplete right bundle-branch block no longer present T-wave abnormality no longer present Possible ischemia no longer present Electronically Signed On 04-16-2025 20:16:39 CDT by RADHA PURVIS [email or web address]
--- NOTE | 2025-04-15 14:05 | PC.PHAR ---
Patient states she has all her medication but has not taken most of it . She has done her Ozempic two weeks ago, her eye drops and her insulin once in a while. Patient states she has been a week clean from Meth. Patient states she knows she should take her medication , but it is so much and she is afraid that it will cause interactions..
[2025-04-15] MEDS: morphine 4 mg/mL SDV 1 mL 2 MG IVP ×3 (15:26→23:34)
[2025-04-15 18:09] LABS: Troponin 5 6HR 34.82 ng/L (0-10)
[2025-04-15 18:11] LABS: Troponin 5 6HR Delta -7.18 ng/L (0-12)
[2025-04-15] MEDS: insulin glargine 100 units/1 mL 7 UNIT SUBCUT (22:00)
[2025-04-16] VITALS (10 sets, daily range): BP systolic 154–194; BP diastolic 86–119; PULSE 77–99; RESP 16–20; TEMP 36.4–37.1; O2SAT 90–97
[2025-04-16 05:06] LABS: Hematocrit 46.0 % (36-47); Hemoglobin 15.30 g/dL (11.27-16.99); Mean Corpuscular HGB Conc 33.3 g/dL (30-55); Mean Corpuscular Hemoglobin 30.2 pg (27-33); Mean Corpuscular Volume 90.7 fl (85-98); Nucleated Red Blood Cells % 0 %; Platelet Count 316 10^3/cmm (157-399); Red Blood Count 5.07 10^6/uL (3.85-5.65); White Blood Count 9.53 10^3/uL (3.29-11.43)
[2025-04-16 05:19] LABS: Anion Gap 14.2 (5-19); Blood Urea Nitrogen 19 mg/dL (6-20); Calcium 8.4 mg/dL (8.5-10.5); Carbon Dioxide 23 mmol/L (22-29); Chloride 102 mmol/L (98-107); Creatinine Clr Calc Pharmacy 123.9999; Glucose 111 mg/dL (65-115); Osmolality Calculated 283 mOsm/kg (285-295); Potassium 4.2 mmol/L (3.5-5.1); Sodium 135 mmol/L (136-145)
[2025-04-16] MEDS: morphine 4 mg/mL SDV 1 mL 2 MG IVP ×3 (09:32→19:52)
--- NOTE | 2025-04-16 09:57 | PC.CHAP ---
Pastoral Care Encounter/Spiritual Assessment Type of Contact [] Declined new patient escort visit [] Patient/Family/Request visit [] Outpatient visit [] Follow-up visit [] Physician referral [] Code/Alert [x] Routine visit [] Staff referral [] Actively dying [] Patient sleeping [x] Family support [] [] Out of room [] Palliative care [] [] Receiving care in room [] Pre-surgical visit [] Trauma [] Long length of stay [] ICU visit [] Other: Relational/Emotional Strength [x] Patient feels connected with others/family/visitors/staff [] Distress [] Loneliness/isolation [] Abandonment Spirituality of Patient [x] Person of Celia [x] Attends Christian of their Celia [x] Believes in Prayer [x] Reads Bible or Tenriism materials [] There are Spiritual issues to be addressed Tool Programmer Interventions [x] Prayer [x] Active listening [x] Non-anxious presence [x] Spiritual/emotional support [] Crisis/trauma care [] Spiritual counseling [] Bereavement support [] Provided bereavement packet [] Provided Bible/devotional materials [] Provided toy/stuffed animal, coloring book to patient or family member [] Provided Communion [] Anointing/[place] [] Salvation [x] Completed spiritual assessment [] Other: Impact on Illness or Injury [] Angry [] Fearful [] Anxious [] Often cries [] Exhaustion [] Unable to work [] Unable to attend yazidi [] Unable to walk/stand [] Unable to read [] Unable to drive [] Unable to eat/drink [] Unable to sleep [] Unable to be with family [] Patient intubated [] Other: Summary Time spent with patient 5 min
--- NOTE | 2025-04-16 13:29 | P.PN_ITS ---
Subjective 2 Subjective: tolerating clears, no BM as yet. Vitals/I&O/Wt Last Vital Signs Temp 98.7 F 04/16/25 11:12 Pulse 77 04/16/25 11:12 Resp 18 04/16/25 11:12 BP 186/119 04/16/25 11:12 Pulse Ox 93 04/16/25 11:12 O2 Del Method Room Air 04/16/25 11:12 04/15/25 04/16/25 04/16/25 22:59 06:59 14:59 Intake Total 1000 / 1000 953.75 / 1953.75 1360 / 1360 Output Total 350 / 350 Balance 650 / 650 953.75 / 1603.75 1360 / 1360 Weight last 48 hrs Weight 99.79 kg Weight 101.151 kg Weight 90.718 kg Physical Exam 2 Const: COMMON NORMALS: patient oriented x3 and no limitations NUTRITIONAL APPEARANCE: obese HENMT: COMMON NORMALS: normocephalic and atraumatic HEAD & SCALP: n ormocephalic and atraumatic OTHER: NGT present Eye: COMMON NORMALS: Equal, round and reactive pupils present PUPIL: Yes Equal, round and reactive pupils present Neck/C-Spine: COMMON NORMALS: supple Resp: COMMON NORMALS: normal respiratory effort, No retractions and clear to auscultation bilaterally AUSCULTATION: clear to auscultation bilaterally Cardio: COMMON NORMALS: regular rate, regular rhythm, No gallops present (Cardio), No murmurs present (Cardio) and No rub (Cardio) RATE: regular rate RHYTHM: regular rhythm GI: OTHER: Tenderness to palpation in RUQ with interval improvement. Extremity: GENERAL: Yes edema (BL LE) Neuro: COMMON NORMALS: patient oriented x3 and CN's II-XII intact bilaterally Psych: COMMON NORMALS: mental status grossly normal, Normal thought process present and normal affect THOUGHT PROCESS: Normal thought process present Skin: COMMON NORMALS: no rashes or lesions noted GENERAL SKIN EXAM: no rashes or lesions noted Data 04/16/25 04:08 04/16/25 04:08 A&P Assessment and plan 1. Small bowel obstruction: 2. SANDRA treated with BiPAP: 3. Diabetes mellitus type 2 with neurological manifestations: Plan: 55 year old female presenting with partial SBO. Partial SBO - CT ab/pelvis with partial SBO, no high grade obstruction - NGT placed in ER, removed overnight by accident, monitored out and advanced diet. - cont. IV fluids. - advance diet further if she is able to have BM - IV pain control for now. 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 SANDRA Obesity - home CPAP, adjust to home settings. - hold home lasix for now. Diet: NPO PPx: SCDs, no AC for SBO in case of nonresolution. Hold home eliquis Disposition - OK to walk patient, PT consulted. - Advance diet as tolerated, may be able to D/C soon if she is having BM and tolerating diet. PDMP PDMP Reviewed: Not Reviewed Attestations 2 Medical Necessity Statement*: ongoing inpatient for SBO Time Spent in Patient Care: 16 - 35 minutes (>than 50% of time sp ent in counselling and/or direct pt care on unit) . Coding Level of Care Code Acute Code for Chg Fwd Diagnoses Small bowel obstruction K56.609 SANDRA treated with BiPAP G47.33 Diabetes mellitus type 2 with neurological manifestations E11.49
[2025-04-16] MEDS: insulin glargine 100 units/1 mL 15 UNIT SUBCUT (20:44)
[2025-04-17 04:00] VITALS: BP 160/98; PULSE 84; RESP 17; TEMP 36.8; O2SAT 96
[2025-04-17 04:35] LABS: Hematocrit 44.6 % (36-47); Hemoglobin 15.20 g/dL (11.27-16.99); Mean Corpuscular HGB Conc 34.1 g/dL (30-55); Mean Corpuscular Hemoglobin 30.7 pg (27-33); Mean Corpuscular Volume 90.1 fl (85-98); Nucleated Red Blood Cells % 0 %; Platelet Count 275 10^3/cmm (157-399); Red Blood Count 4.95 10^6/uL (3.85-5.65); White Blood Count 7.57 10^3/uL (3.29-11.43)
[2025-04-17 04:58] LABS: Anion Gap 14.1 (5-19); Blood Urea Nitrogen 10 mg/dL (6-20); Calcium 8.6 mg/dL (8.5-10.5); Carbon Dioxide 26 mmol/L (22-29); Chloride 105 mmol/L (98-107); Creatinine Clr Calc Pharmacy 147.6945; Glucose 98 mg/dL (65-115); Osmolality Calculated 291 mOsm/kg (285-295); Potassium 4.1 mmol/L (3.5-5.1); Sodium 141 mmol/L (136-145)
[2025-04-17 07:28] VITALS: BP 174/108; PULSE 72; RESP 18; TEMP 36.6; O2SAT 94
[2025-04-17] MEDS: morphine 4 mg/mL SDV 1 mL 2 MG IVP (08:16)
--- OUTSIDE RECORDS SUMMARY | 2025-04-17 09:31 | XMS_ITS | Clinical Summary ---
Author Organization [facility] Address [address] [place] [address] Care Team Providers Care Community Support Professional Name Role Phone Jace Gonzalez MD Primary Care Provider [phone] Allergies Active Allergy Reactions Criticality Noted Date Comments Duloxetine Other (See Comments) 11/02/2020 Malicious Iodine Swelling Low 01/06/2012 Quetiapine Other (See Comments) 11/02/2020 Knocked me out for 2 days Shellfish Containing Products Anaphylaxis High 06/22/2024 Throat swells Medications ProAir HFA 90 mcg/actuation inhaler INHALE TWO PUFFS BY MOUTH EVERY 4 HOURS NEEDED FOR SHORTNESS OF BREATH OR WHEEZING 04/29/20 22 Active OneTouch Ultra Test Strip USE DIRECTED CHECK BLOOD SUGAR TWICE DAILY 04/29/20 22 Active Blood-Glucose Meter Use as directed to check blood sugars 11/09/19 21 Active latanoprost (XALATAN) 0.005 % solution instill 1 drop IN EACH EYE EVERY NIGHT 05/11/20 22 Active Insulin Loyal, Disposable, 31 gauge x 5/16 Needle Use to inject insulin. 11/09/19 21 Active brimonidine (ALPHAGAN) 0.2 % solution INSTILL ONE DROP IN EACH EYE TWICE DAILY 05/20/20 24 Active buPROPion HCL (WELLBUTRIN SR) 150 mg Sustained Release 12 hour tabletIndications: Moderate episode of recurrent major depressive disorder (CMS/HCC),Bipolar 2 disorder (CMS/HCC) Take 1 Tablet (150 mg) by mouth daily. 100 Tablet 3 05/29/20 24 Active carvediloL (COREG) 25 mg tabletIndications: Chronic combined systolic and diastolic congestive heart failure (CMS/HCC),Essentia l hypertension Take 1 Tablet (25 mg) by mouth 2 times daily with meals. 200 Tablet 05/29/20 Active Eliquis 5 mg tabletIndications: Chronic combined systolic and diastolic congestive heart failure (CMS/HCC),Hx of blood clots Take 1 Tablet (5 mg) by mouth 2 times daily. 200 Tablet 05/29/20 Active furosemide (LASIX) 20 mg tabletIndications: Chronic combined systolic and diastolic congestive heart failure (CMS/HCC) Take 1 Tablet (20 mg) by mouth daily. 100 Tablet 05/29/20 Active gabapentin (NEURONTIN) 300 mg capsuleIndications :Fibromyalgia Take 1 Capsule (300 mg) by mouth 3 times daily. 270 Capsule 05/29/20 Active isosorbide mononitrate (IMDUR) 60 mg Extended Release 24 hour tabletIndications: Essential hypertension,Other chest pain Take 1 Tablet (60 mg) by mouth daily. 100 Tablet 05/29/20 Active Januvia 100 mg TabletIndications: Type 2 diabetes mellitus with hyperglycemia, with long-term current use of insulin ([facility]) Take 1 Tablet (100 mg) by mouth daily with breakfast. 100 Tablet 05/29/20 Active metFORMIN (GLUCOPHAGE) 1,000 mg tabletIndications: Type 2 diabetes mellitus with hyperglycemia, with long-term current use of insulin ([facility]) Take 1 Tablet (1,000 mg) by mouth 2 times daily with meals. 200 Tablet 05/29/20 Active topiramate (TOPAMAX) 50 mg tabletIndications: Chronic daily headache Take 1 Tablet (50 mg) by mouth daily. 90 Tablet 05/29/20 Active NovoLOG Flexpen U-100 Insulin 100 unit/mL (3 mL) pen syringeIndications :Type 2 diabetes mellitus with hyperglycemia, with long-term current use of insulin ([facility]) Medium-dose Regimen Insulin Sliding Scale before lunch and dinner. 3 units subcutaneously for fingerstick blood glucose 120-160 milligram/decilit er 5 units subcutaneously for fingerstick blood glucose 161-200 milligram/decilit er 8 units subcutaneously for fingerstick blood glucose 201-240 milligram/decilit er 12 units subcutaneously for fingerstick blood glucose 241-280 milligram/decilit er 16 units subcutaneously for fingerstick blood glucose 281-320 milligram/decilit er 20 units subcutaneously for fingerstick blood glucose > 321 milligram/decilit er 3 mL 3 06/05/20 24 Active semaglutide (Ozempic) 0.25 mg or 0.5 mg (2 mg/3 mL) Pen InjectorIndication s:Type 2 diabetes mellitus with hyperglycemia, with long-term current use of insulin ([facility]) Inject 0.5 mg by subcutaneous injection every 7 days. 9 mL 3 06/25/20 24 Active Jardiance 25 mg tabletIndications: Type 2 diabetes mellitus with hyperglycemia, with long-term current use of insulin ([facility]),Chronic combined systolic and diastolic congestive heart failure ([facility]) Take 1 Tablet (25 mg) by mouth daily in the morning. 100 Tablet 3 08/01/20 24 Active Blood-Glucose Meter,Continuous (Dexcom G7 Documentation Spec)Indicatio ns:Type 2 diabetes mellitus with hyperglycemia, with long-term current use of insulin ([facility]) To continuously monitor blood glucose 1 Each 08/09/20 24 Active Blood-Glucose Sensor (Dexcom G7 Sensor) DeviceIndications: Type 2 diabetes mellitus with hyperglycemia, with long-term current use of insulin ([facility]) Change sensor every 10 days. Use to continuously monitor blood sugar. 3 Each 6 08/09/20 24 Active atorvastatin (LIPITOR) 40 mg tabletIndications: Mixed hyperlipidemia TAKE 1 TABLET BY MOUTH DAILY 100 Tablet 1 10/15/19 25 Active Lantus Solostar U-100 Insulin 100 unit/mL (3 mL) solution for injectionIndicatio ns:Type 2 diabetes mellitus with hyperglycemia, with long-term current use of insulin ([facility]) INJECT 12 UNITS SUBCUTANEOUSLY DAILY AT BEDTIME 15 mL 01/31/20 25 Active celecoxib (CeleBREX) 200 mg capsuleIndications :Chronic pain syndrome Take 1 Capsule (200 mg) by mouth 2 times daily. 200 Capsule 1 02/08/20 25 Active Active Problems Problem Noted Date Diagnosed Date Simple chronic bronchitis 05/25/2024 Morbid obesity with body mass index (BMI) of 40. 0 or higher 05/25/2024 SANDRA (obstructive sleep apnea) 05/25/2024 Fibromyalgia 05/25/2024 Chronic pain syndrome 05/25/2024 Essential hypertension 11/18/2020 LV (left ventricular) mural thrombus 11/04/2020 Type 2 diabetes mellitus with hyperglycemia 09/2020 Hyponatremia 11/03/2020 Other ventral hernia without mention of obstruction or gangrene 01/06/2012 Resolved Problems Problem Noted Date Diagnosed Date Resolved Date Substance abuse 11/18/2020 05/25/2024 Acute on chronic combined sy stolic and diastolic congestive heart failure 11/04/202005/25 Hypertensive emergency 11/03/202005/25 Hypertensive urgency 024 Encounters Date Type Department Care Team Description 03/25/[address] [place] [address] Jace Gonzalez MD Needs Appointment 03/21/2025 Patient Outreach [address] [address] Jace Gonzalez MD Primary Care Outreach 03/20/2025 External Device Data ST[facility] ABSTRACTION Provider, Abstract 03/20/2025 External Device Data [facility] ABSTRACTION Provider, Abstract 03/19/2025 Patient Outreach [address] [address] Jace Gonzalez MD Primary Care Outreach 03/12/2025 External Device Data [place] ABSTRACTION Provider, Abstract 03/05/2025 External Device Data [place] ABSTRACTION Provider, Abstract 03/05/2025 External Device Data [place] ABSTRACTION Provider, Abstract 02/07/[address] [place] [address] Jace Gonzalez MD Chronic pain syndrome 02/06/2025 External Device Data [place] ABSTRACTION Provider, Abstract 02/05/2025 External Device Data [facility] ABSTRACTION Provider, Abstract 01/30/[address] [place] [address] Ying, Kenzie Butler, SOFTWARE ENGINEERING PROJECT MANAGER Type 2 diabetes mellitus with hyperglycemia, with long-term current use of insulin ([facility]) 01/30/2025 Refill [facility] [address] [facility] [address] [place] [address] Kenzie He, NIESHA Type 2 diabetes mellitus with hyperglycemia, with long-term current use of insulin ([facility]) 01/23/2025 External Device Data STL ABSTRACTION Provider, Abstract 01/22/2025 External Device Data STL ABSTRACTION Provider, Abstract from Last 3 Months Immunizations Immunization Administration Dates Next Due (PNEUMOVAX 23)(50 YRS UP) PN EUMOCOCCAL POLYSACCHARIDE (PPV23) 0.5 ML, IM 01/17/2012 Family History Medical History Relation Name Comments Healthy Brother 1 Healthy Brother 2 Healthy Daughter 1 Healthy Daughter 2 Healthy Daughter 3 Healthy Father Healthy Maternal Grandfather Ovarian Cancer Maternal Grandmother Healthy Mother Healthy Paternal Grandmother Healthy Son Relation Name Status Comments Brother 1 Alive Brother 2 Alive Daughter 1 Alive Daughter 2 Alive Daughter 3 Alive Father Maternal Grandfather Maternal Grandmother Mother Alive Paternal Grandfather Paternal Grandmother Son Alive Social History Tobacco Use Types Packs/Day Years Used Date Smoking Tobacco: Never Smokeless Tobacco: Never Tobacco Cessation:Counseling Given: No Alcohol Use Standard Drinks/Week Comments No 0 (1 standard drink = 0.6 oz pur e alcohol) Comments No Sex and Gender Information Value Date Recorded Sex Assigned at Not on file 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 Gender Identity Not on file Sexual Orientation Not on file Last Filed Vital Signs Vital Sign Reading Time Taken Comments Blood Pressure 134/94 06/25/2024 8:52 AM CDT Pulse 75 06/25/2024 8:50 AM CDT Temperature 36.5 C (97.7 F) 06/25/2024 8:50 AM CDT Respiratory Rate 20 06/25/2024 8:50 AM CDT Oxygen Saturation 97% 06/25/2024 8:50 AM CDT Inhaled Oxygen Concentration - - Weight 108.3 kg (238 lb 12.8 oz) 06/25/2024 8:50 AM CDT Height 162.6 cm (5' 4 ) 06/25/2024 8:50 AM CDT Body Mass Index 40.99 06/25/2024 8:50 AM CDT Plan of Treatment Health Maintenance Due Date Last Done Comments DIABETES ANNUAL RETINAL EXAM 1989 FIT/FOBT Q 1 YEAR (AUTO ORDER) 1989 DTAP/TDAP/TD VACCINES (1 - Tdap) 1990 HEPATITIS B VACCINES (1 of 3 - 19+ 3-dose series) 1990 HPV/Cotest (21-29) 02/05/1992 CERVICAL CANCER SCREENING 2001 HPV/Cotest (30-65) 2001 PAP SMEAR 2001 BREAST CANCER SCREENING 2011 COLORECTAL CANCER SCREENING (AUTO ORDER) 02/05/2016 COLORECTAL SCREENING 02/05/2016 FIT/FOBT Q 1 year 02/05/2016 Flex Sig/CT Colonography Q 5 years 02/05/2016 ZOSTER VACCINE (1 of 2) 2021 DIABETES: A1C (Auto Order) 08/24/202405/25, 11/03/2020, 11/03/2020 KHE eGFR (Auto Order) 09/05/2024 05/25/2024 , 11/21/2020, 11/17/2020, Additional history exists KHE uACR (Auto Order) 09/05/2024 05/25/2024 Preventative Visit- Commercial 09/05/2024 DIABETES HBA1C Q 6 MONTHS 11/22/20242023, 11/03/2020, 11/03/2020 INFLUENZA VACCINE (#1) 2025 06/25/2024 DIABETES MICROALBUMIN ANNUAL SCREEN 05/25/2025 05/25/2024 LDL CHOLESTEROL ANNUAL 05/25/2025 05/25/2024, 2020 DIABETES ANNUAL FOOT EXAM 06/25/2025 06/25/2024 Colorectal Cancer Screening 06/19/2027 FIT-DNA Q 3 years 06/19/2027 06/19/2024 FIT/ DNA Q 3 YEARS (AUTO ORDER) 06/19/2027 , 06/19/2024 Colorectal Cancer Screening (AUTO ORDER) 06/19/2029 FLEX SIG/CT COLONOGRAPHY Q 5 YEARS (AUTO ORDER) 06/19/2029 06/19/2024, 06/19/2024 Medical Devices Implanted Type Area Professional Wrestler Device Identifier Shelf Expiration Date Model / Serial / Lot Physiomesh Oval [id number] - Sna Implanted:Qty: 1 on 01/11/2012 by Luciano Weems MD Mesh N/A: Abdomen 09/04/2012 [id number] / NA / [id number] Procedures Procedure Name Priority Date/Time Associated Diagnosis Comments COLON CANCER SCREEN, STOOL DNA Routine 06/19/2024 9:00 PM CDT Encounter for colorectal cancer screening COMPREHENSIVE METABOLIC PANEL Routine 05/25/2024 2:01 PM CDT Type 2 diabetes mellitus with hyperglycemia, with long-term current use of insulin (CMS/HCC) Chronic combined systolic and diastolic congestive heart failure (CMS/HCC) Morbid obesity with body mass index (BMI) of 40.0 or higher (CMS/HCC) Essential hypertension MICROALBUMIN/CREATINI NE RATIO, RANDOM UR Routine 05/25/2024 2:01 PM CDT Type 2 diabetes mellitus with hyperglycemia, with long-term current use of insulin (CMS/HCC) LIPID PANEL Routine 05/25/2024 2:01 PM CDT Type 2 diabetes mellitus with hyperglycemia, with long-term current use of insulin (CMS/HCC) Chronic combined systolic and diastolic congestive heart failure (CMS/HCC) Morbid obesity with body mass index (BMI) of 40.0 or higher (CMS/HCC) Essential hypertension HEMOGLOBIN A1C Routine 05/25/2024 2:01 PM CDT Type 2 diabetes mellitus with hyperglycemia, with long-term current use of insulin (CMS/HCC) Chronic combined systolic and diastolic congestive heart failure (CMS/HCC) Morbid obesity with body mass index (BMI) of 40.0 or higher (CMS/HCC) Essential hypertension from Last 3 Months or Most Recently Relevant to Health Maintenance Results * COLON CANCER SCREEN, STOOL DNA (06/19/2024 9:00 PM CDT) COLOGUARD RESULT Negative Negative [email or web address] Comment: NEGATIVE TEST RESULT. A negative Cologuard result indicates a low likelihood that a colorectal cancer (CRC) or advanced adenoma (adenomatous polyps with more advanced pre-malignant features) is present. The chance that a person with a negative Cologuard test has a colorectal cancer is less than 1 in 1500 (negative predictive value >99.9%) or has an advanced adenoma is less than 5.3% (negative predictive value 94.7%). These data are based on a prospective cross-sectional study of 10,000 individuals at average risk for colorectal cancer who were screened with both Cologuard and colonoscopy. (Nina Hastings et al, N Engl J Med 2014;370(14):5153-6810) The normal value (reference range) for this assay is negative. COLOGUARD RE-SCREENING RECOMMENDATION: Periodic colorectal cancer screening is an important part of preventive healthcare for asymptomatic individuals at average risk for colorectal cancer. Following a negative Cologuard result, the [place] Cancer Society and U.S. Multi-Society Task Force screening guidelines recommend a Cologuard re-screening interval of 3 years. References: [place] [employer] Guideline for Colorectal Cancer Screening: https://www.cancer.org/cancer/dwmpf-cazotb-utlgze/qhtibsdzr-hkbyjtgtv-ogdtkew/ac s-rec ommendations.html.; Cody DK, Christy CR, Zion RuckerK, Colorectal Cancer Screening: Recommendations for Physicians and Patients from the U.S. Multi-Society Task Force on Colorectal Cancer Screening , Am J Gastroenterology 2017; 112:2652-1705. TEST DESCRIPTION: Composite algorithmic analysis of stool DNA-biomarkers with hemoglobin immunoassay. Quantitative values of individual biomarkers are not reportable and are not associated with individual biomarker result reference ranges. Cologuard is intended for colorectal cancer screening of adults of either sex, 45 years or older, who are at average-risk for colorectal cancer (CRC). Cologuard has been approved for use by the U.S. FDA. The performance of Cologuard was established in a cross sectional study of average-risk adults aged 50-84. Cologuard performance in patients ages 45 to 49 years was estimated by sub-group analysis of near-age groups. Colonoscopies performed for a positive result may find as the most clinically significant lesion: colorectal cancer [4.0%], advanced adenoma (including sessile serrated polyps greater than or equal to 1cm diameter) [20%] or non- advanced adenoma [31%]; or no colorectal neoplasia [45%]. These estimates are derived from a prospective cross-sectional screening study of 10,000 individuals at average risk for colorectal cancer who were screened with both Cologuard and colonoscopy. (Nina Todd al, N Engl J Med 2014;370(14):0888-4752.) Cologuard may produce a false negative or false positive result (no colorectal cancer or precancerous polyp present at colonoscopy follow up). A negative Cologuard test result does not guarantee the absence of CRC or advanced adenoma (pre-cancer). The current Cologuard screening interval is every 3 years. ([place] Cancer Society and U.S. Multi-Society Task Force). Cologuard performance data in a 10,000 patient pivotal study using colonoscopy as the reference method can be accessed at the following location: www.[employer]/results. Additional description of the Cologuard test process, warnings and precautions can be found at www.[employer]sbridgerd.C[employer]Star. Stool STOOL SPECIMEN / Unknown 06/19/2024 9:00 PM CDT 06/21/2024 6:09 PM CDT Kenzie Butler Ying SOFTWARE ENGINEERING PROJECT MANAGER BODY FLUIDS AND STOOLS F inal Result [facility] CLIA # [id number] [address] , [address] [place] [address] * (ABNORMAL) MICROALBUMIN/CREATININE RATIO, RANDOM UR (05/25/2024 2:01 PM CDT) Creatinine, Urine 121 20 - 275 mg/dL [facility] MICROALBUMIN, URINE 112.0 See Note: mg/dL [facility] Comment: Reference Range: Reference Range Not established Results verified by repeat analysis on dilution. MICROALBUMIN/CREAT RATIO, UR 926(H) <30 mg/g creat [facility] Comment: The ADA defines abnormalities in albumin excretion as follows: Albuminuria Category Result (mg/g creatinine) Normal to Mildly increased <30 Moderately increased 30-299 Severely increased > OR = 300 The ADA recommends that at least two of three specimens collected within a 3-6 month period be abnormal before considering a patient to be within a diagnostic category. Test Performed at: [facility] [address] [address] Ada Pulliam MD Urine URINE SPECIMEN OBTAINED BY CLEAN CATCH PROCEDURE / Unknown 05/25/2024 2:01 PM CDT 05/26/2024 6:35 AM CDT Kenzie He SOFTWARE ENGINEERING PROJECT MANAGER URINE ORDERABLES Final R esult [facility] [phone] [facility] [address] [address] * (ABNORMAL) HEMOGLOBIN A1C (05/25/2024 2:01 PM CDT) HEMOGLOBIN A1C 10.6(H) <5.7 % of total Hgb [facility] Comment: For someone without known diabetes, a hemoglobin A1c value of 6.5% or greater indicates that they may have diabetes and this should be confirmed with a follow-up test. For someone with known diabetes, a value <7% indicates that their diabetes is well controlled and a value greater than or equal to 7% indicates suboptimal control. A1c targets should be individualized based on duration of diabetes, age, comorbid conditions, and other considerations. Currently, no consensus exists regarding use of hemoglobin A1c for diagnosis of diabetes for children. ESTIMATED AVERAGE GLUCOSE (MG/DL) 258 mg/dL [facility] ESTIMATED AVERAGE GLUCOSE (MMOL/L) 14.3 mmol/L [facility] Comment: This test was performed on the Parker abel c503 platform. Effective 11/21/23, a change in test platforms from the Randhawa Cloth Painter to the Parker abel c503 may have shifted HbA1c results compared to historical results. Based on laboratory validation testing conducted at [facility], the Parker platform relative to the Randhawa platform had an average increase in HbA1c value of < or = 0.3%. This difference is within accepted variability established by the National Glycohemoglobin Standardization Program. Note that not all individuals will have had a shift in their results and direct comparisons between historical and current results for testing conducted on different platforms is not recommended. Test Performed at: [facility] [address] [facility] [place] [address] Ada Pulliam MD Blood 05/25/2024 2:01 PM CDT 05/26/2024 4:26 AM CDT Kenzie He SOFTWARE ENGINEERING PROJECT MANAGER CHEMISTRY ORDERABLES Fin al Result [facility] [phone] [facility] [address] [facility] [address] * (ABNORMAL) LIPID PANEL (05/25/2024 2:01 PM CDT) CHOLESTEROL 368(H) <200 mg/dL [facility] HDL 61 > OR = 50 mg/dL [facility] TRIGLYCERIDE 345(H) <150 mg/dL [facility] Comment: If a non-fasting specimen was collected, consider repeat triglyceride testing on a fasting specimen if clinically indicated. Estephania et al. J. of Clin. Lipidol. 2015;9:129-169. LDL CALCULATED 249(H) mg/dL (calc) [facility] Comment: LDL-C levels > or = 190 mg/dL may indicate familial hypercholesterolemia (FH). Clinical assessment and measurement of blood lipid levels should be considered for all first degree relatives of patients with an FH diagnosis. LDL Cholesterol (LDL-C) levels > or = 300 mg/dL may indicate homozygous familial hypercholesterolemia (HoFH). Untreated, these extremely high LDL-C levels can result in premature CV events and mortality. Patients should be identified early and provided appropriate interventions to reduce the cumulative LDL-C burden from . For questions about testing for familial hypercholesterolemia, please call [facility] at [phone].GENE.INFO. Estephania Escobedo, et al. J National Lipid Association Recommendations for Patient-Centered Management of Dyslipidemia: Part 1 Journal of Clinical Lipidology 2015;9(2), 129-169. Jimbo Vitale et al. (2014). Homozygous familial hypercholesterolaemia: new insights and guidance for clinicians to improve detection and clinical management. Heart Journal, 35(32), 4824-0170. Reference range: <100 Desirable range <100 mg/dL for primary prevention; <70 mg/dL for patients with CHD or diabetic patients with > or = 2 CHD risk factors. LDL-C is now calculated using the Patricia calculation, which is a validated novel method providing better accuracy than the Friedewald equation in the estimation of LDL-C. Arthur ROMERO et al. CASA. 2013;310(19): 4253-0445 (http://education.Parkya/faq/WHH802) CHOL/HDL RATIO 6.0(H) <5.0 (calc) [facility] NON-HDL CHOLESTEROL 307(H) <130 mg/dL (calc) [facility] Comment: Non-HDL level > or = 220 is very high and may indicate genetic familial hypercholesterolemia (FH). Clinical assessment and measurement of blood lipid levels should be considered for all first-degree relatives of patients with an FH diagnosis. For patients with diabetes plus 1 major ASCVD risk factor, treating to a non-HDL-C goal of <100 mg/dL (LDL-C of <70 mg/dL) is considered a therapeutic option. Test Performed at: [facility] [address] [place] [address] Ada Pulliam MD Blood 05/25/2024 2:01 PM CDT 05/26/2024 4:26 AM CDT Kenzie He [facility] CHEMISTRY ORDERABLES Fin al Result [facility] [phone] [facility] [address] [place] [address] * (ABNORMAL) COMPREHENSIVE METABOLIC PANEL (05/25/2024 2:01 PM CDT) GLUCOSE 198(H) 65 - 99 mg/dL [facility] Comment: Fasting reference interval For someone without known diabetes, a glucose value >125 mg/dL indicates that they may have diabetes and this should be confirmed with a follow-up test. BUN 28(H) 7 - 25 mg/dL [facility] CREATININE 0.76 0.50 - 1.03 mg/dL [facility] GFR 94 > OR = 60 mL/min/1.7 3m2 [facility] BUN/CREAT RATIO 37(H) 6 - 22 (calc) [facility] SODIUM 138 135 - 146 mmol/L [facility] POTASSIUM 4.6 3.5 - 5.3 mmol/L [facility] CHLORIDE 102 98 - 110 mmol/L [facility] CO2 28 20 - 32 mmol/L [facility] CALCIUM 9.6 8.6 - 10.4 mg/dL [facility] TOTAL PROTEIN 7.7 6.1 - 8.1 g/dL [facility] ALBUMIN 4.2 3.6 - 5.1 g/dL [facility] GLOBULIN 3.5 1.9 - 3.7 g/dL (calc) [facility] ALBUMIN/GLOBULIN RATIO 1.2 1.0 - 2.5 (calc) [facility] BILIRUBIN TOTAL 0.5 0.2 - 1.2 mg/dL [facility] ALKALINE PHOSPHATASE 81 37 - 153 U/L [facility] AST 17 10 - 35 U/L [facility] ALT 22 6 - 29 U/L [facility] Comment: Test Performed at: [facility] [address] Ada Pulliam MD Blood 05/25/2024 2:01 PM CDT 05/26/2024 4:26 AM CDT Kenzie Larkins SOFTWARE ENGINEERING PROJECT MANAGER CHEMISTRY ORDERABLES Fin al Result [facility] [phone] [employer] [address] [place] [address] from Last 3 Months or Most Recently Relevant to Health Maintenance Insurance RX INFOCROSSING Medicaid RX WETZEL PLANS (INTERNAL) [facility] DIS[facility] DETERMINATION Care Teams Community Support Professional Relationship Specialty Start Date End Date Jace Gonzalez MD [address] [address] PCP - General Family Practice 05/25/24
--- OUTSIDE RECORDS SUMMARY | 2025-04-17 09:31 | XMS_ITS | Patient Health Record ---
Author Organization [facility] Address [address] [place] [address] Care Team Providers Care Building Equipment Operator Name Role Phone Anderson Salazar Unavailable [phone] Reason For Referral No Information Medications Medication SIG (Take, Route, Frequency, Duration) Notes Start Date End Date Status HYDROcodone-Acetamin ophen 7.5-325 MG Tablet one tab po q 4 hrs prn pain Oral; Duration: 30 Hydrocodone/Acetamin ophen 7.5mg/325mg Tablet one tab po q 4 hrs prn pain 02/27/2014 Active Metoprolol Succinate ER 100 MG Tablet Extended Release 24 Hour Take 1 tablet(s) by mouth daily Oral; Duration: 30 Metoprolol 100mg Tablets, Extended Release Take 1 tablet(s) by mouth daily #30 (Thirty) tablet(s) 01/24/2014 Active Levothyroxine Sodium Take 1 capsule(s) by mouth daily before breakfast.; Duration: 30 *please review for potential update for e-prescription and drug interaction check* Levothyroxine Sodium 25mcg Capsules Take 1 capsule(s) by mouth daily before breakfast. #30 (Thirty) capsule(s) 02/27/2014 Active Enalapril Maleate 5 MG Tablet Take 1 tablet(s) by mouth daily Oral; Duration: 30 Enalapril Maleate 5mg Tablet Take 1 tablet(s) by mouth daily #30 (Thirty) tablet(s) 01/24/2014 Active Naproxen 500 MG Tablet Take 1 tablet by mouth every 12 hours as needed Oral; Duration: 30 Naproxen 500mg Tablet Take 1 tablet by mouth every 12 hours as needed 02/27/2014 Active Glimepiride 1 MG Tablet 1 tab(s) po qam Oral; Duration: 30 Glimepiride 1mg Tablet 1 tab(s) po qam #30 (Thirty) tablet(s) 02/27/2014 Active Simvastatin 40 MG Tablet Take 1 tablet(s) by mouth at bedtime Oral; Duration: 30 Simvastatin 40mg Tablet Take 1 tablet(s) by mouth at bedtime #30 (Thirty) tablet(s) 02/27/2014 Active metFORMIN HCl Take 1 tablet(s) by mouth daily with supper; Duration: 30 *please review for potential update for e-prescription and drug interaction check* Metformin HCl 1,000mg Tablets, Extended Release Take 1 tablet(s) by mouth daily with supper #30 (Thirty) tablet(s) 06/21/2012 Active Proventil HFA 108 (90 Base) MCG/ACT Aerosol Solution Inhale 2 puff(s) by mouth q 4 to 6 hr Inhalation; Duration: 30 Proventil HFA (Albuterol) 90mcg/1actuation Oral Inhaler Inhale 2 puff(s) by mouth q 4 to 6 hr #1 (One) 6.7 gm inhaler 04/07/2012 Active Social History Social History Additional Details Category Social Info Options Details zzMigrated Social History Migrated Social History Highest Level of Education High School Education (9-12) Completed 11th grade only Marital Status: Children: 4 children Problems Problem Type SNOMED Code ICD Code Onset Dates Problem Status W/U Status Risk Notes Problem Type II diabetes mellitus uncontrolled (219308038) NIDDM, uncontrolled (250.02) 2013 Active confirmed [id number]- Problem 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) 2013 Active confirmed [id number]-[id number]- Problem Chronic pain syndrom e (539787414) Chronic pain syndrome (338.4) 2013 Problem resolved confirmed [id number]- Problem Wheezing (37351183) Wheezing (786.07) 2011 Problem resolved confirmed [id number]-[id number]- Problem Cough (43875393) Cough (786.2) 2011 Problem resolved confirmed [id number]-[id number]- Problem Generalized abdomina l pain (896794761) Abdominal pain, generalized (789.07) 2010 Problem resolved confirmed [id number]-[id number]- Problem Generalized anxiety disorder (93218761) Anxiety, generalized (300.02) 2009 Problem resolved confirmed [id number]-[id number]- Problem Sleep apnea (83832076) Sleep apnea (780.57) 2009 Problem resolved confirmed [id number]-[id number]- Problem Fibromyalgia (224056401) Fibromyalgia (729.1) 2009 Problem resolved confirmed [id number][id number]- Problem Headache (19905868) Headache (307.81) 2009 Problem resolved confirmed [id number][id number]- Problem Hypercholesterolemia (63405069) Hypercholesterolemia (272.0) 2013 Problem resolved confirmed [id number]-[id number]- Problem Shoulder pain (63613986) Shoulder pain (719.41) 2010 Problem resolved confirmed [id number]-[id number]- Problem 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 Problem resolved confirmed [facility]-[id number]- Problem Screening for breast cancer (957988752) Screening for breast cancer (V76.10) 2013 Problem resolved confirmed [id number]-[id number]- Problem Allergic rhinitis du e to allergen (05140492) Allergic rhinitis, other allergen-induced, NEC (477.8) 2014 Problem resolved confirmed [id number]-[id number]- Problem Sore throat (048105076) Sore Throat (462) 2010 Problem resolved confirmed [id number][id number]- Problem Chest pain (78341816) Chest pain (786.51) 2013 Problem resolved confirmed [facility]-[id number]- Problem Generalized abdomina l pain (742294506) Generalized abdominal pain (789.07) 2012 Problem resolved confirmed [id number][id number]- Problem Intolerant of heat (11608303) Heat intolerance (780.99) 2011 Problem resolved confirmed [id number]-[id number]- Problem Impaired fasting glycaemia (946028676) Elevated fasting glucose (790.21) 2011 Problem resolved confirmed [id number][id number]- Problem Insomnia (838645811) Insomnia (307.41) 2013 Problem resolved confirmed [id number][id number]- Problem Abdominal pain (54912856) Abdominal pain (789.09) 2011 Problem resolved confirmed [id number]-[id number]- Problem Anxiety state (221336483) Situational stress with anxiety (300.09) 2013 Problem resolved confirmed [id number][id number]- Problem Electrocardiogram abnormal (555513514) Abnormal EKG (794.31) 2011 Problem resolved confirmed [id number]-[id number]- Problem Obstructive sleep apnea (83599677) Obstructive sleep apnea (780.57) 2013 Problem resolved confirmed [id number]-[id number]- Problem Thyroid function tests abnormal (821285522) Abnormal thyroid findings (794.5) 2013 Problem resolved confirmed [id number]-[id number]- Problem Anxiety (08587993) Anxiety (300.02) 08/27 Problem resolved confirmed [facility]-[id number]- Problem Migraine with aura (8377883) Classic migraine (346.00) 2014 Problem resolved confirmed [facility]98 [id number]- Problem Closed fracture of distal phalanx of finger (84026768) Closed fracture of distal finger (816.02) 2011 Problem resolved confirmed [id number]-[id number]- Problem Urinary tract infection (44610000) Urinary tract infection (595.0) 2018 Problem resolved confirmed [facility]-98 [id number]- Problem Central obesity (668843132) Central obesity (278.1) 2009 Problem resolved confirmed [facility]98 [id number]- Problem Left ventricular hypertrophy (27745599) LVH (429.3) 2011 Problem resolved confirmed [facility][id number]- Problem Incisional hernia (491313226) Ventral hernia, incisional (553.21) 2010 Problem resolved confirmed [facility][id number] [id number]- Problem Chest discomfort (601725738) Chest discomfort (786.59) 2013 Problem resolved confirmed [facility]98 [id number]- Problem Wrist pain (90188767) Wrist pain (719.43) 2011 Problem resolved confirmed [facility]98 [id number]- Problem Essential hypertension (81490922) Essential hypertension (401.1) 2009 Problem resolved confirmed [facility]98 [id number]- Problem Type II diabetes mellitus without complication (534619734) NIDDM (250.00) 2009 Problem resolved confirmed [facility]-98 [id number]- Problem Thoracic back pain (242550990) Upper back pain (724.5) 2018 Problem resolved confirmed [facility]98 [id number]- Plan Of Treatment No Information Medical (General) History Surgical History Surgery Date(Month/Year) CholecystectomyHysterectomy section: X 2; Hernia Repair: 2001; umbilical;
[2025-04-17 11:15] VITALS: BP 189/110; PULSE 70; RESP 20; TEMP 36.6; O2SAT 96
--- NOTE | 2025-04-17 13:20 | PM.DCS ---
Discharge Providers Date of Admission: 04/15/25 14:38 Date of Discharge: April 17, 2025 Attending Provider at Admission: Emeterio Langston MD Attending Provider at Discharge: Emeterio Langston MD Primary Care Provider: Ave Reyes, Diagnoses at Discharge Discharge Diagnosis 1. Small bowel obstruction: 2. SANDRA treated with BiPAP: 3. Diabetes mellitus type 2 with neurological manifestations: Reason for Visit Reason for Visit: abdominal pain, N/V. Brief History: 55 year old female presenting with partial SBO. Hospital Course Hospital Course Partial SBO - CT ab/pelvis with partial SBO, no high grade obstruction - NGT placed in ER, removed later in the evening by accident, monitored without NGT and advanced diet. - cont. IV fluids inpatient. - advanced to regular diet, having BM. - IV pain control for now. - RUQ pain improving, surgically absent GB. - no nausea. 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 SANDRA Obesity - home CPAP, adjust to home settings. - hold home lasix for now. Diet: advanced to regular. PPx: SCDs, no AC for SBO in case of nonresolution. Hold home eliquis, restart on D/C Disposition - patient reporting BM, tolerating regular diet without nause or pain. - dishcarge planning for today. Physical Exam Const: COMMON NORMALS: patient oriented x3 and no limitations NUTRITIONAL APPEARANCE: obese HENMT: COMMON NORMALS: normocephalic and atraumatic HEAD & SCALP: normocephalic and atraumatic OTHER: NGT present Eye: COMMON NORMALS: Equal, round and reactive pupils present PUPIL: Yes Equal, round and reactive pupils present Neck/C-Spine: COMMON NORMALS: supple Resp: COMMON NORMALS: normal respiratory effort, No retractions and clear to auscultation bilaterally AUSCULTATION: clear to auscultation bilaterally Cardio: COMMON NORMALS: regular rate, regular rhythm, No gallops present (Cardio), No murmurs present (Cardio) and No rub (Cardio) RATE: regular rate RHYTHM: regular rhythm GI: OTHER: Tenderness to palpation in RUQ with interval improvement. Extremity: GENERAL: Yes edema (BL LE) Neuro: COMMON NORMALS: patient oriented x3 and CN's II-XII intact bilaterally Psych: COMMON NORMALS: mental status grossly normal, Normal thought process present and normal affect THOUGHT PROCESS: Normal thought process present Skin: COMMON NORMALS: no rashes or lesions noted GENERAL SKIN EXAM: no rashes or lesions noted Discharge Data Studies Completed and Pending Completed Studies During Hospitalization Category Date Time Status CT abdomen pelvis w con* [id number] Stat Cat Scan 04/15/25 10:28 Completed XR chest 1V portable [id number] Stat Exams 04/15/25 10:12 Completed XR chest 1V portable [id number] Stat Exams 04/15/25 12:58 Completed Radiology Impressions Abdomen/Pelvis CT 04/15/25 10:28 IMPRESSION: 1. Few dilated loops of fluid-filled small bowel in the LEFT upper quadrant mid abdomen some with enhancement suspicious for small bowel enteritis versus partial small bowel obstruction. Persistent air within the colon. No high-grade obstruction. 2. Evidence of prominent gastritis and duodenitis with esophagitis. 3. Prior cholecystectomy and hysterectomy. 4. Air distended transverse colon likely due to adynamic ileus 5. No other acute findings. Chest X-Ray 04/15/25 12:58 IMPRESSION: 1. No acute cardiopulmonary process. 2. Esophagogastric tube is present with the tip in the stomach. Laboratory Results WBC 7.57 10^3/uL (3.29-11.43) 04/17/25 04:11 RBC 4.95 10^6/uL (3.85-5.65) 04/17/25 04:11 Hgb 15.20 g/dL (11.27-16.99) 04/17/25 04:11 Hct 44.6 % (36-47) 04/17/25 04:11 MCV 90.1 fl (85-98) 04/17/25 04:11 MCH 30.7 pg (27-33) 04/17/25 04:11 MCHC 34.1 g/dL (30-55) 04/17/25 04:11 RDW 12.8 % (12.1-15.1) 04/17/25 04:11 Plt Count 275 10^3/cmm (157-399) 04/17/25 04:11 MPV 9.9 fL (7.4-10.4) 04/17/25 04:11 Neut % (Auto) 50.8 % 04/17/25 04:11 Lymph % (Auto) 33.3 % 04/17/25 04:11 Coal % (Auto) 9.5 % 04/17/25 04:11 Eos % (Auto) 5.4 % 04/17/25 04:11 Baso % (Auto) 0.7 % 04/17/25 04:11 Neut # (Auto) 3.85 10^3/uL (1.8-7.7) 04/17/25 04:11 Lymph # (Auto) 2.5 10^3/uL (0.8-4.8) 04/17/25 04:11 Coal # (Auto) 0.7 10^3/uL (0.2-0.9) 04/17/25 04:11 Eos # (Auto) 0.4 10^3/uL (0.0-0.8) 04/17/25 04:11 Baso # (Auto) 0.1 10^3/uL (0.0-0.1) 04/17/25 04:11 Nucleated RBC % (auto) 0 % 04/17/25 04:11 Nucleated RBCs # 0.0 /100WBC 04/17/25 04:11 Sodium 141 mmol/L (136-145) 04/17/25 04:11 Potassium 4.1 mmol/L (3.5-5.1) 04/17/25 04:11 Chloride 105 mmol/L (98-107) 04/17/25 04:11 Carbon Dioxide 26 mmol/L (22-29) 04/17/25 04:11 Anion Gap 14.1 (5-19) 04/17/25 04:11 BUN 10 mg/dL (6-20) 04/17/25 04:11 Creatinine 0.5 mg/dL (0.5-0.9) 04/17/25 04:11 GFR Calculation 128.6 mL/min (90-130) 04/17/25 04:11 Glucose 98 mg/dL (65-115) 04/17/25 04:11 POC Glucose 129 mg/dL (70-110) H 04/17/25 10:41 Calculated Osmolality 291 mOsm/kg (285-295) 04/17/25 04:11 Calcium 8.6 mg/dL (8.5-10.5) 04/17/25 04:11 Total Bilirubin 0.4 mg/dL (0.15-1.2) 04/15/25 10:40 AST 22 U/L (0-32) 04/15/25 10:40 ALT 23 U/L (0-33) 04/15/25 10:40 Alkaline Phosphatase 109 U/L (35-105) H 04/15/25 10:40 Troponin T Baseline 42 ng/L (0-10) H 04/15/25 10:40 Troponin T 120 Minute 37.38 ng/L (0-10) H 04/15/25 12:38 Delta Troponin T -4.62 ABS# (0-10) L 04/15/25 12:38 Troponin T Hi Sens 6Hr 34.82 ng/L (0-10) H 04/15/25 17:01 Troponin T Hi Sens 6Hr Delta -7.18 ng/L (0-12) L 04/15/25 17:01 Total Protein 8.1 g/dL (6.6-8.7) 04/15/25 10:40 Albumin 4.3 g/dL (3.5-5.2) 04/15/25 10:40 Globulin 3.8 g/dL (1.3-4.6) 04/15/25 10:40 Lipase 31 U/L (13-60) 04/15/25 10:40 Vitals Last Vital Signs Temp 97.9 F 04/17/25 11:15 Pulse 70 04/17/25 11:15 Resp 20 H 04/17/25 11:15 BP 189/110 04/17/25 11:15 Pulse Ox 96 04/17/25 11:15 O2 Del Method Room Air 04/17/25 11:15 Discharge Plan Discharge Patient Disposition: Home Condition: Stable Prescriptions: Continued (DME) blood-glucose meter [Accu-Chek Guide Glucose Meter] Misc See Rx Instructions .Route Qty: 1 0RF Rx Instructions: As directed, test blood sugar Twice a day. (DME) lancets [BD Ultra Fine Lancets] 33 gauge misc See Rx Instructions .Route Qty: 100 0RF Rx Instructions: As directed check blood sugar twice a day. (DME) Bipap machine and supplies See Rx Instructions .Route .MEDSUPPLY Qty: 1 0RF Rx Instructions: As directed, Settings 18/14 cm with insp. time 1.5 sec and rate of 12 Januvia 100 mg tablet 100 mg PO DAILY Qty: 30 5RF atorvastatin 40 mg tablet 40 mg PO BID Qty: 60 5RF (DME) OneTouch Ultra Test Strip See Rx Instructions .ROUTE .COMPLEX Qty: 100 3RF Dose Instruction: USE DIRECTED CHECK BLOOD SUGAR TWICE DAILY Rx Instructions: USE DIRECTED CHECK BLOOD SUGAR TWICE DAILY carvedilol 25 mg tablet 25 mg PO BID 90 Days Qty: 180 3RF Rx Instructions: must administer with a meal/food (DME) pen needle, diabetic [TechLITE Pen Needle] 31 gauge x 3/16 needle See Rx Instructions .Route Qty: 200 3RF Rx Instructions: As directed to administer insulin. furosemide 20 mg tablet See Rx Instructions .ROUTE .COMPLEX Qty: 30 5RF Dose Instruction: TAKE ONE TABLET (20 MG) BY MOUTH DAILY AT 9 AM EVERY MORNING FOR EDEMA/ HEART Rx Instructions: TAKE ONE TABLET (20 MG) BY MOUTH DAILY AT 9 AM EVERY MORNING FOR EDEMA/ HEART celecoxib 200 mg capsule 200 mg PO BID Qty: 20 0RF brimonidine 0.2 % drops 1 drp ophthalmic (eye) BID bupropion HCl 150 mg tablet sustained-release 12 hr 150 mg PO QAM isosorbide mononitrate 60 mg tablet extended release 24 hr 60 mg PO QAM metformin 1,000 mg tablet 1,000 mg PO BID gabapentin 300 mg capsule 300 mg PO TID topiramate 50 mg tablet 50 mg PO DAILY Eliquis 5 mg tablet 5 mg PO BID Jardiance 25 mg tablet 25 mg PO QAM insulin glargine [Lantus Solostar U-100 Insulin] 100 unit/mL (3 mL) insulin pen 12 unit SUBCUT BEDTIME Discharge Order = DC NOW: Discharge Order (Routine); Ordered 04/17/25 Ordered By: Emeterio Langston Referrals: Ave Reyes MD [Primary Care Provider, Family Practice] Discharge Diet: Usual diet Discharge Activity: Resume usual activity Patient Instructions: Opioid Safety, Patient Portal & Ute Instructions Discharge Attestations Time Spent in Discharge Care*: greater than 30 min Specific Discharge Activities: educating patient, educating and/or supporting family/caregiver, discussing with pcp/other providers, discussing with case packer and sealer/social workers/dc planners, documenting/other paperwork and evaluating patient/reviewing data Quality Metrics Clinical Quality Measures [ No reported AMI, CVA or VTE this stay] Coding Level of Care Code Acute Code for Chg Fwd Diagnoses Small bowel obstruction K56.609 SANDRA treated with BiPAP G47.33 Diabetes mellitus type 2 with neurological manifestations E11.49
--- NOTE | 2025-04-17 14:00 | PC.SOCIAL ---
*IMM Update* Patient received copy of Important message from [employer]. Signed and dated in chart.
[2025-04-17 14:50] VITALS: BP 189/110; PULSE 70; RESP 20; TEMP 36.6; O2SAT 96
== END 2025-04-17 14:51 | disposition home or self-care (01) | DRG 390 ==
LOC: ER 13:30 → ER IP 14:38 → MEDSURG 16:07
PROVIDERS: Admitting Provider Internal Medicine; Emergency Provider Emergency Medicine; PCP Family Medicine; Visit Provider Internal Medicine
DX: K56.609 Unspecified intestinal obstruction, unspecified as to partial versus complete obstruction (principal); G47.33 Obstructive sleep apnea (adult) (pediatric); E11.40 Type 2 diabetes mellitus with diabetic neuropathy, unspecified; Z79.85 Long-term (current) use of injectable non-insulin antidiabetic drugs; Z79.4 Long term (current) use of insulin; Z79.84 Long term (current) use of oral hypoglycemic drugs; R93.3 Abnormal findings on diagnostic imaging of other parts of digestive tract; E66.9 Obesity, unspecified; Z68.36 Body mass index [BMI] 36.0-36.9, adult; I25.10 Atherosclerotic heart disease of native coronary artery without angina pectoris; I11.0 Hypertensive heart disease with heart failure; I50.9 Heart failure, unspecified; E78.5 Hyperlipidemia, unspecified; F43.10 Post-traumatic stress disorder, unspecified; F41.9 Anxiety disorder, unspecified; Z79.01 Long term (current) use of anticoagulants
CPT/HCPCS: 36415; 36416; 71045; 74177; 80048; 80053; 82962; 83690; 84484; 85025; 93005; 94660; 96372; 96374; 96375; 96376; 97161; 99285; J1171; J1815; J2060; J2270; J2405; J7030

== ENCOUNTER 2025-07-18 13:54 | Emergency (ER) | payer MEDICARE, MEDICAID, SELFPAY ==
[2025-07-18 13:57] VITALS: BP 166/104; PULSE 84; RESP 18; TEMP 36.4; O2SAT 91
--- NOTE | 2025-07-18 14:00 | XR_ITS ---
WS: [id number] Exam: XR ribs RT mn 3V w CXR1V [id number] Date/Time of Exam: 07/18/2025 2:00 PM Reason For Exam: fall No acute right rib fracture based on images presented. The RIGHT lung is fully inflated and clear. No pleural or pulmonary reactive changes. Normal cardiomediastinal silhouette. LEFT lung is clear. XR/XR ribs RT mn 3V w CXR1V [id number] IMPRESSION: 1. No acute RIGHT rib fracture or pneumothorax. 2. No acute cardiopulmonary process noted otherwise.
--- NOTE | 2025-07-18 14:02 | W.ED.GENADLT ---
HPI - General Adult General: Chief complaint: General Medical Stated complaint: fall 2wk ago rib pain right side Time Seen by Provider: 07/18/25 14:02 History of Present Illness: 55-year-old female with a history of peripheral neuropathy, obesity, diabetes, chronic anticoagulation on Eliquis, obstructive sleep apnea on nighttime BiPAP, hyperlipidemia, PTSD, coronary artery disease and congestive heart failure who presents to the emergency room with right-sided rib pain. She says she fell 2 weeks ago. No shortness of breath. No cough. No fever. No altered mental status. No head injury. She is anticoagulated on Eliquis. Related Data Home Medications ?Medication ?Instructions ?Recorded ?Confirmed apixaban 5 mg tablet (Eliquis) 5 mg PO BID HISTORY OF THROMBUS 05/22/24 04/15/25 brimonidine 0.2 % eye drops 1 drp ophthalmic (eye) BID 05/22/24 04/15/25 bupropion HCl 150 mg tablet,12 hr 150 mg PO QAM 05/22/24 04/15/25 sustained-release empagliflozin 25 mg tablet 25 mg PO QAM 05/22/24 04/15/25 (Jardiance) gabapentin 300 mg capsule 300 mg PO TID 05/22/24 04/15/25 isosorbide mononitrate 60 mg 60 mg PO QAM 05/22/24 04/15/25 tablet,extended release 24 hr metformin 1,000 mg tablet 1,000 mg PO BID 05/22/24 04/15/25 topiramate 50 mg tablet 50 mg PO DAILY 05/22/24 04/15/25 insulin glargine 100 unit/mL (3 12 unit SUBCUT BEDTIME 04/15/25 04/15/25 mL) subcutaneous pen (Lantus Solostar U-100 Insulin) Previous Rx's ?Medication ?Instructions ?Recorded blood-glucose meter (Accu-Chek #1 ea 05/29/21 Guide Glucose Meter) lancets 33 gauge (BD Ultra Fine #100 ea 05/29/21 Lancets) Bipap machine and supplies #1 ea 06/02/22 sitagliptin phosphate 100 mg 100 mg PO DAILY diabetes #30 tabs 04/05/23 tablet (Januvia) atorvastatin 40 mg tablet 40 mg PO BID high 04/06/23 cholesterol/lipids #60 tabs blood sugar diagnostic (OneTouch #100 strips 08/19/23 Ultra Test strips) carvedilol 25 mg tablet 25 mg PO BID 90 days #180 tabs 12/14/23 pen needle, diabetic 31 gauge x #200 ea 01/03/2411/18 (TechLITE Pen Needle) celecoxib 200 mg capsule 200 mg PO BID #20 caps 03/11/24 furosemide 20 mg tablet See Rx Instructions .Route 03/13/24 .COMPLEX #30 tabs hydrocodone 5 mg-acetaminophen 325 1 tab PO Q8H PRN pain #14 tabs 07/18/25 mg tablet polyethylene glycol 3350 17 17 g PO DAILY #510 grams 07/18/25 gram/dose oral powder (Miralax) Allergies Allergy/AdvReac Type Severity Reaction Status Date / Time duloxetine (From Cymbalta) Allergy ADR-Irritab Verified 04/15/25 10:20 le quetiapine (From Seroquel) Allergy ADR-Drowsy Verified 04/15/25 10:20 shellfish derived Allergy ALGY-Swell Verified 04/15/25 10:20 Lip/Tongue/Throat Review of Systems Narrative: Constitutional symptoms: Negative except as documented in HPI. Skin symptoms: Negative except as documented in HPI. Eye symptoms: Negative except as documented in HPI. ENMT symptoms: Negative except as documented in HPI. Respiratory symptoms: Negative except as documented in HPI. Cardiovascular symptoms: Negative except as documented in HPI. Gastrointestinal symptoms: Negative except as documented in HPI. Genitourinary symptoms: Negative except as documented in HPI. Musculoskeletal symptoms: Negative except as documented in HPI. Neurologic symptoms: Negative except as documented in HPI. Psychiatric symptoms: Negative except as documented in HPI. Endocrine symptoms: Negative except as documented in HPI. PFSH ED PFSH: Medical History (Updated 07/18/25 @ 14:30 by Chey Reardon MD) Peripheral neuropathy 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 Glaucoma SANDRA treated with BiPAP Diabetes mellitus type 2 with neurological manifestations Osteoarthritis GERD (gastroesophageal reflux disease) Uncontrolled diabetes mellitus Ocular migraine eye exam 04/06/2023 Mikel Howard Chest pain made worse by breathing Cannabis abuse Methamphetamine dependence Hyperlipidemia associated with type 2 diabetes mellitus Hypertension Mural thrombus of left ventricle Not present on 04/07/2021 Echo SPG Morbid obesity with BMI of 40.0-44.9, adult Anxiety about health PTSD (post-traumatic stress disorder) Dental caries CHF (congestive heart failure) Echo SPG 04/07/2021 45-50% LVEF CAD (coronary artery disease) SPG 03/2021 Cath with mild 30% LAD Surgical History History of 2 sections Hx of cholecystectomy Hx of hysterectomy History of umbilical hernia repair Family History Grandmother CAD (coronary artery disease) Dementia Lung disease Mother Hypertension Dementia Lung disease Stroke Grandmother Family history of premature coronary artery disease Family/Other Diabetes Father Lung disease Grandfather Stroke Denies family history of Clotting disorder Chronic kidney disease (CKD) Suicide Anesthesia complication Bleeding disorder Cancer Social History (Updated 04/15/25 @ 13:38 by Emeterio Langston MD) Smoking and tobacco/nicotine status: never used tobacco/nicotine Second hand smoke exposure: No Alcohol intake: current Alcohol intake frequency: holidays/special occasions only Alcohol type: hard liquor Substance/Drug Use: current Substance/Drug use frequency: Special occassions/opportunity only Other substance/drug use details: 7 days abstinence Adopted: No Lives independently: Yes Household members: children and none Housing: Apartment Marital status: / Number of children: 4 Highest education level completed: GED or Equivalent service: No Current occupational status: disabled Physical Exam Narrative: EXAM NARRATIVE: General: Alert, no acute distress. Skin: Warm, dry. Head: Normocephalic, atraumatic. Neck: Supple, trachea midline. Eye: Extraocular movements are intact. Ears, nose, mouth and throat: mucosa moist. Cardiovascular: Regular, Normal peripheral perfusion. Respiratory: Lungs are clear to auscultation, respirations are non-labored, breath sounds are equal, Symmetrical chest wall expansion. Tenderness to palpation lateral lower right ribs Gastrointestinal: Soft, Nontender, Non distended Musculoskeletal: Normal ROM, no deformity. Neurological: Alert and oriented, No focal neurological deficit observed. Psychiatric: Cooperative, appropriate mood & affect. Course Vital Signs: Vital signs: Vital Signs Temperature 97.6 F 07/18/25 13:57 Pulse Rate 80 07/18/25 14:39 Respiratory Rate 16 07/18/25 14:39 Blood Pressure 160/99 07/18/25 14:39 Pulse Oximetry 95 07/18/25 14:39 Oxygen Delivery Me thod Room Air 07/18/25 14:22 MDM - General Adult Medical Decision Making Medical decision making Patient's reason for coming to the emergency room: Traumatic right sided rib pain Social determinants: Patient is disabled. I reviewed the patient's medical record. 55-year-old female with a history of peripheral neuropathy, obesity, diabetes, chronic anticoagulation on Eliquis, obstructive sleep apnea on nighttime BiPAP, hyperlipidemia, PTSD, coronary artery disease and congestive heart failure I reviewed the patient's current home meds Patient is on Eliquis at home. She takes no narcotic pain control medications Alternate historians: None Differential diagnosis: including but not limited to and based on the above HPI, review of systems and physical exam: Orders placed to evaluate differential diagnosis based on the above differential, HPI and physical exam. Would have concern for rib fractures, pneumonia, pulmonary contusion, pneumothorax Chest x-ray: No acute process. No rib fractures. This was reviewed and interpreted by myself the emergency room physician. I also reviewed the radiology report. Lab Review: Laboratory results were reviewed and interpreted by myself the emergency room physician. No lab work indicated today Assessment of risk: Level of risk: Moderate risk patient. Multiple comorbidities and anticoagulation. Reexamination: Patient remained stable. No increased work of breathing. No altered mental status. No focal motor deficits. Assessment and plan: Rib contusion ?[place] here in the emergency room. - Discharged home - Discussed plan with patient. Answered any questions. - Evaluation and treatment of this problem were appropriate in the emergency setting. Lab Data Radiology Impressions Ribs X-Ray 07/18/25 14:00 IMPRESSION: 1. No acute RIGHT rib fracture or pneumothorax. 2. No acute cardiopulmonary process noted otherwise. All radiology interpretation(s) finalized by discharge Discharge Plan Discharge Patient Disposition: Home Clinical Impression: Rib contusion Condition: Stable Prescriptions: New hydrocodone-acetaminophen 5-325 mg tablet 1 tab PO Q8H PRN (Reason: pain) Qty: 14 0RF Rx Instructions: Take 1/2 to 1 tab every 8 hours as needed for pain polyethylene glycol 3350 [Miralax] 17 gram/dose powder 17 g PO DAILY Qty: 510 0RF Rx Instructions: Take 1 scoop daily while taking pain medications. No Action (DME) blood-glucose meter [Accu-Chek Guide Glucose Meter] Misc See Rx Instructions .Route Qty: 1 0RF Rx Instructions: As directed, test blood sugar Twice a day. (DME) lancets [BD Ultra Fine Lancets] 33 gauge misc See Rx Instructions .Route Qty: 100 0RF Rx Instructions: As directed check blood sugar twice a day. (DME) Bipap machine and supplies See Rx Instructions .Route .MEDSUPPLY Qty: 1 0RF Rx Instructions: As directed, Settings 18/14 cm with insp. time 1.5 sec and rate of 12 Januvia 100 mg tablet 100 mg PO DAILY Qty: 30 5RF atorvastatin 40 mg tablet 40 mg PO BID Qty: 60 5RF (DME) OneTouch Ultra Test Strip See Rx Instructions .ROUTE .COMPLEX Qty: 100 3RF Dose Instruction: USE DIRECTED CHECK BLOOD SUGAR TWICE DAILY Rx Instructions: USE DIRECTED CHECK BLOOD SUGAR TWICE DAILY carvedilol 25 mg tablet 25 mg PO BID 90 Days Qty: 180 3RF Rx Instructions: must administer with a meal/food (DME) pen needle, diabetic [TechLITE Pen Needle] 31 gauge x 3/16 needle See Rx Instructions .Route Qty: 200 3RF Rx Instructions: As directed to administer insulin. furosemide 20 mg tablet See Rx Instructions .ROUTE .COMPLEX Qty: 30 5RF Dose Instruction: TAKE ONE TABLET (20 MG) BY MOUTH DAILY AT 9 AM EVERY MORNING FOR EDEMA/ HEART Rx Instructions: TAKE ONE TABLET (20 MG) BY MOUTH DAILY AT 9 AM EVERY MORNING FOR EDEMA/ HEART celecoxib 200 mg capsule 200 mg PO BID Qty: 20 0RF brimonidine 0.2 % drops 1 drp ophthalmic (eye) BID bupropion HCl 150 mg tablet sustained-release 12 hr 150 mg PO QAM isosorbide mononitrate 60 mg tablet extended release 24 hr 60 mg PO QAM metformin 1,000 mg tablet 1,000 mg PO BID gabapentin 300 mg capsule 300 mg PO TID topiramate 50 mg tablet 50 mg PO DAILY Eliquis 5 mg tablet 5 mg PO BID Jardiance 25 mg tablet 25 mg PO QAM insulin glargine [Lantus Solostar U-100 Insulin] 100 unit/mL (3 mL) insulin pen 12 unit SUBCUT BEDTIME Discharge Orders: Discharge ED (Routine); Ordered 07/18/25 Ordered By: Chey Reardon Referrals: Ave Reyes MD [Primary Care Provider, Family Practice] Discharge Diet: Usual diet Discharge Activity: Increase activity as tolerated Patient Instructions: How to Use an Incentive Spirometer (ED), Rib Contusion (ED), Opioid Safety, Pain Management, Patient Portal & Ute Instructions Activity Restrictions/Additional Instructions: Please use your incentive spirometer 3-4 times daily. Thank you for choosing [facility] for your healthcare needs today. You have been screened and evaluated and felt safe for discharge. Health conditions do change or evolve sometimes and as such it is important that you follow up with your Primary Doctor to be re checked, 3-5 days is a general good time frame for follow up. You are always welcome to return to the ED for re assessment if your symptoms are worsening or you have new concerns Print Language: [place] Citizen Coding Level of Care Code ED Fire Protection Fabricator for Evelyn Berg
--- OUTSIDE RECORDS SUMMARY | 2025-07-18 14:03 | XMS_ITS | Encounter Summary ---
Author Organization [employer] Address [address] [place] [address] Care Team Providers Care Compounder Sterile Products Name Role Phone Jace Gonzalez MD Primary Care Provider [phone] Encounter Details Date Type Department Care Team (Late st Contact Info) Description 07/09/2025 External Device Data ST[place] ABSTRACTION Provider, Abstract NO ADDRESS ON FILE Social History Tobacco Use Types Packs/Day Years Used Date Smoking Tobacco: Never Smokeless Tobacco: Never Alcohol Use Standard Drinks/Week Comments No 0 (1 standard drink = 0.6 oz pur e alcohol) Feeling Safe Answer Date Recorded Are you in a relationship wi th someone who hurts you emotionally and/or physically? 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
--- OUTSIDE RECORDS SUMMARY | 2025-07-18 14:03 | XMS_ITS | Encounter Summary ---
Author Organization [facility] Address 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 Gender Identity Female 07/01/2025 11:41 AM CDT Sexual Orientation Asexual 07/01/2025 11 :41 AM CDT documented as of this encounter Plan of Treatment Not on file documented as of this encounter Procedures Procedure Name Priority Date/Time Associated Diagnosis Comments LIPASE Stat 05/29/2025 3:20 PM CDT Epigastric pain COMPREHENSIVE METABOLIC PANEL Stat 05/29/2025 3:20 PM CDT Epigastric pain documented in this encounter Results * LIPASE (05/29/2025 3:20 PM CDT) LIPASE 40 13 - 60 U/L 05/29/2025 3:44 PM CDT [facility] Blood BLOOD SPECIMEN / Unknown Collection / Unknown 05/29/2025 3:20 PM CDT 05/29/2025 3:24 PM CDT us Shayna Hinton CHERRY CUTTER CHEMISTRY ORDERABLES Final Result [facility] CLIA # [id number] [address] [place] [address] * (ABNORMAL) COMPREHENSIVE METABOLIC PANEL (05/29/2025 3:20 PM CDT) Pathologist [facility] SODIUM 138 136 - 145 mmol/L 05/29/2025 3:44 PM CDT [facility] POTASSIUM 4.2 3.5 - 5.1 mmol/L 05/29/2025 3:44 PM CDT [facility] CHLORIDE 103 98 - 107 mmol/L 05/29/2025 3:44 PM CDT [facility] CO2 23 22 - 29 mmol/L 05/29/2025 3:44 PM CDT [facility] CALCIUM 9.5 8.6 - 10.0 mg/dL 05/29/2025 3:44 PM CDT [facility] BUN 31(H) 6 - 20 mg/dL 05/29/2025 3:44 PM T [facility] CREATININE 0.59 0.51 - 0.95 mg/dL 05/29/2025 3:44 PM T [facility] GLUCOSE 127(H) 74 - 99 mg/dL 05/29/2025 3:44 PM T [facility] TOTAL PROTEIN 7.4 6.6 - 8.7 g/dL 05/29/2025 3:44 PM [facility] ALBUMIN 4.0 3.5 - 5.2 g/dL 05/29/2025 3:44 PM [facility] BILIRUBIN TOTAL 0.2 0.0 - 1.2 mg/dL 05/29/2025 3:44 PM [facility] ALKALINE PHOSPHATASE 74 35 - 104 U/L 05/29/2025 3:44 PM [facility] AST 23 0 - 35 U/L 05/29/2025 3:44 PM [facility] ALT 19 0 - 35 U/L 05/29/2025 3:44 PM [facility] GFR >60 >=60 mL/min/1.7 3 sq meter 05/29/2025 3:44 PM [facility] Comment:eGFR calculated with 2020 CKD-EPI equation. Vegetarian diet, extremely high or low muscle mass, and may affect results. Cystatin C with Glomerular Filtration Rate is a suitable alternative for these patients. ANION GAP 12 5 - 20 mmol/L 05/29/2025 3:44 PM [facility] Blood BLOOD SPECIMEN / Unknown Collection / Unknown 05/29/2025 3:20 PM CDT 05/29/2025 3:24 PM CDT Shayna Hinton CHERRY CUTTER CHEMISTRY ORDERABLES Final Result Performing Organization Address City/State/[facility] Co de Phone Number [facility] [id number] [address] [place] [address] documented in this encounter Visit Diagnoses Diagnosis Epigastric pain Abdominal pain, epigastric documented in this encounter Care Teams Packaging Design Engineer Relationship Specialty Start Date End Date Jace Gonzalez MD [address] [address] PCP - General Family Practice 05/25/24 documented as of this encounter
--- OUTSIDE RECORDS SUMMARY | 2025-07-18 14:03 | XMS_ITS | Patient Health Record ---
Author Organization [facility] Address [address] [place] [address] Care Team Providers Care Deaf Teacher Name Role Phone Anderson Salazar Unavailable [phone] Reason For Referral No Information Medications Medication [...] Notes Problem Type II diabetes mellitus uncontrolled (996572467) NIDDM, uncontrolled (250.02) 2013 Active confirmed [id number][id number]- Problem 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) 2013 Active confirmed [id number][id number]- Problem Chronic pain syndrom e (258752640) Chronic pain syndrome (338.4) 2013 Problem resolved confirmed [id number][id number]- Problem Wheezing (87195872) Wheezing (786.07) 2011 Problem resolved confirmed [id number]- Problem Cough (89052446) Cough (786.2) 2011 Problem resolved confirmed [id number][id number]- Problem Generalized abdomina l pain (146035411) Abdominal pain, generalized (789.07) 2010 Problem resolved confirmed [id number][id number]- Problem Generalized anxiety disorder (22797569) Anxiety, generalized (300.02) 2009 Problem resolved confirmed [id number][id number]- Problem Sleep apnea (95181235) Sleep apnea (780.57) 2009 Problem resolved confirmed [id number][id number]- Problem Fibromyalgia (536391596) Fibromyalgia (729.1) 2009 Problem resolved confirmed [id number][id number]- Problem Headache (47200946) Headache (307.81) 2009 Problem resolved confirmed [id number][id number]- Problem Hypercholesterolemia (75823330) Hypercholesterolemia (272.0) 2013 Problem resolved confirmed [id number][id number]- Problem Shoulder pain (17914733) Shoulder pain (719.41) 2010 Problem resolved confirmed [id number][id number]- Problem 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 Problem resolved confirmed [id number][id number]- Problem Screening for breast cancer (317148687) Screening for breast cancer (V76.10) 2013 Problem resolved confirmed [id number][id number]- Problem Allergic rhinitis du e to allergen (71546397) Allergic rhinitis, other allergen-induced, NEC (477.8) 2014 Problem resolved confirmed [id number][id number]- Problem Sore throat (703850190) Sore Throat (462) 2010 Problem resolved confirmed [id number][id number]- Problem Chest pain (66220470) Chest pain (786.51) 2013 Problem resolved confirmed [facility][id number]- Problem Generalized abdomina l pain (283612175) Generalized abdominal pain (789.07) 2012 Problem resolved confirmed [facility][id number]- Problem Intolerant of heat (90745367) Heat intolerance (780.99) 2011 Problem resolved confirmed [facility][id number]- Problem Impaired fasting glycaemia (268949959) Elevated fasting glucose (790.21) 2011 Problem resolved confirmed [id number][id number]- Problem Insomnia (637360912) Insomnia (307.41) 2013 Problem resolved confirmed [facility][id number]- Problem Abdominal pain (58862023) Abdominal pain (789.09) 2011 Problem resolved confirmed [facility][id number]- Problem Anxiety state (718622350) Situational stress with anxiety (300.09) 2013 Problem resolved confirmed [id number][id number]- Problem Electrocardiogram abnormal (957337674) Abnormal EKG (794.31) 2011 Problem resolved confirmed [id number][id number]- Problem Obstructive sleep apnea (20296730) Obstructive sleep apnea (780.57) 2013 Problem resolved confirmed [id number][id number]- Problem Thyroid function tests abnormal (949362982) Abnormal thyroid findings (794.5) 2013 Problem resolved confirmed [id number][id number]- Problem Anxiety (52612848) Anxiety (300.02) 08/27 Problem resolved confirmed [facility][id number]- Problem Migraine with aura (3904418) Classic migraine (346.00) 2014 Problem resolved confirmed [facility][id number]- Problem Closed fracture of distal phalanx of finger (79667385) Closed fracture of distal finger (816.02) 2011 Problem resolved confirmed [id number][id number]- Problem Urinary tract infection (39555330) Urinary tract infection (595.0) 2018 Problem resolved confirmed [facility]98 [id number]- Problem Central obesity (377441361) Central obesity (278.1) 2009 Problem resolved confirmed [facility]98 [id number]- Problem Left ventricular hypertrophy (95929008) LVH (429.3) 2011 Problem resolved confirmed [facility][id number]- Problem Incisional hernia (691554990) Ventral hernia, incisional (553.21) 2010 Problem resolved confirmed [facility][id number] [id number]- Problem Chest discomfort (318558149) Chest discomfort (786.59) 2013 Problem resolved confirmed [facility]98 [id number]- Problem Wrist pain (15033685) Wrist pain (719.43) 2011 Problem resolved confirmed [facility]98 [id number]- Problem Essential hypertension (78371165) Essential hypertension (401.1) 2009 Problem resolved confirmed [facility]98 [id number]- Problem Type II diabetes mellitus without complication (801106889) NIDDM (250.00) 2009 Problem resolved confirmed [facility]98 [id number]- Problem Thoracic back pain (370432836) Upper back pain (724.5) 2018 Problem resolved confirmed [facility]- Plan Of Treatment No Information Medical (General) History Surgical History Surgery Date(Month/Year) CholecystectomyHysterectomy section: X 2; Hernia Repair: 2001; umbilical;
--- OUTSIDE RECORDS SUMMARY | 2025-07-18 14:03 | XMS_ITS | Clinical Summary ---
Author Organization [facility] Address [address] [place] [address] Care Team Providers Care Fur Stretcher Name Role Phone Jace Gonzalez MD Primary Care Provider [phone] Allergies Active Allergy Reactions Criticality Noted Date Comments Duloxetine Other (See Comments) 11/02/2020 Malicious Iodine Swelling Low 01/06/2012 Lisinopril Cough Low 05/30/2025 Quetiapine Other (See Comments) 11/02/2020 Knocked me out for 2 days Shellfish Containing Products Anaphylaxis High 06/22/2024 Throat swells Medications ProAir HFA 90 mcg/actuation inhaler INHALE TWO PUFFS BY MOUTH EVERY 4 HOURS NEEDED FOR SHORTNESS OF BREATH OR WHEEZING Active OneTouch Ultra Test Strip USE DIRECTED CHECK BLOOD SUGAR TWICE DAILY 022 Active Blood-Glucose Meter Use as directed to check blood sugars 021 Active latanoprost (XALATAN) 0.005 % solution instill 1 drop IN EACH EYE EVERY NIGHT 022 Active Insulin [place], Disposable, 31 gauge x 5/16 Needle Use to inject insulin. 021 Active brimonidine (ALPHAGAN) 0.2 % solution INSTILL ONE DROP IN EACH EYE TWICE DAILY 024 Active NovoLOG Flexpen U-100 Insulin 100 unit/mL (3 mL) pen syringeIndication s:Type 2 diabetes mellitus with hyperglycemia, with long-term current use of insulin ([facility]) Medium-dose Regimen Insulin Sliding Scale before lunch and dinner. 3 units subcutaneously for fingerstick blood glucose 120-160 milligram/decili ter 5 units subcutaneously for fingerstick blood glucose 161-200 milligram/decili ter 8 units subcutaneously for fingerstick blood glucose 201-240 milligram/decili ter 12 units subcutaneously for fingerstick blood glucose 241-280 milligram/decili ter 16 units subcutaneously for fingerstick blood glucose 281-320 milligram/decili ter 20 units subcutaneously for fingerstick blood glucose > 321 milligram/decili ter 3 mL 3 024 Active Jardiance 25 mg tabletIndications :Type 2 diabetes mellitus with hyperglycemia, with long-term current use of insulin ([facility]),Chronic combined systolic and diastolic congestive heart failure ([facility]) Take 1 Tablet (25 mg) by mouth daily in the morning. 100 Tablet 3 024 Active Blood-Glucose Meter,Continuous (Dexcom G7 Photographic Technician)Indicati ons:Type 2 diabetes mellitus with hyperglycemia, with long-term current use of insulin ([facility]) To continuously monitor blood glucose 1 Each 024 Active Blood-Glucose Sensor (Dexcom G7 Sensor) DeviceIndications :Type 2 diabetes mellitus with hyperglycemia, with long-term current use of insulin ([facility]) Change sensor every 10 days. Use to continuously monitor blood sugar. 3 Each 6 024 Active Lantus Solostar U-100 Insulin 100 unit/mL (3 mL) solution for injectionIndicati ons:Type 2 diabetes mellitus with hyperglycemia, with long-term current use of insulin ([facility]) INJECT 12 UNITS SUBCUTANEOUSLY DAILY AT BEDTIME 15 mL 025 Active celecoxib (CeleBREX) 200 mg capsuleIndication s:Chronic pain syndrome Take 1 Capsule (200 mg) by mouth 2 times daily. 200 Capsule 1 025 Active atorvastatin (LIPITOR) 40 mg tabletIndications :Mixed hyperlipidemia TAKE 1 TABLET BY MOUTH DAILY 100 Tablet 025 Active docusate sodium (COLACE) 100 mg capsuleIndication s:Small bowel obstruction ([facility]) Take 1 Capsule (100 mg) by mouth 2 times daily. 180 Capsule 2 025 Active carvediloL (COREG) 25 mg tabletIndications :Chronic combined systolic and diastolic congestive heart failure (CMS/HCC),Essenti al hypertension TAKE ONE (1) TABLET BY MOUTH TWICE DAILY WITH MEALS 200 Tablet 025 Active furosemide (LASIX) 20 mg tabletIndications :Chronic combined systolic and diastolic congestive heart failure (CMS/HCC) TAKE 1 TABLET BY MOUTH DAILY 100 Tablet 025 Active metFORMIN (GLUCOPHAGE) 1,000 mg tabletIndications :Type 2 diabetes mellitus with hyperglycemia, with long-term current use of insulin ([facility]) TAKE ONE (1) TABLET BY MOUTH TWICE DAILY WITH MEALS 200 Tablet 025 Active gabapentin (NEURONTIN) 300 mg capsuleIndication s:Fibromyalgia TAKE 1 CAPSULE BY MOUTH 3 TIMES DAILY 300 Capsule 025 Active isosorbide mononitrate (IMDUR) 60 mg Extended Release 24 hour tabletIndications :Essential hypertension,Othe r chest pain TAKE 1 TABLET BY MOUTH DAILY 100 Tablet 025 Active topiramate (TOPAMAX) 50 mg tabletIndications :Chronic daily headache TAKE 1 TABLET BY MOUTH DAILY 100 Tablet 025 Active Eliquis 5 mg tabletIndications :Chronic combined systolic and diastolic congestive heart failure (CMS/HCC),Hx of blood clots TAKE ONE (1) TABLET BY MOUTH TWICE DAILY 200 Tablet 025 Active buPROPion HCL (WELLBUTRIN SR) 150 mg Sustained Release 12 hour tabletIndications :Moderate episode of recurrent major depressive disorder ([facility]),Bipolar 2 disorder ([facility]) TAKE 1 TABLET BY MOUTH DAILY 100 Tablet 025 Active Januvia 100 mg TabletIndications :Type 2 diabetes mellitus with hyperglycemia, with long-term current use of insulin ([facility]) TAKE 1 TABLET BY MOUTH DAILY WITH BREAKFAST 100 Tablet 025 Active lisinopriL (PRINIVIL) 5 mg tabletIndications :HTN (hypertension), benign Take 1 Tablet (5 mg) by mouth daily. 100 Tablet 025 Active semaglutide (Ozempic) 0.25 mg or 0.5 mg (2 mg/3 mL) Pen InjectorIndicatio ns:Type 2 diabetes mellitus with hyperglycemia, with long-term current use of insulin ([facility]) INJECT 0.5MG SUBCUTANEOUSLY EVERY 7 DAYS 9 mL 025 Active omeprazole (PriLOSEC) 20 mg Capsule, Delayed Release(E.C.)Adilene cations:Indigesti on take 1 capsule BY MOUTH EVERY DAY 100 Capsule 025 Active semaglutide (Ozempic) 0.25 mg or 0.5 mg (2 mg/3 mL) Pen InjectorIndicatio ns:Type 2 diabetes mellitus with hyperglycemia, with long-term current use of insulin ([facility]) Inject 0.5 mg by subcutaneous injection every 7 days. 9 mL 3 024 2024 Discontinued omeprazole (PriLOSEC) 20 mg Capsule, Delayed Release(E.C.)Adilene cations:Indigesti on Take 1 Capsule (20 mg) by mouth daily. 30 Capsule 1 025 2024 Discontinued Active Problems Problem Noted Date Diagnosed Date [...] Encounters Date Type Department Care Team Description 07/09/2025 External Device Data [facility] ABSTRACTION Provider, Abstract 07/09/2025 External Device Data [facility]STRACTION Provider, Abstract 06/29/[address] [phone] YingKenzie strong FNP Indigestion 06/27/2025 Patient Outreach [address] [phone] Jace Gonzalez MD Primary Care Outreach 06/26/2025 External Device Data [facility] ABSTRACTION Provider, Abstract 06/25/2025 External Device Data [facility]STRACTION Provider, Abstract 06/19/[address] [phone] Ying, Crystal Carrie, FIREPERSON Type 2 diabetes mellitus with hyperglycemia, with long-term current use of insulin (CMS/HCC) 06/12/2025 Orders Only [address] [phone] Ying Crystal Carrie, FIREPERSON Chronic combined systolic and diastolic congestive heart failure (CMS/HCC) (Primary Dx); Other chest pain 06/11/2025 External Device Data [facility] ABSTRACTION Provider, Abstract 06/11/[address] [phone] YingKenzien, FIREPERSON Patient Communication 06/10/2025 12:45 PM CDT - 06/10/2025 11:59 PM CDT Hospital Encounter [facility] [address] [phone] Ying, Crystal Carrie, FIREPERSON Discharge Disposition: Home or Self Care 06/10/2025 6:30 AM CDT - 06/10/2025 11:59 PM CDT Hospital Encounter [facility] [address] [phone] Ying, Crystal Carrie, FIREPERSON Discharge Disposition: Home or Self Care 06/06/2025 Telephone [facility] [address] [phone] Claudia Meza RN nmst instructions 06/06/2025 Telephone [facility] [address] [phone] Tiny Pierce, PCT nmst instructions 06/04/2025 External Device Data [facility] ABSTRACTION Provider, Abstract 06/04/[address] [place] [address] Kenzie He, NIESHA Referral (Stress Test); Patient Communication 05/31/[address] [place] [phone] Jace Gonzalez MD updated phone number 05/30/2025 Results Follow-Up [address] [place] [phone] Shayna Hinton FNP COMPREHENSIVE METABOLIC PANEL, LIPASE 05/30/2025 Results Follow-Up [address] [place] [phone] Shayna Hinton FNP XR ABDOMEN ACUTE SERIES 2+ VWS W CXR 05/29/2025 3:07 PM CDT - 05/29/2025 11:59 PM CDT [facility] [address] [place] [address] Shayna Hinton FNP Discharge Disposition: Home or Self Care 05/29/2025 3:05 PM CDT - 05/29/2025 11:59 PM CDT Hospital Encounter [facility] [place] [address] [place] [address] Shayna Hinton FNP Epigastric pain Discharge Disposition: Home or Self Care 05/29/2025 2:40 PM CDT Office Visit [address] [place] [address] Shayna Hinton FNP Epigastric pain (Primary Dx); HTN (hypertension), benign; Essential hypertension 05/29/[address] [place] [address] Shayna Hinton FNP Medication 05/29/2025 Lab Requisition [facility] [place] [address] [place] [phone] Shayna Hinton, FIREPERSON Epigastric pain 05/28/2025 External Device Data [facility] ABSTRACTION Provider, Abstract 05/28/2025 External Device Data [facility] ABSTRACTION Provider, Abstract 05/28/2025 External Device Data [facility] ABSTRACTION Provider, Abstract 05/23/[address] [phone] Ying, Crystal Carrie, FIREPERSON Chronic daily headache; Chronic combined systolic and diastolic congestive heart failure ([facility]/HCC); Hx of blood clots; Moderate episode of recurrent major depressive disorder ([facility]); Bipolar 2 disorder ([facility]); Type 2 diabetes mellitus with hyperglycemia, with long-term current use of insulin ([facility]) 05/22/2025 External Device Data [facility] ABSTRACTION Provider, Abstract 05/21/[address] [phone] Ying, Crystal Carrie, FIREPERSON Chronic combined systolic and diastolic congestive heart failure ([facility]/HCC); Essential hypertension; Type 2 diabetes mellitus with hyperglycemia, with long-term current use of insulin ([facility]); Fibromyalgia; Other chest pain 05/20/[address] [phone] Provider, Abstract 05/16/2025 Telephone [facility] Medicine [address] [place] [phone] Tiny Pierce, PCT nmst insrtuctions 05/08/[address] [phone] Jace Gonzalez MD Hospital Follow Up 05/08/2025 External Device Data [facility] ABSTRACTION Provider, Abstract 05/07/2025 External Device Data [facility] ABSTRACTION Provider, Abstract 05/07/2025 External Device Data [facility] ABSTRACTION Provider, Abstract 05/03/[address] [phone] YingKenzie strong FNP Referral (ECHO - Stress Test) 05/02/[address] [phone] Jace Gonzalez MD Hospital Follow Up 05/01/2025 External Device Data [facility] ABSTRACTION Provider, Abstract 04/30/2025 4:51 PM CDT - 04/30/2025 9:47 PM CDT Emergency [facility] Emergency Medicine [address] [phone] Arminda cAosta MD Sindlinger, Timothy S, MD Chest wall pain (Primary Dx); Constipation, unspecified constipation type Discharge Disposition: Home or Self Care 04/30/2025 Travel 04/29/2025 12:36 PM CDT - 04/29/2025 11:59 PM CDT Hospital Encounter [facility] [address] [phone] YingKenzie, FIREPERSON Discharge Disposition: Home or Self Care 04/29/2025 Results Follow-Up [address] [phone] YingKenzie, FIREPERSON T4 FREE, TSH, HEMOGLOBIN A1C, Additional followed-up results: 4 04/26/2025 3:00 PM CDT Office Visit [address] [phone] YingKenzie, FIREPERSON Small bowel obstruction (CMS/HCC) (Primary Dx); Esophageal dysphagia; Indigestion; Type 2 diabetes mellitus with hyperglycemia, with long-term current use of insulin (CMS/HCC); Chronic combined systolic and diastolic congestive heart failure (CMS/HCC); Bipolar 2 disorder (CMS/HCC); Simple chronic bronchitis (CMS/HCC); Morbid obesity with body mass index (BMI) of 40.0 or higher (CMS/HCC); Type 2 diabetes mellitus with diabetic neuropathy, with long-term current use of insulin ([facility]/HCC); Other chest pain 04/24/2025 Orders Only [facility] [address] [place] [address] Provider, Abstract 04/23/[address] [phone] Jace Gonzalez MD Appointment Notification; Patient Communication 04/19/[address] [phone] Ying, Kenzie Carrie, FIREPERSON Mixed hyperlipidemia 04/17/[address] [phone] Jace Gonzalez MD Information; Hospital Follow Up from Last 3 Months Immunizations Immunization Administration [...] Never Smokeless Tobacco: Never Tobacco Cessation:Counseling Given: Yes Alcohol Use Standard Drinks/Week Comments No 0 (1 standard drink = 0.6 oz pur e alcohol) Feeling Safe Answer Date Recorded Are you in a relationship wi th someone who hurts you emotionally and/or physically? 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 Gender Identity Female 07/01/2025 11:41 AM CDT Sexual Orientation Asexual 07/01/2025 11 :41 AM CDT Last Filed Vital Signs Vital Sign Reading Time Taken Comments Blood Pressure 192/104 05/29/2025 2:49 PM CDT Pulse 76 05/29/2025 2:44 PM CDT Temperature 36.5 C (97.7 F) 05/29/2025 2:44 PM CDT Respiratory Rate 17 05/29/2025 2:44 PM CDT Oxygen Saturation 97% 05/29/2025 2:44 PM CDT Inhaled Oxygen Concentration - - Weight 102.1 kg (225 lb) 05/29/2025 2:44 PM CDT Height 162.6 cm (5' 4 ) 05/29/2025 2:44 PM CDT Body Mass Index 38.62 05/29/2025 2:44 PM CDT Plan of Treatment Health Maintenance Due [...] 02/05/2016 ZOSTER VACCINE (1 of 2) 2021 LISA uACR (Auto Order) 09/05/2024 05/25/2024 Preventative Visit- Commercial 09/05/2024 INFLUENZA VACCINE (#1) 2025 DIABETES MICROALBUMIN ANNUAL SCREEN 05/25/2025 05/25/2024 LDL CHOLESTEROL ANNUAL 05/25/2025 05/25/2024, 2020 DIABETES ANNUAL FOOT EXAM 06/25/2025 06/25/2024 DIABETES: A1C (Auto Order) 07/27/202504/26, 05/25/2024, 11/03/2020, Additional history exists DIABETES HBA1C Q 6 MONTHS 10/27/20252024, 05/25/2024, 11/03/2020, Additional history exists Colorectal Cancer Screening 06/19/2027 FIT-DNA Q 3 years 06/19/2027 06/19/2024 FIT/ DNA Q 3 YEARS (AUTO ORDER) 06/19/2027 , 06/19/2024 Colorectal Cancer Screening (AUTO ORDER) 06/19/2029 FLEX SIG/CT COLONOGRAPHY Q 5 YEARS (AUTO ORDER) 06/19/2029 06/19/2024, 06/19/2024 KHE eGFR (Auto Order) Completed 05/29/2025 , 04/30/2025, 04/26/2025, Additional history exists Medical Devices Implanted Type Area Mainspring Former Device Identifier Shelf Expiration Date Model / Serial / Lot Physiomesh Oval [id number] - Sna Implanted:Qty: 1 on 01/11/2012 by Luciano Weems MD Mesh N/A: Abdomen 09/04/2012 [id number] / NA / [id number] Procedures Procedure Name Priority Date/Time Associated Diagnosis Comments NM MYOCARD PERF IMAG SPECT MULT Routine 06/10/2025 3:20 PM CDT Chronic combined systolic and diastolic congestive heart failure (CMS/HCC) Other chest pain NM PHARMACOLOGICAL STRESS TEST Routine 06/10/2025 2:26 PM CDT Chronic combined systolic and diastolic congestive heart failure (CMS/HCC) Other chest pain XR ABDOMEN ACUTE SERIES W CXR Routine 05/29/2025 3:37 PM CDT Epigastric pain LIPASE Stat 05/29/2025 3:20 PM CDT Epigastric pain COMPREHENSIVE METABOLIC PANEL Stat 05/29/2025 3:20 PM CDT Epigastric pain XR ABDOMEN ACUTE SERIES W CXR Stat 04/30/2025 7:04 PM CDT LACTIC ACID Stat 04/30/2025 5:07 PM CDT BRAIN NATRIURETIC PEPTIDE, BNP OR PROBNP Stat 04/30/2025 5:07 PM CDT LIPASE Stat 04/30/2025 5:07 PM CDT COMPREHENSIVE METABOLIC PANEL Stat 04/30/2025 5:07 PM CDT CBC WITH DIFFERENTIAL Stat 04/30/2025 5:07 PM CDT URINALYSIS MICROSCOPY ONLY Stat 04/30/2025 4:30 PM CDT URINALYSIS W/REFLEX MICROSCOPIC Stat 04/30/2025 4:30 PM CDT XR ABDOMEN 1 VW Routine 04/29/2025 12:47 PM CDT Small bowel obstruction (CMS/HCC) CBC WITH DIFFERENTIAL Routine 04/26/2025 4:06 PM CDT Type 2 diabetes mellitus with hyperglycemia, with long-term current use of insulin (CMS/HCC) COMPREHENSIVE METABOLIC PANEL Routine 04/26/2025 4:06 PM CDT Type 2 diabetes mellitus with hyperglycemia, with long-term current use of insulin (CMS/HCC) HEMOGLOBIN A1C Routine 04/26/2025 4:06 PM CDT Type 2 diabetes mellitus with hyperglycemia, with long-term current use of insulin (CMS/HCC) TSH Routine 04/26/2025 4:06 PM CDT Type 2 diabetes mellitus with hyperglycemia, with long-term current use of insulin (CMS/HCC) T4 FREE Routine 04/26/2025 4:06 PM CDT Type 2 diabetes mellitus with hyperglycemia, with long-term current use of insulin (CMS/HCC) COMPREHENSIVE METABOLIC PANEL Routine 04/17/2025 10:46 AM CDT COLON CANCER SCREEN, STOOL DNA Routine 06/19/2024 9:00 PM CDT Encounter for colorectal cancer screening MICROALBUMIN/CREATININE RATIO, RANDOM UR Routine 05/25/2024 2:01 PM CDT Type 2 diabetes mellitus with hyperglycemia, with long-term current use of insulin ([facility]/HCC) LIPID PANEL Routine 05/25/2024 2:01 PM CDT Type 2 diabetes mellitus with hyperglycemia, with long-term current use of insulin ([facility]/HCC) Chronic combined systolic and diastolic congestive heart failure ([facility]) Morbid obesity with body mass index (BMI) of 40.0 or higher ([facility]) Essential hypertension from Last 3 Months or Most Recently Relevant to Health Maintenance Results * NM MYOCARD PERF IMAG SPECT MULT (06/10/2025 3:20 PM CDT) Pathologist [facility] EJECTION FRACTION 50 50 - 65 % INTERFACE SYSTEM 06/10/2025 3:26 PM CDT Impressions INTERFACE SYSTEM - 06/10/2025 4:42 PM CDT Impression: 1. Myocardial perfusion imaging is probably normal but technically difficult due to areas of attenuation. No obvious reversible defect is noted to suggest significant myocardial ischemia by visual or computer-assisted quantitative analysis. No obvious fixed defect is noted to suggest transmural myocardial injury. Areas of attenuation as noted above 2. Global left ventricular systolic function is normal without segmental abnormalities and ejection fraction of 50%. 3. Nonischemic response to stress by electrocardiographic criterion without development of chest pain. 4. No previous study is available for direct comparison. Corbin esquivel MD Narrative INTERFACE SYSTEM - 06/10/2025 4:42 PM CDT Rest/Stress One-day Single Isotope SPECT Myocardial Perfusion Imaging with Pharmacologic Stress and Gated Ejection Fraction Clinical Indication and History: Chest pain. 55-year-old female patient with history of hypertension and diabetes. Patient is 64 inches tall and weighs 225 lb. Pharmacologic stress testing was performed with Regadenoson 0.4 mg injected intravenously over 10 seconds. The patient reported cough during stress test. Rest Tc99m dose was injected 10-20 seconds after the saline flush. Myocardial perfusion imaging was performed at rest (30 minutes following the intravenous injection of 10.4 mCi of Tc99m Tetrofosmin). At peak pharmacologic effect, the patient was intravenously injected with 31.7 mCi of Tc99m Tetrofosmin. Gated post-stress tomographic imaging was performed 45 minutes after stress. Anterior planar and gated cardiac SPECT views were obtained and data reconstructed in the short, horizontal long and vertical long axis views. The resting heart rate was 66 beats per minute and peak heart rate during stress was 89 beats per minute. Blood pressure was 153/101 mmHg at rest and 140/76 mm Hg at peak stress. Blood pressure response was appropriate during the stress procedure. The resting electrocardiogram demonstrated normal sinus rhythm, with minimal baseline ST-segment changes in nondiagnostic T wave changes. During stress, no significant ST-T changes were noted. There was evidence of no significant new arrhythmias. Findings: The overall quality of the study is poor. There is evidence of soft tissue attenuation artifact. There is increased splanchnic tracer uptake and tracer activity in the vicinity of the inferior myocardium contaminating the cardiac field in both the resting and the poststress upright images and less prominent in the poststress supine images Left ventricular cavity is noted to be normal in size on the rest images without further dilatation on post stress images. SPECT images demonstrate homogeneous tracer distribution and myocardial perfusion except a small to moderate size, mild to moderate intensity, mostly fixed perfusion defect in the apical and periapical myocardium extending into the distal anteroseptal myocardium likely representing attenuation artifact. There is a small sized, mild intensity, mostly fixed perfusion defect in the lateral and anterolateral myocardium likely resenting attenuation artifact. Gated SPECT imaging reveals normal myocardial thickening and wall motion of all visualized segments. The left ventricular ejection fraction was calculated to be 50%, with an end-diastolic volume of 137 ml. Procedure Note Corbin Esquivel MD - 06/10/2025 Rest/Stress One-day Single Isotope SPECT Myocardial Perfusion Imaging with Pharmacologic Stress and Gated Ejection Fraction Clinical Indication and History: Chest pain. 55-year-old female patient with history of hypertension and diabetes. Patient is 64 inches tall and weighs 225 lb. Pharmacologic stress testing was performed with Regadenoson 0.4 mg injected intravenously over 10 seconds. The patient reported cough during stress test. Rest Tc99m dose was injected 10-20 seconds after the saline flush. Myocardial perfusion imaging was performed at rest (30 minutes following the intravenous injection of 10.4 mCi of Tc99m Tetrofosmin). At peak pharmacologic effect, the patient was intravenously injected with 31.7 mCi of Tc99m Tetrofosmin. Gated post-stress tomographic imaging was performed 45 minutes after stress. Anterior planar and gated cardiac SPECT views were obtained and data reconstructed in the short, horizontal long and vertical long axis views. The resting heart rate was 66 beats per minute and peak heart rate during stress was 89 beats per minute. Blood pressure was 153/101 mmHg at rest and 140/76 mm Hg at peak stress. Blood pressure response was appropriate during the stress procedure. The resting electrocardiogram demonstrated normal sinus rhythm, with minimal baseline ST-segment changes in nondiagnostic T wave changes. During stress, no significant ST-T changes were noted. There was evidence of no significant new arrhythmias. Findings: The overall quality of the study is poor. There is evidence of soft tissue attenuation artifact. There is increased splanchnic tracer uptake and tracer activity in the vicinity of the inferior myocardium contaminating the cardiac field in both the resting and the poststress upright images and less prominent in the poststress supine images Left ventricular cavity is noted to be normal in size on the rest images without further dilatation on post stress images. SPECT images demonstrate homogeneous tracer distribution and myocardial perfusion except a small to moderate size, mild to moderate intensity, mostly fixed perfusion defect in the apical and periapical myocardium extending into the distal anteroseptal myocardium likely representing attenuation artifact. There is a small sized, mild intensity, mostly fixed perfusion defect in the lateral and anterolateral myocardium likely resenting attenuation artifact. Gated SPECT imaging reveals normal myocardial thickening and wall motion of all visualized segments. The left ventricular ejection fraction was calculated to be 50%, with an end-diastolic volume of 137 ml. Impression: 1. Myocardial perfusion imaging is probably normal but technically difficult due to areas of attenuation. No obvious reversible defect is noted to suggest significant myocardial ischemia by visual or computer-assisted quantitative analysis. No obvious fixed defect is noted to suggest transmural myocardial injury. Areas of attenuation as noted above 2. Global left ventricular systolic function is normal without segmental abnormalities and ejection fraction of 50%. 3. Nonischemic response to stress by electrocardiographic criterion without development of chest pain. 4. No previous study is available for direct comparison. Coribn esquivel MD Kenzie He [employer] NM ORDERABLES Final Re sult INTERFACE SYSTEM Refer to clinic/hospital department * NM PHARMACOLOGICAL STRESS TEST (06/10/2025 2:26 PM CDT) 06/10/2025 2:33 PM CDT Impressions INTERFACE SYSTEM - 06/10/2025 4:42 PM CDT Impression: 1. Myocardial perfusion imaging is probably normal but technically difficult due to areas of attenuation. No obvious reversible defect is noted to suggest significant myocardial ischemia by visual or computer-assisted quantitative analysis. No obvious fixed defect is noted to suggest transmural myocardial injury. Areas of attenuation as noted above 2. Global left ventricular systolic function is normal without segmental abnormalities and ejection fraction of 50%. 3. Nonischemic response to stress by electrocardiographic criterion without development of chest pain. 4. No previous study is available for direct comparison. Corbin esquivel MD Narrative INTERFACE SYSTEM - 06/10/2025 4:42 PM CDT Rest/Stress One-day Single Isotope SPECT Myocardial Perfusion Imaging with Pharmacologic Stress and Gated Ejection Fraction Clinical Indication and History: Chest pain. 55-year-old female patient with history of hypertension and diabetes. Patient is 64 inches tall and weighs 225 lb. Pharmacologic stress testing was performed with Regadenoson 0.4 mg injected intravenously over 10 seconds. The patient reported cough during stress test. Rest Tc99m dose was injected 10-20 seconds after the saline flush. Myocardial perfusion imaging was performed at rest (30 minutes following the intravenous injection of 10.4 mCi of Tc99m Tetrofosmin). At peak pharmacologic effect, the patient was intravenously injected with 31.7 mCi of Tc99m Tetrofosmin. Gated post-stress tomographic imaging was performed 45 minutes after stress. Anterior planar and gated cardiac SPECT views were obtained and data reconstructed in the short, horizontal long and vertical long axis views. The resting heart rate was 66 beats per minute and peak heart rate during stress was 89 beats per minute. Blood pressure was 153/101 mmHg at rest and 140/76 mm Hg at peak stress. Blood pressure response was appropriate during the stress procedure. The resting electrocardiogram demonstrated normal sinus rhythm, with minimal baseline ST-segment changes in nondiagnostic T wave changes. During stress, no significant ST-T changes were noted. There was evidence of no significant new arrhythmias. Findings: The overall quality of the study is poor. There is evidence of soft tissue attenuation artifact. There is increased splanchnic tracer uptake and tracer activity in the vicinity of the inferior myocardium contaminating the cardiac field in both the resting and the poststress upright images and less prominent in the poststress supine images Left ventricular cavity is noted to be normal in size on the rest images without further dilatation on post stress images. SPECT images demonstrate homogeneous tracer distribution and myocardial perfusion except a small to moderate size, mild to moderate intensity, mostly fixed perfusion defect in the apical and periapical myocardium extending into the distal anteroseptal myocardium likely representing attenuation artifact. There is a small sized, mild intensity, mostly fixed perfusion defect in the lateral and anterolateral myocardium likely resenting attenuation artifact. Gated SPECT imaging reveals normal myocardial thickening and wall motion of all visualized segments. The left ventricular ejection fraction was calculated to be 50%, with an end-diastolic volume of 137 ml. Procedure Note Corbin Esquivel MD - 06/10/2025 Rest/Stress One-day Single Isotope SPECT Myocardial Perfusion Imaging with Pharmacologic Stress and Gated Ejection Fraction Clinical Indication and History: Chest pain. 55-year-old female patient with history of hypertension and diabetes. Patient is 64 inches tall and weighs 225 lb. Pharmacologic stress testing was performed with Regadenoson 0.4 mg injected intravenously over 10 seconds. The patient reported cough during stress test. Rest Tc99m dose was injected 10-20 seconds after the saline flush. Myocardial perfusion imaging was performed at rest (30 minutes following the intravenous injection of 10.4 mCi of Tc99m Tetrofosmin). At peak pharmacologic effect, the patient was intravenously injected with 31.7 mCi of Tc99m Tetrofosmin. Gated post-stress tomographic imaging was performed 45 minutes after stress. Anterior planar and gated cardiac SPECT views were obtained and data reconstructed in the short, horizontal long and vertical long axis views. The resting heart rate was 66 beats per minute and peak heart rate during stress was 89 beats per minute. Blood pressure was 153/101 mmHg at rest and 140/76 mm Hg at peak stress. Blood pressure response was appropriate during the stress procedure. The resting electrocardiogram demonstrated normal sinus rhythm, with minimal baseline ST-segment changes in nondiagnostic T wave changes. During stress, no significant ST-T changes were noted. There was evidence of no significant new arrhythmias. Findings: The overall quality of the study is poor. There is evidence of soft tissue attenuation artifact. There is increased splanchnic tracer uptake and tracer activity in the vicinity of the inferior myocardium contaminating the cardiac field in both the resting and the poststress upright images and less prominent in the poststress supine images Left ventricular cavity is noted to be normal in size on the rest images without further dilatation on post stress images. SPECT images demonstrate homogeneous tracer distribution and myocardial perfusion except a small to moderate size, mild to moderate intensity, mostly fixed perfusion defect in the apical and periapical myocardium extending into the distal anteroseptal myocardium likely representing attenuation artifact. There is a small sized, mild intensity, mostly fixed perfusion defect in the lateral and anterolateral myocardium likely resenting attenuation artifact. Gated SPECT imaging reveals normal myocardial thickening and wall motion of all visualized segments. The left ventricular ejection fraction was calculated to be 50%, with an end-diastolic volume of 137 ml. Impression: 1. Myocardial perfusion imaging is probably normal but technically difficult due to areas of attenuation. No obvious reversible defect is noted to suggest significant myocardial ischemia by visual or computer-assisted quantitative analysis. No obvious fixed defect is noted to suggest transmural myocardial injury. Areas of attenuation as noted above 2. Global left ventricular systolic function is normal without segmental abnormalities and ejection fraction of 50%. 3. Nonischemic response to stress by electrocardiographic criterion without development of chest pain. 4. No previous study is available for direct comparison. Corbin esquivel MD Kenzie He [employer] NM ORDERABLES Final Re sult INTERFACE SYSTEM Refer to clinic/hospital department * XR ABDOMEN ACUTE SERIES 2+ VWS W CXR (05/29/2025 3:37 PM CDT) Only the most recent of2 resultswithin the time period is included. Anatomical Region Laterality Modality Abdomen Computed Radiogr aphy 05/29/2025 3:37 PM CDT Impressions 05/30/2025 7:37 AM CDT IMPRESSION: See below. Exam: XR ABDOMEN ACUTE SERIES 2+ VWS W CXR Date/Time of Exam: 05/29/2025 3:37 PM Reason For Exam: See Diagnosis. Diagnosis: Epigastric pain. Findings: Comparison: 04/30/25 Heart size normal. No vascular congestion. There is summation artifact at the right lung base. No acute airspace consolidation, pleural effusion or pneumothorax. Bowel gas pattern is nonobstructive. Normal amount of colonic stool. Limits evaluation for free intraperitoneal gas with the right right hemidiaphragm not fully included on the upright view. No concerning calcifications. Mild scoliosis. No acute osseous abnormality, there are clips overlie the right upper quadrant. There are scattered vascular calcifications overlying the pelvis. There is calcification of splenic artery. IMPRESSION: 1. No acute cardiopulmonary findings. 2. Non-obstructive bowel gas pattern. Normal amount of colon stool. 3. Limited evaluation for free intraperitoneal gas the right hemidiaphragm not fully included on upright view, repeat exam with left lateral decubitus view can be performed as clinically warranted.. Narrative Procedure Note Brody Torre MD - 05/30/2025 IMPRESSION: See below. Exam: XR ABDOMEN ACUTE SERIES 2+ VWS W CXR Date/Time of Exam: 05/29/2025 3:37 PM Reason For Exam: See Diagnosis. Diagnosis: Epigastric pain. Findings: Comparison: 04/30/25 Heart size normal. No vascular congestion. There is summation artifact at the right lung base. No acute airspace consolidation, pleural effusion or pneumothorax. Bowel gas pattern is nonobstructive. Normal amount of colonic stool. Limits evaluation for free intraperitoneal gas with the right right hemidiaphragm not fully included on the upright view. No concerning calcifications. Mild scoliosis. No acute osseous abnormality, there are clips overlie the right upper quadrant. There are scattered vascular calcifications overlying the pelvis. There is calcification of splenic artery. IMPRESSION: 1. No acute cardiopulmonary findings. 2. Non-obstructive bowel gas pattern. Normal amount of colon stool. 3. Limited evaluation for free intraperitoneal gas the right hemidiaphragm not fully included on upright view, repeat exam with left lateral decubitus view can be performed as clinically warranted.. Shayna Hinton [facility] DIAGNOSTIC IMAGING ORDERAB LES Final Result * LIPASE (05/29/2025 3:20 PM CDT) Only the most recent of2 resultswithin the time period is included. LIPASE 40 13 - 60 U/L 05/29/2025 3:44 PM CDT [facility] Blood BLOOD SPECIMEN / Unknown Collection / Unknown 05/29/2025 3:20 PM CDT 05/29/2025 3:24 PM CDT Shayna Hinton [facility] CHEMISTRY ORDERABLES Final Result [facility] CLIA # [id number] [address] [place] [address] * (ABNORMAL) COMPREHENSIVE METABOLIC PANEL (05/29/2025 3:20 PM CDT) Only the most recent of4 resultswithin the time period is included. SODIUM 138 136 - 145 mmol/L 05/29/2025 3:44 PM [facility] POTASSIUM 4.2 3.5 - 5.1 mmol/L 05/29/2025 3:44 PM [facility] CHLORIDE 103 98 - 107 mmol/L 05/29/2025 3:44 PM [facility] CO2 23 22 - 29 mmol/L 05/29/2025 3:44 PM [facility] CALCIUM 9.5 8.6 - 10.0 mg/dL 05/29/2025 3:44 PM [facility] BUN 31(H) 6 - 20 mg/dL 05/29/2025 3:44 PM [facility] CREATININE 0.59 0.51 - 0.95 mg/dL 05/29/2025 3:44 PM [facility] GLUCOSE 127(H) 74 - 99 mg/dL 05/29/2025 3:44 PM [facility] TOTAL PROTEIN 7.4 6.6 - 8.7 g/dL 05/29/2025 3:44 PM [facility] ALBUMIN 4.0 3.5 - 5.2 g/dL 05/29/2025 3:44 PM [facility] BILIRUBIN TOTAL 0.2 0.0 - 1.2 mg/dL 05/29/2025 3:44 PM [facility] ALKALINE PHOSPHATASE 74 35 - 104 U/L 05/29/2025 3:44 PM [facility] AST 23 0 - 35 U/L 05/29/2025 3:44 PM CDT [facility] ALT 19 0 - 35 U/L 05/29/2025 3:44 PM CDT [facility] GFR >60 >=60 mL/min/1.7 3 sq meter 05/29/2025 3:44 PM CDT [facility] Comment:eGFR calculated with 2020 CKD-EPI equation. Vegetarian diet, extremely high or low muscle mass, and may affect results. Cystatin C with Glomerular Filtration Rate is a suitable alternative for these patients. ANION GAP 12 5 - 20 mmol/L 05/29/2025 3:44 PM CDT [facility] Blood BLOOD SPECIMEN / Unknown Collection / Unknown 05/29/2025 3:20 PM CDT 05/29/2025 3:24 PM CDT us Shayna SCHERER CHEMISTRY ORDERABLES Final Result Performing Organization Address [facility]/ZIP Co de Phone Number [facility] CLIA # [id number] [address] [place] [phone] * (ABNORMAL) LACTIC ACID (04/30/2025 5:07 PM CDT) LACTIC ACID 2.1(H) <=2.0 mmol/L 04/30/2025 7:07 PM CDT [facility] Blood BLOOD SPECIMEN / Unknown Collection / Unknown 04/30/2025 5:07 PM CDT 04/30/2025 6:37 PM CDT us Arminda Acosta MD CHEMISTRY ORDERABLES Final Resu lt Performing Organization Address [facility]/ZIP Co de Phone Number [facility] CLIA # [id number] [address] [place] [phone] * (ABNORMAL) CBC WITH DIFFERENTIAL (04/30/2025 5:07 PM CDT) Only the most recent of2 resultswithin the time period is included. WBC 9.9 4.0 - 10.0 K/uL 04/30/2025 6:41 PM [facility] RBC 4.65 3.93 - 5.22 M/uL 04/30/2025 6:41 PM [facility] HEMOGLOBIN 14.1 11.2 - 15.7 g/dL 04/30/2025 6:41 PM [facility] HEMATOCRIT 40.1 34.1 - 44.9 % 04/30/2025 6:41 PM [facility] MCV 86.2 79.4 - 94.8 fL 04/30/2025 6:41 PM [facility] MCH 30.3 25.6 - 32.2 pg 04/30/2025 6:41 PM [facility] MCHC 35.2 32.2 - 35.5 g/dL 04/30/2025 6:41 PM [facility] RDW 12.8 11.0 - 14.5 % 04/30/2025 6:41 PM [facility] RDW-STDEV 39.8 36.9 - 56.9 fL 04/30/2025 6:41 PM [facility] PLATELETS 323 163 - 337 K/uL 04/30/2025 6:41 PM [facility] MPV 11.4 10.0 - 14.8 fL 04/30/2025 6:41 PM [facility] NEUTROPHILS 59 34 - 71 % 04/30/2025 6:41 PM [facility] LYMPHOCYTES 27 19 - 52 % 04/30/2025 6:41 PM [facility] MONOCYTES 9 5 - 13 % 04/30/2025 6:41 PM [facility] EOSINOPHILS 4 1 - 6 % 04/30/2025 6:41 PM [facility] BASOPHILS 1 0 - 1 % 04/30/2025 6:41 PM [facility] IMMATURE GRANULOCYTES 0 % 04/30/2025 6:41 PM [facility] NEUTROPHIL ABSOLUTE 5.86 1.56 - 6.13 K/uL 04/30/2025 6:41 PM CDT [facility] LYMPHOCYTE ABSOLUTE 2.68 1.20 - 3.40 K/uL 04/30/2025 6:41 PM CDT [facility] MONOCYTE ABSOLUTE 0.85(H) 0.24 - 0.36 K/uL 04/30/2025 6:41 PM CDT [facility] EOSINOPHIL ABSOLUTE 0.42(H) 0.04 - 0.36 K/uL 04/30/2025 6:41 PM CDT [facility] BASOPHILS ABSOLUTE 0.07 0.01 - 0.08 K/uL 04/30/2025 6:41 PM CDT [facility] IMMATURE GRANULOCYTES ABSOLUTE 0.03 K/uL 04/30/2025 6:41 PM CDT [facility] Blood Collection / Unknown 04/30/2025 5:07 PM CDT 04/30/2025 6:37 PM CDT us Arminda Acosta MD HEMATOLOGY ORDERABLES Final Res ult [facility] CLIA # [id number] [address] [place] [address] * (ABNORMAL) BRAIN NATRIURETIC PEPTIDE, BNP OR PROBNP (04/30/2025 5:07 PM CDT) PROBNP, N TERMINAL 425(H) 0 - 125 pg/mL 04/30/2025 7:07 PM CDT [facility] Comment: INTERPRETIVE COMMENT based on diagnosis: Diagnostic NT pro-BNP cutoffs for Heart Failure in the absence of renal failure is suggested for the following ranges <75 years: <125 pg/mL >=75 years: <450 pg/mL Exclusionary rule out cut-point for Acute Decompensated Heart Failure(ADHF) All ages: <300 pg/mL Diagnostic NT pro-BNP cutoffs for Acute Decompensated Heart Failure(ADHF) in the absence of renal failure is suggested for the following ages <50 years: > 450 pg/mL 50-75 years: > 900 pg/mL >75 years: >1800 pg/mL Blood Collection / Unknown 04/30/2025 5:07 PM CDT 04/30/2025 6:37 PM CDT us Arminda Acosta MD CHEMISTRY ORDERABLES Final Resu lt Performing Organization Address [facility]/ZIP Co de Phone Number [facility] CLIA # [id number] [address] [place] [address] * URINALYSIS MICROSCOPY ONLY (04/30/2025 4:30 PM CDT) WBC UA 0-2 0 - 2 /hpf 04/30/2025 5:08 PM CDT [facility] RBC UA 0-2 0 - 2 /hpf 04/30/2025 5:08 PM CDT [facility] BACTERIA UA Negative Negative /hpf 04/30/2025 5:08 PM CDT [facility] EPITHELIAL CELLS, URINE 0-5 0 - 5 /hpf 04/30/2025 5:08 PM CDT [facility] Urine URINE SPECIMEN OBTAINED BY CLEAN CATCH PROCEDURE / Unknown Collection / Unknown 04/30/2025 4:30 PM CDT 04/30/2025 5:01 PM CDT us Arminda Acosta MD URINE ORDERABLES Final Result Performing Organization Address [facility] Co de Phone Number [facility] CLIA # [id number] [address] [place] [phone] * (ABNORMAL) URINALYSIS WITH REFLEX MICROSCOPIC (04/30/2025 4:30 PM CDT) COLOR UA Yellow Pale to Dark Yellow 04/30/2025 5:08 PM CDT [facility] CLARITY UA Clear Clear 04/30/2025 5:08 PM CDT [facility] SPECIFIC GRAVITY UA >=1.030 1.003 - 1.035 04/30/2025 5:08 PM CDT [facility] PH UA 5.5 5.0 - 8.0 04/30/2025 5:08 PM CDT [facility] LEUKOCYTE ESTERASE UA Negative Negative 04/30/2025 5:08 PM CDT [facility] NITRITE UA Negative Negative 04/30/2025 5:08 PM CDT [facility] PROTEIN UA 3+(A) Negative 04/30/2025 5:08 PM CDT [facility] GLUCOSE UA Negative Negative 04/30/2025 5:08 PM CDT [facility] KETONES UA Negative Negative 04/30/2025 5:08 PM CDT [facility] UROBILINOGEN UA 0.2 <2.0 mg/dL 5:08 PM CDT [facility] BILIRUBIN UA Negative Negative 04/30/2025 5:08 PM CDT [facility] BLOOD UA Trace(A) Negative 04/30/2025 5:08 PM CDT [facility] Urine URINE SPECIMEN OBTAINED BY CLEAN CATCH PROCEDURE / Unknown Collection / Unknown 04/30/2025 4:30 PM CDT 04/30/2025 5:01 PM CDT Arminda Acosta MD URINE ORDERABLES Final Result [id number] [address] [place] [id number] * XR ABDOMEN 1 VW (04/29/2025 12:47 PM CDT) Anatomical Region Laterality Modality Abdomen Computed Radiogr aphy 04/29/2025 12:4 7 PM CDT Impressions 04/29/2025 4:41 PM CDT IMPRESSION: Please see below. Exam: XR ABDOMEN 1 VW Date/Time of Exam: 04/29/2025 12:47 PM Reason For Exam: See Diagnosis. Diagnosis: Small bowel obstruction (CMS/HCC). Comparison: None Findings: No small or large bowel distention or free air. Scattered clips in the right upper and bilateral lower quadrants. No evidence of free air. Mild elevation of the right diaphragm. The lung bases are clear. Leftward curvature of the mid to lower lumbar spine. No acute osseous abnormality. Small calcifications project over the right iliac wing. IMPRESSION:. Unremarkable bowel gas pattern. Narrative Procedure Note John Mccurdy MD - 04/29/2025 IMPRESSION: Please see below. Exam: XR ABDOMEN 1 VW Date/Time of Exam: 04/29/2025 12:47 PM Reason For Exam: See Diagnosis. Diagnosis: Small bowel obstruction (CMS/HCC). Comparison: None Findings: No small or large bowel distention or free air. Scattered clips in the right upper and bilateral lower quadrants. No evidence of free air. Mild elevation of the right diaphragm. The lung bases are clear. Leftward curvature of the mid to lower lumbar spine. No acute osseous abnormality. Small calcifications project over the right iliac wing. IMPRESSION:. Unremarkable bowel gas pattern. Kenzie He [facility] DIAGNOSTIC IMAGING ORDER BHARATHI Final Result * TSH (04/26/2025 4:06 PM CDT) Pathologist [facility] TSH 3.51 mIU/L [facility] Comment: Reference Range > or = 20 Years 0.40-4.50 Ranges First trimester 0.26-2.66 Second trimester 0.55-2.73 Third trimester 0.43-2.91 Test Performed at: [facility] [address] [place] [address] Ada Pulliam MD Blood 04/26/2025 4:06 PM CDT 04/28/2025 3:40 AM CDT [employer] CHEMISTRY ORDERABLES Fin al Result [facility] [phone] [facility] [address] [place] [phone] * T4 FREE (04/26/2025 4:06 PM CDT) Pathologist [facility] T4 FREE 1.0 0.8 - 1.8 ng/dL [facility] Comment: Test Performed at: [employer] [place] [address] Ada Pulliam MD Blood 04/26/2025 4:06 PM CDT 04/28/2025 3:40 AM CDT Kenzie He [employer] CHEMISTRY ORDERABLES Fin al Result Performing Organization Address City/[facility]/ZIP Co de Phone Number [facility] [phone] [facility] [address] [facility] [place] [address] * (ABNORMAL) HEMOGLOBIN A1C (04/26/2025 4:06 PM CDT) HEMOGLOBIN A1C 8.0(H) <5.7 % [facility] Comment: For someone without known diabetes, [...] diabetes for children. ESTIMATED AVERAGE GLUCOSE (MG/DL) 183 mg/dL [facility] ESTIMATED AVERAGE GLUCOSE (MMOL/L) 10.1 mmol/L [facility] Comment: Test Performed at: [facility] [address] [facility] [place] [address] Ada Pulliam MD Blood 04/26/2025 4:06 PM CDT 04/28/2025 3:40 AM CDT Kenzie He [employer] CHEMISTRY ORDERABLES Fin al Result Performing Organization Address City/[facility]/ZIP Co de Phone Number [facility] [phone] [facility] [address] [address] [facility] [place] [address] * COLON CANCER SCREEN, STOOL DNA (06/19/2024 9:00 PM CDT) COLOGUARD RESULT Negative Negative [facility] Comment: NEGATIVE TEST RESULT. A negative Cologuard [...] screened with both Cologuard and colonoscopy. (Nina Escobedo. et al, N Engl J Med 2014;370(14):1644-6986) The normal value (reference range) for this assay is negative. COLOGUARD RE-SCREENING RECOMMENDATION: Periodic colorectal cancer screening is an important part of preventive healthcare for asymptomatic individuals at average risk for colorectal cancer. Following a negative Cologuard result, the [employer] and U.S. Multi-Society Task Force screening guidelines recommend a Cologuard re-screening interval of 3 years. References: [employer] Guideline for Colorectal Cancer Screening: https://www.cancer.org/cancer/xgbdk-dlytkj-cbgsfr/rradjtnnh-ydkmiwovw-emiyvwu/ac s-rec ommendations.html.; Cody SALCEDO, Christy SANTIAGO, Zion RuckerK, Colorectal Cancer Screening: Recommendations for Physicians and Patients from the U.S. Multi-Society Task Force on Colorectal Cancer Screening , Am J Gastroenterology 2017; 112:0187-1926. TEST DESCRIPTION: Composite algorithmic analysis of stool [...] Hastings et al, N Engl J Med 2014;370(14):9529-7539.) Cologuard may produce a false negative or false positive result (no colorectal cancer or precancerous polyp present at colonoscopy follow up). A negative Cologuard test result does not guarantee the absence of CRC or advanced adenoma (pre-cancer). The current Cologuard screening interval is every 3 years. ([employer] [employer] and U.S. Multi-Society Task Force). Cologuard performance data in a 10,000 patient pivotal study using colonoscopy as the reference method can be accessed at the following location: [email or web address]. Additional description of the Cologuard test process, warnings and precautions can be found at [email or web address]. Stool STOOL SPECIMEN / Unknown 06/19/2024 9:00 PM CDT 06/21/2024 6:09 PM CDT Kenzie Leonardlee He FI[employer]PERSON BODY FLUIDS AND STOOLS F inal Result [facility] CLIA # [id number] [address] , [address] [place] [address] * (ABNORMAL) MICROALBUMIN/CREATININE RATIO, RANDOM UR (05/25/2024 [...] within a diagnostic category. Test Performed at: [facility] [address] [place] [address] Ada Pulliam MD Urine URINE SPECIMEN OBTAINED BY CLEAN CATCH PROCEDURE / Unknown 05/25/2024 2:01 PM CDT 05/26/2024 6:35 AM CDT Kenzie Leonardlee He FIREPERSON URINE ORDERABLES Final R esult [facility] [phone] [address] [address] [place] [address] * (ABNORMAL) LIPID PANEL (05/25/2024 2:01 PM CDT) CHOLESTEROL 368(H) <200 mg/dL [facility] [place] HDL 61 > OR = 50 mg/dL [facility] [place] TRIGLYCERIDE 345(H) <150 mg/dL [facility] [place] Comment: If a non-fasting specimen was collected, consider repeat triglyceride testing on a fasting specimen if clinically indicated. Estephania et al. J. of Clin. Lipidol. 2015;9:129-169. LDL CALCULATED 249(H) mg/dL (calc) [facility] [place] Comment: LDL-C levels > or = 190 [...] about testing for familial hypercholesterolemia, please call [facility] Services at [phone]. Best T, et al. J National Lipid Association Recommendations for Patient-Centered Management of Dyslipidemia: Part 1 Journal of Clinical Lipidology 2015;9(2), 129-169. Sindy Vitale. et al. (2014). Homozygous familial hypercholesterolaemia: new insights and guidance for clinicians to improve detection and clinical management. Heart Journal, 35(32), 2316-7609. Reference range: <100 Desirable range <100 mg/dL for primary prevention; <70 mg/dL for patients with CHD or diabetic patients with > or = 2 CHD risk factors. LDL-C is now calculated using the Arthur-Renae calculation, which is a validated novel method providing better accuracy than the Friedewald equation in the estimation of LDL-C. Arthur SS et al. CASA. 2013;310(19): 1980-4036 (http://education.Harri/faq/UCT535) CHOL/HDL RATIO 6.0(H) <5.0 (calc) [facility] [place] NON-HDL CHOLESTEROL 307(H) <130 mg/dL (calc) [facility] Comment: Non-HDL level > or = 220 [...] considered a therapeutic option. 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
[2025-07-18 14:22] VITALS: BP 148/98; O2SAT 93
[2025-07-18] MEDS: HYDROcodone-acetaminophen 10-325 mg Tablet 1 TAB PO (14:37)
[2025-07-18 14:39] VITALS: BP 160/99; PULSE 80; RESP 16; O2SAT 95
== END 2025-07-18 15:00 | disposition home or self-care (01) ==
PROVIDERS: Emergency Provider Emergency Medicine; PCP Family Medicine
DX: S20.20XA Contusion of thorax, unspecified, initial encounter (principal); Z79.84 Long term (current) use of oral hypoglycemic drugs; Z79.01 Long term (current) use of anticoagulants; Z79.4 Long term (current) use of insulin; I25.10 Atherosclerotic heart disease of native coronary artery without angina pectoris; E78.5 Hyperlipidemia, unspecified; I11.0 Hypertensive heart disease with heart failure; I50.9 Heart failure, unspecified; E11.40 Type 2 diabetes mellitus with diabetic neuropathy, unspecified; W19.XXXA Unspecified fall, initial encounter
CPT/HCPCS: 71101; 99283; J9999